=== PATIENT | female | born 1990 | race Caucasian/White ===

== ENCOUNTER 2022-06-26 08:00 | Outpatient (RCR) | payer OTHER, SELFPAY ==
[2022-06-26] MEDS: RHO(D) IMMUNE GLOBULIN 300 MCG/2 ML SYRINGE IM (11:33)
== END 2022-06-26 08:05 | disposition home or self-care (01) ==
LOC: ANHLAB 08:00
PROVIDERS: Visit Provider Advanced Practice Midwife
DX: Z29.13 Encounter for prophylactic Rho(D) immune globulin (principal); O36.0190 Maternal care for anti-D [Rh] antibodies, unspecified trimester, not applicable or unspecified; Z3A.00 Weeks of gestation of pregnancy not specified
CPT/HCPCS: 36415; 85461; 86850; 86900; 86901; 90384; 96372; J2790

== ENCOUNTER 2022-08-16 18:13 | Outpatient (CLI) | payer OTHER, SELFPAY ==
[2022-08-16] VITALS (14 sets, daily range): BP systolic 129–147; BP diastolic 71–91; PULSE 90–126
[2022-08-16 19:11] LABS: Basophils Percent Auto 0.3 % (0.2-1.2); Eosinophils Absolute Auto 0.2 K/mm3 (0-0.3); Eosinophils Percent Auto 1.3 % (0-4.4); Hematocrit 32.8 % (37.0-47.0); Hemoglobin 11.1 g/dL (12.0-15.0); Immature Granulocyte Absolute 0.07 K/mm3 (0.00-0.031); Immature Granulocyte Percent A 0.6 % (0-0.5); Lymphocytes Absolute Auto 2.31 K/mm3 (0.9-3.2); Lymphocytes Percent Auto 19.3 % (18.3-44.2); Mean Corpuscular HGB Conc 33.8 g/dl (32-36); Mean Corpuscular Hemoglobin 29.4 pg (26-34); Mean Platelet Volume 9.5 fl (7.4-10.4); Neutrophils Absolute Auto 8.4 K/mm3 (1.3-6.7); Neutrophils Percent Auto 70.5 % (45.5-73.1); Platelet Count Result 377 k/mm3 (150-375); Red Blood Count 3.77 M/mm3 (4.2-5.4); Red Cell Distribution Width 12.6 % (11.5-14.5); White Blood Count 11.9 K/mm3 (4.5-10.0)
[2022-08-16 19:23] LABS: Alanine Aminotransferase 13 U/L (6-35); Albumin Level 3.6 g/dL (3.5-5.1); Alkaline Phosphatase 177 U/L (38-126); Anion Gap 6 mmol/L (8-16); Aspartate Amino Transferase 18 U/L (14-36); Bilirubin,Total 0.4 mg/dL (0.2-1.3); Blood Urea Nitrogen 9 mg/dL (7-17); Calcium 9.2 mg/dL (8.4-10.2); Carbon Dioxide 24 mmol/L (22-30); Chloride 106 mmol/L (98-107); Estimated Glomerular Filt Rate > 60; Glucose 79 mg/dL (65-110); Potassium 4.2 mmol/L (3.4-5.0); Sodium 136 mmol/L (137-145)
[2022-08-16 19:26] LABS: Creatinine Urine 71.8 mg/dL; Total Protein Urine Random 11 mg/dL; Ur Ttl Prot Creatinine Ratio 0.15 mg/mg (0-0.20)
[2022-08-16 19:38] LABS: Appearance Urine Clear (Clear); Bacteria Urine 1+ /hpf; Bilirubin Urine Negative (Negative); Blood Urine Negative (Negative); Color Urine Yellow (Yellow); Glucose Urine UA Negative (Negative); Ketones Urine Negative (Negative); Leukocyte Esterase Ur 1+ LEU/UL (NEGATIVE); Need Manual Microscopic Reviewed; Nitrate Urine Negative (Negative); Non Pathogenic Casts 0-2; Protein Urine Negative (Negative); RBC Urine 0-2 /hpf (0-2); Specific Grav Ur 1.021 (1.001-1.035); Squamous Epithelial Cell Urine Occasional /hpf (Few); WBC Urine 0-5 /hpf (0-3); pH Urine 6.5 (5.0-9.0)
[2022-08-16 19:39] LABS: Add Urine Microscopic? YES
[2022-08-16] MEDS: ACETAMINOPHEN/BUTALBITAL/CAFFEINE 325-50-40 MG TABLET (FIORICET) 2 TAB PO (20:38)
[2022-08-16] MEDS: TERBUTALINE SULFATE 1 MG/ML VIAL 0.25 MG SUB-Q (21:14)
== END 2022-08-16 22:35 | disposition home or self-care (01) ==
LOC: ANHOBOP 18:20 → ANHOBPP 18:20
PROVIDERS: Visit Provider Advanced Practice Midwife
DX: O13.9 Gestational [pregnancy-induced] hypertension without significant proteinuria, unspecified trimester (principal); Z3A.00 Weeks of gestation of pregnancy not specified
CPT/HCPCS: 36415; 59025; 80053; 81001; 82570; 84156; 84550; 85025; 87086; 99199; A9270; J3105

== ENCOUNTER 2022-08-18 11:03 | Outpatient (NON) | payer OTHER, SELFPAY ==
[2022-08-18 11:46] LABS: Collection Time Urine 24 HOURS
[2022-08-18 11:50] LABS: Total Volume 24 Hour Urine 1100 ml
[2022-08-18 12:00] LABS: Creatinine Urine 101.7 mg/dL; Total Protein Urine 24 Hr 154 mg/24hr (28-141); Total Protein Urine Random 14 mg/dL
[2022-08-18 12:06] LABS: Creatinine Clearance Urine 125.8 ml/min (75-125); Patient Weight 224 Lbs
== END 2022-08-18 11:04 | disposition home or self-care (01) ==
PROVIDERS: Visit Provider Obstetrics & Gynecology
DX: O99.891 Other specified diseases and conditions complicating pregnancy (principal); R03.0 Elevated blood-pressure reading, without diagnosis of hypertension
CPT/HCPCS: 81050; 82575; 84156

== ENCOUNTER 2022-08-26 00:01 | Inpatient (IN) | payer OTHER, SELFPAY ==
[2022-08-26] VITALS (80 sets, daily range): BP systolic 107–154; BP diastolic 16–106; PULSE 76–143; RESP 12–18; TEMP 35.7–36.8; O2SAT 97–100; BMI 33.5
--- NOTE | 2022-08-26 00:33 | LDADM ---
This patient, Shirlene Johnson, was admitted to Labor/Delivery/Recovery 107 on 08/26/22 at 00:01. Plans for labor, pain management and were discussed with patient. Patient/family oriented to hospital policies and general routines including ID bracelet, bed and alarms, visiting hours, pain management, procedures, bathroom and other care routines, personal items, smoking policy, room service/diet and guest tray routines, security routines, and visiting hours. Patient/Family are encouraged to report perceived risks to care and to ask questions if they do not understand what they are told or what they should do. See OBIX for further documentation.
[2022-08-26] MEDS: OXYTOCIN 30 UNITS/NS 500 ML 30 UNITS/500 ML BAG IV CONT (00:49)
[2022-08-26] MEDS: LACTATED RINGERS 1,000 ML 125 ML IV CONT ×2 (00:49→05:50)
[2022-08-26 01:11] LABS: Basophils Percent Auto 0.3 % (0.2-1.2); Eosinophils Absolute Auto 0.2 K/mm3 (0-0.3); Eosinophils Percent Auto 1.6 % (0-4.4); Hematocrit 32.2 % (37.0-47.0); Hemoglobin 10.9 g/dL (12.0-15.0); Immature Granulocyte Absolute 0.07 K/mm3 (0.00-0.031); Immature Granulocyte Percent A 0.6 % (0-0.5); Mean Corpuscular HGB Conc 33.9 g/dl (32-36); Mean Corpuscular Hemoglobin 29.1 pg (26-34); Mean Corpuscular Volume 86.1 fl (80-100); Mean Platelet Volume 9.8 fl (7.4-10.4); Monocytes Percent Auto 8.3 % (2.6-8.5); Neutrophils Absolute Auto 8.7 K/mm3 (1.3-6.7); Neutrophils Percent Auto 71.2 % (45.5-73.1); Platelet Count Result 389 k/mm3 (150-375); Red Blood Count 3.74 M/mm3 (4.2-5.4); Red Cell Distribution Width 12.8 % (11.5-14.5); White Blood Count 12.2 K/mm3 (4.5-10.0)
[2022-08-26 01:38] LABS: Alanine Aminotransferase 15 U/L (6-35); Albumin Level 3.5 g/dL (3.5-5.1); Alkaline Phosphatase 188 U/L (38-126); Anion Gap 8 mmol/L (8-16); Aspartate Amino Transferase 20 U/L (14-36); Bilirubin,Total 0.4 mg/dL (0.2-1.3); Blood Urea Nitrogen 8 mg/dL (7-17); Calcium 8.7 mg/dL (8.4-10.2); Carbon Dioxide 20 mmol/L (22-30); Chloride 105 mmol/L (98-107); Estimated CRCL calculation 168 ml/min; Estimated Glomerular Filt Rate > 60; Glucose 104 mg/dL (65-110); Potassium 3.7 mmol/L (3.4-5.0); Sodium 133 mmol/L (137-145)
[2022-08-26 04:30] LABS: Glucose Point of Care 90 mg/dl (65-105)
[2022-08-26] MEDS: LACTATED RINGERS 1,000 ML 999 ML IV CONT (05:32)
--- NOTE | 2022-08-26 06:15 | WPDANESEPP ---
Anes - Eval Pre Procedure Procedure: labor epidural Date/Time: 08/26/22 06:15 Surgeon: rubén Preop Diagnosis: pain during labor Pre Op Diagnosis: iol Patient Data Age: 32 Gender: F Height: 1.73 m Weight: 100 kg Last Vital Signs Temp 35.8 C L 08/26/22 04:30 Pulse 99 08/26/22 06:13 BP 135/78 08/26/22 06:13 Pulse Ox 100 08/26/22 06:10 O2 Del Method Room Air 08/26/22 00:32 Allergies Allergy/AdvReac Type Severity Reaction Status Date / Time No Known Allergies Allergy Verified 08/26/22 00:37 Home Medications Medication Instructions Recorded Confirmed Type prenat.vits,aamir,srn-jpsw-issqi 1 tablet PO HS 08/17/22 08/26/22 History Laboratory Tests 08/26/22 08/26/22 08/26/22 00:27 00:28 00:28 WBC 12.2 K/mm3 H K/mm3 (4.5-10.0) RBC 3.74 M/mm3 L M/mm3 (4.2-5.4) Hgb 10.9 g/dL L g/dL (12.0-15.0) Hct 32.2 % L % (37.0-47.0) MCV 86.1 fl fl (80-100) MCH 29.1 pg pg (26-34) MCHC 33.9 g/dl g/dl (32-36) RDW 12.8 % % (11.5-14.5) Plt Count 389 k/mm3 H k/mm3 (150-375) MPV 9.8 fl fl (7.4-10.4) Immature Gran % (Auto) 0.6 % H % (0-0.5) Neut % (Auto) 71.2 % % (45.5-73.1) Lymph % (Auto) 18.0 % L % (18.3-44.2) [place] % (Auto) 8.3 % % (2.6-8.5) Eos % (Auto) 1.6 % % (0-4.4) Baso % (Auto) 0.3 % % (0.2-1.2) Lymph # (Auto) 2.20 K/mm3 K/mm3 (0.9-3.2) [place] # (Auto) 1.0 K/mm3 H K/mm3 (0.1-0.6) Eos # (Auto) 0.2 K/mm3 K/mm3 (0-0.3) Baso # (Auto) 0.0 K/mm3 K/mm3 (0.0-0.1) Abs Immat Gran (auto) 0.07 K/mm3 H K/mm3 (0.00-0.031) Absolute Neuts (auto) 8.7 K/mm3 H K/mm3 (1.3-6.7) Absolute Nucleated RBC 0.0 K/mm3 K/mm3 (0.0-0.012) Nucleated RBC % 0.0 % % (0.0-0.2) Sodium Potassium Chloride Carbon Dioxide Anion Gap BUN Creatinine Estim Creat Clear Calc Estimated GFR Glucose POC Capillary Glucose Uric Acid 4.0 mg/dL mg/dL (2.5-7.5) Calcium Total Bilirubin AST ALT Alkaline Phosphatase Total Protein Albumin RPR Blood Type A Negative Antibody Screen Positive Antibody Identification Inconclusive Antigen Identification Not Reportable ELPIDIO, IgG Interpret Neg ELPIDIO, Poly Interpret Pending ELPIDIO, Complement Interp Not Performed 08/26/22 08/26/22 08/26/22 00:28 00:28 04:24 WBC RBC Hgb Hct MCV MCH MCHC RDW Plt Count MPV Immature Gran % (Auto) Neut % (Auto) Lymph % (Auto) [place] % (Auto) Eos % (Auto) Baso % (Auto) Lymph # (Auto) [place] # (Auto) Eos # (Auto) Baso # (Auto) Abs Immat Gran (auto) Absolute Neuts (auto) Absolute Nucleated RBC Nucleated RBC % Sodium 133 mmol/L L mmol/L (137-145) Potassium 3.7 mmol/L mmol/L (3.4-5.0) Chloride 105 mmol/L mmol/L (98-107) Carbon Dioxide 20 mmol/L L mmol/L (22-30) Anion Gap 8 mmol/L mmol/L (8-16) BUN 8 mg/dL mg/dL (7-17) Creatinine 0.50 mg/dL L mg/dL (0.7-1.0) Estim Creat Clear Calc 168 ml/min ml/min Estimated GFR > 60 (59 - ) Glucose 104 mg/dL mg/dL (65-110) POC Capillary Glucose 90 mg/dl mg/dl (65-105) Uric Acid Calcium 8.7 mg/dL mg/dL (8.4-10.2) Bustera
[2022-08-26 06:41] LABS: Glucose Point of Care 97 mg/dl (65-105)
--- NOTE | 2022-08-26 07:38 | WPDOBADMIT ---
Obstetrics - Admit Note Admission Note: record reviewed. No pertinent additions to the history and/or any subsequent changes in the physical findings that are not consistent with the expected course of the were found. IOL, GHTN, 3.5/70/-2, AROM small amount of clear, odorless fluid, anticipate vaginal delivery Additions to the history and/or subsequent changes in the physical findings follow. None.
--- NOTE | 2022-08-26 10:28 | P.PCNOB_ITS ---
OB - Delivery Note Procedure Delivery date: 08/26/22 Procedure: Events: Gestational Hypertension Induction method: AROM and Per Pitocin Protocol Delivery monitor: External FHT and External Uterine Route of delivery: Episiotomy description: None Laceration Description: None Specimen: No Quantitative Blood Loss (ml): 182 [place] Baby Date of : 08/26/22 Time of : 10:19 Weeks of gestation at delivery: 37 Infant gender: Male presentation: vertex position: Left Occiput Anterior Placenta delivery description: Spontaneous Cord Vessel Description: 3 Vessels, Nuchal Cord (x1), Loose and Delayed Cord Clamping score one minute: 9 score five minutes: 9 Narrative: Mother and baby skin to skin in stable condition
[2022-08-26] MEDS: OXYTOCIN 30 UNITS/NS 500 ML 30 UNITS/500 ML BAG 125 UNITS IV CONT (11:44)
--- NOTE | 2022-08-26 12:49 | OBPPTRN ---
Patient transferred to post room # 284 via wheelchair. Support person present. Oriented to unit, room, information board, rooming in, admission packet and security measures. Patient verbalizes understanding.
--- NOTE | 2022-08-26 12:50 | OBPPTRN ---
Patient transferred to post room # 284 via wheelchair accompanied by and spouse. PT oriented to room and surrounding area. Support person present. Oriented to unit, room, information board, rooming in, admission packet and security measures. Pt introductions made and plan of care discussed per post , pain management, breast feeding, daily care activities. PT and spouse both recipients of such instructions and no barriers to learning identified. PT received such instructions per one to one discussion, mom baby care guide and demonstrations this shift. Patient verbalizes understanding.
[2022-08-26] MEDS: IBUPROFEN 600 MG TABLET PO (13:49)
--- NOTE | 2022-08-26 14:11 | PC.NURSE ---
[id number] Introductions were made, then consulted with patient to assess needs related to . Mother led the conversation with her?plans to feed?her infant and the?experience so far. mother does not have any history with her prior infants. Resources provided for inpatient and outpatient services with the bonding brochure, business card and mother states she has a resource [place] through Dr. Alva's office who is a friend and a CNMW successful with her children and helps patients in the office. Mother voiced understanding of information and will call if there is a request for assistance. Reported to the primary RN.
[2022-08-26] MEDS: DOCUSATE SODIUM 100 MG CAPSULE PO (16:42)
[2022-08-26 17:15] LABS: Rapid Plasma Reagin Non-Reactive (NonReactive)
[2022-08-27] MEDS: IBUPROFEN 600 MG TABLET PO ×3 (02:20→15:26)
[2022-08-27 04:01] LABS: Hematocrit 30.3 % (37.0-47.0)
[2022-08-27] MEDS: SIMETHICONE 80 MG TAB.CHEW PO ×2 (08:15→15:26)
[2022-08-27] MEDS: HYDROcodone/acetaminophen (*CRX) 5-325 MG TABLET 1 TAB PO ×2 (08:15→15:25)
[2022-08-27] MEDS: DOCUSATE SODIUM 100 MG CAPSULE PO (08:15)
[2022-08-27 08:30] VITALS: BP 121/81; PULSE 90; PULSE 98; RESP 16; TEMP 36.6; O2SAT 97; O2SAT 98
[2022-08-27] MEDS: MULTIVIT/MIN/PREN/FOL AC/IRON TABLET 1 TAB PO (09:00)
[2022-08-27] MEDS: ACETAMINOPHEN 325 MG TABLET 650 MG PO (12:30)
[2022-08-27] MEDS: RHO(D) IMMUNE GLOBULIN 300 MCG/2 ML SYRINGE IM (15:21)
[2022-08-27 17:00] VITALS: BP 128/72; PULSE 100; PULSE 98; RESP 16; TEMP 36.7; O2SAT 98
[2022-08-27 19:53] VITALS: BP 127/85; PULSE 91; RESP 16; TEMP 36.9
--- NOTE | 2022-08-28 09:07 | PM.OBPNVD ---
OB - PN: Subj Subjective Date/time seen: 08/28/22 09:07 Patient comments: no complaints baby status: doing well OB - PN: Obj Data Labs 08/27/22 02:37 08/26/22 00:28 Labs: Laboratory Results - last 24 hr 08/27/22 02:37 Blood Type A Negative Antibody Screen Negative Screen Negative Baby's Blood Type A pos Baby's ELPIDIO Negative Doses of RhIg Required 1 OB - PN A/P Plan day: 2 Plan: routine care and discharge home (F/U in 4 weeks) Time Spent With Patient Time: Total time spent is greater than 50% in coordination of care (as documented) at patient's floor/unit and/or counseling patient: Time with patient: less than 15 minutes Review of Systems Review of Systems: All systems reviewed & are unremarkable except as noted in HPI and below Exam Narrative: Fundus firm and vaginal flow controlled. No lower ext redness, warmth, or edema. Negative homans. Const: General: comfortable Chest: Breast/axilla inspection: normal inspection of the breasts Resp: Effort & Inspection: normal respiratory effort Cardio: Rate: regular rate GI: GI Palp: Yes Soft to palpation Psych: Appearance: grossly normal Affect: normal affect Attitude: cooperative Thought content: Yes Normal thought content present Judgement: Good judgement present (Psych)
--- NOTE | 2022-08-28 09:09 | P.DS_ITS ---
DS: Admitting Diagnosis Discharge Date 08/28/22 Admitting Diagnosis Labor DS: Discharge Diagnosis Discharge Diagnosis (1) Vaginal delivery: Code(s): O80 - Encounter for full-term uncomplicated delivery Status: Acute OB - DS: Summary OB Procedures : None OB Procedures Intrapartum: Spontaneous Vag Delivery OB Procedures: : None Time Spent with Patient Time attestation: Total time spent providing and/or coordinating discharge services: DS: Data Data Completed and Pending Labs on day of discharge: Labs from last 24 hours 08/27/22 02:37 Blood Type A Negative Antibody Screen Negative Screen Negative Baby's Blood Type A pos Baby's ELPIDIO Negative Doses of RhIg Required 1 Discharge Plan Discharge Attending physician on discharge: Olivia Block Discharging Clinician: Crys Moreland Patient Disposition: Home, Self-Care Activity: pelvic rest Diet: as tolerated Patient Instructions: Antibiotic Form Stand Alone Forms: General Discharge Information Follow-up/Referrals: Olivia Block CNM [Certified Nurse Radio Frequency Technician] - Discharge Medications: Continued #2 Tablet 1 tablet PO HS Date of admission: 08/26/22 00:01 Primary Care Provider: PHYSICIAN,AGRICULTURE EXTENSION SPECIALIST Admitting Provider: Byron Alva Attending physician on admission: Byron Alva Condition: Stable
[2022-08-28] MEDS: TETANUS,DIPHTHERIA,AC PERTUSSIS ADULT (0.5 ML) BOOSTRIX IM (10:00)
[2022-08-28] MEDS: MULTIVIT/MIN/PREN/FOL AC/IRON TABLET 1 TAB PO (10:00)
[2022-08-28] MEDS: IBUPROFEN 600 MG TABLET PO (10:00)
[2022-08-28] MEDS: DOCUSATE SODIUM 100 MG CAPSULE PO (10:00)
[2022-08-28 10:52] VITALS: BP 138/81; PULSE 105; PULSE 91; RESP 16; TEMP 36.4; O2SAT 100; O2SAT 98
[2022-08-29 09:41] VITALS: BP 139/89; PULSE 94; RESP 16; TEMP 37; O2SAT 99
== END 2022-08-28 11:50 | disposition home or self-care (01) | DRG 560 ==
LOC: ANHLDR 00:03 → ANHOB2 12:50
PROVIDERS: Advanced Practice Midwife; Admitting Provider Obstetrics & Gynecology; Visit Provider Obstetrics & Gynecology
DX: O13.4 Gestational [pregnancy-induced] hypertension without significant proteinuria, complicating childbirth (principal); O24.429 Gestational diabetes mellitus in childbirth, unspecified control; O69.81X0 Labor and delivery complicated by cord around neck, without compression, not applicable or unspecified; Z3A.37 37 weeks gestation of pregnancy; Z37.0 Single live birth
CPT/HCPCS: 36415; 80053; 82948; 84550; 85014; 85018; 85025; 85461; 86592; 86850; 86880; 86900; 86901; 86902; 90384; 90715; A9270; J2590; J2790; J2795; J7120

== ENCOUNTER 2023-05-02 16:33 | Outpatient (CLI) | payer OTHER, SELFPAY ==
--- NOTE | ~2023-05-02 | US_ITS ---
EXAMINATION: US thyroid DATE: 05/02/2023 17:42 INDICATION: Thyroid nodule. TECHNIQUE: Multiple ultrasound images of the thyroid were obtained. COMPARISON: None. FINDINGS: The right thyroid lobe measures 6.1 x 2.1 x 2.1 cm. The left thyroid lobe measures 5.3 x 1.6 x 2.1 c m. In the thyroid isthmus, there is a 2.0 cm solid, hypoechoic, wider than tall nodule with lobulate d margin without echogenic foci (TI-RADS TR4). In the right thyroid lobe, there is a 2.0 cm mixed cys tic and solid, hypoechoic, wider than tall nodule with ill-defined margin and punctate echogenic foci (TR4). In the right thyroid lobe, there is a 1.6 cm predominantly solid, hypoechoic, wider than tall nodule with ill-defined margin without echogenic foci (TR4). IMPRESSION: 1. Multinodular goiter. Ultrasound-guided fine-needle aspiration of 2 nodules is recommended. Reviewed, dictated and finalized at location E. HBONE BREAKER IMPRESSION: 1. Multinodular goiter. Ultrasound-guided fine-needle aspiration of 2 nodules i s recommended.
== END 2023-05-02 16:34 | disposition home or self-care (01) ==
DX: E04.2 Nontoxic multinodular goiter (principal)
CPT/HCPCS: 76536

== ENCOUNTER 2023-07-07 12:30 | Outpatient (CLI) | payer OTHER, SELFPAY ==
--- NOTE | ~2023-07-07 | US_ITS ---
EXAMINATION: US FNA w image guidance DATE: 07/07/2023 13:55 INDICATION: Thyroid nodules TECHNIQUE: A time-out was performed to verify the patient's name, date of , and procedure to be performed . The procedure and its benefits and risks were discussed with the patient. Risks specifically discus sed included bleeding and infection. The patient understood the risks and agreed to proceed. Manager ul trasound imaging of the thyroid demonstrated significant interval decrease in size of the previous no rell right thyroid nodule appears to result from resolution of a prior cephalad cystic component to th e nodule which no longer meets criteria for biopsy. The larger TI RADS 4 nodule at the thyroid isthmu s is identified in the left sided approach was chosen for the biopsy of this nodule. The neck was pre pped and draped in the usual sterile manner. 3 mL 1% lidocaine was used for local anesthesia. 6 pas ses were made with a 25G needle into the lesion. Appropriate needle location was documented with con tinuous sonographic guidance. A sterile bandage was applied. There were no immediate complications. FINDINGS: Grayscale ultrasound images demonstrate biopsy needles advanced into the previous noted TI RADS 4 nod ule at the thyroid isthmus which measures 1.8 cm in the current study. The second . The previous note d 2.0 cm TI RADS 4 mixed solid and cystic nodule at the inferior right thyroid has decreased to 9 mm in length now appearing solid, very hypoechoic and with echogenic foci with prominent comet tail amy fact, still TI RADS 4. Given the decrease in size below the threshold for biopsy, biopsy of this nodu le was deferred. A couple additional mixed solid and cystic and solid hypoechoic nodules in the mid r ight thyroid each measure 10 mm both of which remain below threshold for biopsy. IMPRESSION: 1. Successful ultrasound-guided fine needle aspiration of a 1.8 cm TI RADS 4 nodule at the thyroid i sthmus. 2. The second nodule in the right thyroid lobe previously meeting criteria for biopsy has significant ly decreased in size, no longer meeting criteria for biopsy which was deferred. Reviewed, dictated and finalized at location A. CTOR LOSS PREVENTION IMPRESSION: 1. Successful ultrasound-guided fine needle aspiration of a 1.8 cm TI RADS 4 n odule at the thyroid isthmus. 2. The second nodule in the right thyroid lobe previously meeting criteria for biopsy has significantly decreased in size, no longer meeting criteria for biop sy which was deferred.
== END 2023-07-07 12:31 | disposition home or self-care (01) ==
LOC: ANHIMG 12:32
PROVIDERS: Visit Provider Otolaryngology
DX: E07.9 Disorder of thyroid, unspecified (principal)
CPT/HCPCS: 10005; 88172; 88173; 88305

== ENCOUNTER 2023-07-08 12:29 | Outpatient (CLI) | payer OTHER, SELFPAY ==
--- NOTE | ~2023-07-08 | MR_ITS ---
EXAMINATION: MR brain/brain stem wo con DATE: 07/08/2023 13:02 INDICATION: DIZZINESS TECHNIQUE: Magnetic resonance imaging (MRI) of the brain and brainstem was performed without intraven ous contrast. Sequences included sagittal and axial T1-weighted SE, axial diffusion-weighted FS EPI A SSET, axial T2*-weighted GRE, axial T2-weighted FLAIR Propeller, and axial T2-weighted Propeller. Yvon arent diffusion coefficient (ADC) maps were created. COMPARISON: None. FINDINGS: No abnormal restricted diffusion to suggest acute ischemic infarct. No MRI evidence of hemorrhage or extra-axial collection. No suspicious foci of susceptibility to suggest prior intraparenchymal hemorr triston. Normal white matter signal. No evidence of advanced or lobar predominant parenchymal volume los s. The basilar cisterns are patent. Flow voids are preserved. Small right maxillary retention cysts/p olyps. Paranasal sinuses are otherwise within normal limits. Globes and orbital contents are within n ormal limits. IMPRESSION: Normal MR brain findings. Reviewed, dictated and finalized at location K. D CONTROLLER IMPRESSION: Normal MR brain findings.
== END 2023-07-08 12:30 | disposition home or self-care (01) ==
LOC: ANHIMG 12:31
DX: G43.109 Migraine with aura, not intractable, without status migrainosus (principal)
CPT/HCPCS: 70551

== ENCOUNTER 2023-10-06 09:37 | Outpatient (CLI) | payer OTHER, SELFPAY ==
--- NOTE | ~2023-10-06 | US_ITS ---
EXAMINATION: US thyroid, US soft tissue head and neck DATE: 10/06/2023 10:27 INDICATION: Thyroid nodule and neck swelling TECHNIQUE: Multiple ultrasound images of the thyroid were obtained. Additional ultrasound images imag es more laterally at the left and right neck in the region of swallowing were obtained. COMPARISON: 08/31/2022 FINDINGS: The right thyroid lobe measures 6.1 x 1.9 x 1.5 cm. The left thyroid lobe measures 5.5 x 2.0 x 1.6 c m. Thyroid isthmus measures 6 mm in thickness. Again seen are multiple thyroid nodules. The TI RADS 4 solid wider than tall hypoechoic nodule with lobular ill-defined margins at the isthmus is decreased slightly in size from 2.0 cm on the prior study to 1.7 cm the current study with interval benign bio psy consistent with a benign follicular nodule . There is a 1.1 cm nearly entirely cystic TI RADS 1 nodule at the inferior left thyroid. There are 2 nodules in the right thyroid measuring 1 cm and 9 mm which are wider than tall, solid hypoechoic with smooth margins and without echogenic foci TI RADS 4 . Finally there is the previously 2.0 cm TI RADS 4 nodule which has significantly decreased in size, in particular the cystic component and which now measures 1 cm in maximal diameter. (TI-RADS 5, highl y suspicious , FNA if >=1.0 cm, annual followup is >0.5 cm). There is normal echotexture, echogenicit y and vascular flow throughout the thyroid gland. Imaging of the left and right neck demonstrates multiple normal sized and normal-appearing elongated ovoid lymph nodes, the largest in the level 3 right neck measuring 8 mm in maximal short axis diamete r with central echogenic fatty hilum. No abnormally enlarged cervical lymph nodes or other abnormal m asses or fluid collections identified. IMPRESSION: 1. Multinodular goiter with recent benign biopsy of the single nodule meeting criteria for biopsy. Re commend annual ultrasound follow-up. 2. Normal right and left-sided cervical lymph nodes. No pathologically enlarged lymphadenopathy or ot her abnormal masses or fluid collections identified. Reviewed, dictated and finalized at location A. IMPRESSION: 1. Multinodular goiter with recent benign biopsy of the single nodule meeting melany schwartz for biopsy. Recommend annual ultrasound follow-up. 2. Normal right and left-sided cervical lymph nodes. No pathologically enlarged lymphadenopathy or other abnormal masses or fluid collections identified.
== END 2023-10-06 09:38 | disposition home or self-care (01) ==
LOC: ANHIMG 09:38
DX: R22.1 Localized swelling, mass and lump, neck (principal); E04.2 Nontoxic multinodular goiter
CPT/HCPCS: 76536

== ENCOUNTER 2023-12-13 09:22 | Outpatient (CLI) | payer OTHER, SELFPAY ==
--- NOTE | ~2023-12-13 | MM_ITS ---
EXAMINATION: MM screening alex BI w todd HISTORY: Screening TECHNIQUE: Craniocaudal and mediolateral oblique 3-D tomosynthesis images were obtained and synthetic 2-D images were generated. CAD analysis was submitted and interpreted. COMPARISON: No prior mammogram is available for comparison at this institution. BREAST PARENCHYMAL COMPOSITION: Not dense: There are scattered areas of fibroglandular density. FINDINGS: There is no evidence of suspicious mass, calcification, or architectural distortion to sugg est malignancy in either breast. There has been no suspicious interval change. IMPRESSION: 1. No mammographic evidence of malignancy. 2. Recommend routine screening mammography in one year. BI-RADS Category 1: Negative Reviewed, dictated and finalized at location B.
== END 2023-12-13 09:23 | disposition home or self-care (01) ==
LOC: ANHIMG 09:23
PROVIDERS: Visit Provider Advanced Practice Midwife
DX: Z12.31 Encounter for screening mammogram for malignant neoplasm of breast (principal)
CPT/HCPCS: 77063; 77067

== ENCOUNTER 2024-07-23 16:27 | Outpatient (CLI) | payer OTHER, SELFPAY ==
--- NOTE | ~2024-07-23 | US_ITS ---
EXAMINATION: US thyroid DATE: 07/23/2024 17:13 INDICATION: Thyroid nodule. TECHNIQUE: Multiple ultrasound images of the thyroid were obtained. COMPARISON: Ultrasound 05/02/2023, 10/06/2023 FINDINGS: The right thyroid lobe measures 5.3 x 2.2 x 1.5 cm. The left thyroid lobe measures 5.0 x 2.2 x 1.8 c m. The thyroid demonstrates coarsened echotexture. In the right thyroid lobe, there is an 8 mm cysti c nodule (TI-RADS TR1). In the right thyroid lobe, there is an 11 mm solid, hypoechoic, wider than ta ll nodule with ill-defined margin without echogenic foci (TR4), decreased in size from 05/02/23, like ly benign. In the left thyroid lobe, there is a 9 mm almost entirely cystic nodule (TR1). In the left thyroid lobe, there is a 10 mm mixed cystic and solid, hypoechoic, wider than tall nodule with ill-d efined margin without echogenic foci (TR3). IMPRESSION: 1. Thyroid nodules, likely not clinically significant. No follow-up is needed. Reviewed, dictated and finalized at location B.
--- OUTSIDE RECORDS SUMMARY | 2024-07-23 18:08 | XMS_ITS | Clinical Summary ---
Author Organization [employer] [facility] Address [id number] [place] [id number] Care Team Providers Care Visual Merchandiser Name Role Phone Miracle Colon MD Primary Care Provider [phone] Allergies No known active allergies Medications rizatriptan (Maxalt) 10 mg TabletIndication s:Periodic headache syndrome, not intractable Take 1 Tablet (10 mg) by mouth 2 times daily as needed for Migraine. may repeat in 2 hours; max dose 30mg in 24 hours 9 Tablet 1 0 Active meclizine (ANTIVERT) 25 mg tablet 0 Active fexofenadine-pse udoephedrine SR 12 hour (BETZAIDA-D) 60-120 mg tablet Take 1 Tablet by mouth. 0 Active ondansetron (ZOFRAN ODT) 4 mg Tablet, Rapid Dissolve 0 Active fluticasone propionate (FLONASE) 50 mcg/spray [place], Suspension nasal inhaler Administer 2 Sprays in each nostril. 0 Active butalbital-aceta minophen-caffein e (FIORICET) 50-325-40 mg tabletIndication s:Migraine with aura and without status migrainosus, not intractable Take 1 Tablet by mouth every 4 hours as needed for Migraine. 30 Tablet 5 0 Active propranoloL (INDERAL) 40 mg tablet Take 1 Tablet (40 mg) by mouth 2 times daily. 60 Tablet 5 0 Active Active Problems Problem Noted Date Diagnosed Date Migraine with aura and witho ut status migrainosus, not intractable 03/03/2020 Chronic diarrhea 05/17/2018 Generalized anxiety disorder 05/17/2018 Resolved Problems Problem Noted Date Diagnosed Date Resolved Date Encounter for routine adult health examination without abnormal findings 05/17/2018 Family History Medical History Relation Name Comments Healthy Brother Cholo Johnson Diabetes Father Orion Johnson Breast Cancer Mother Lety Johnson Healthy Son Mathew Johnson Relation Name Status Comments Brother Cholo Johnson Alive Father Orion Johnson Alive Mother Lety Johnson Alive Son Mathew Johnson Alive Social History Tobacco Use Types Packs/Day Years Used Date Smoking Tobacco: Never Smokeless Tobacco: Never Alcohol Use Standard Drinks/Week Comments Never 0 (1 standard drink = 0.6 oz pur e alcohol) Social Comments No Sex and Gender Information Value Date Recorded Sex Assigned at Not on file Legal Sex Female 11:20 PM CDT Gender Identity Not on file Sexual Orientation Not on file Last Filed Vital Signs Vital Sign Reading Time Taken Comments Blood Pressure 118/76 12/19/2019 1:03 PM CDT Pulse 88 12/19/2019 1:03 PM CDT Temperature 37.1 C (98.7 F) 12/19/2019 1:03 PM CDT Respiratory Rate - - Oxygen Saturation 98% 12/19/2019 1:03 PM CDT Inhaled Oxygen Concentration - - Weight 90.3 kg (199 lb) 03/03/2020 9:06 AM CDT Height 172.7 cm (5' 8 ) 03/03/2020 9:06 AM CDT Body Mass Index 30.26 03/03/2020 9:06 AM CDT Plan of Treatment Health Maintenance Due Date Last Done Comments HEPATITIS B VACCINES (1 of 3 - 19+ 3-dose series) 2010 CERVICAL CANCER SCREENING 05/04/20212016 (Previously completed) INFLUENZA VACCINE (#1) 2023 , 08/09/2018 Preventative Visit- Commercial 05/15/2024 DTAP/TDAP/TD VACCINES (2 - T d or Tdap) 08/31/2030 08/31/2020 HPV VACCINES Aged Out No longer eligi ble based on patient's age to complete this topic Insurance [employer] OPTIONS PPO [id number] CHOICE PLUS Care Teams Visual Merchandiser Relationship Specialty [place] [id number] [phone] PCP - General Internal Medicine 05/14/18
--- OUTSIDE RECORDS SUMMARY | 2024-07-23 18:08 | XMS_ITS | Encounter Summary ---
Author Organization [facility] Address [address] [place] [address] Care Team Providers Care Mechanical Tech Name Role Phone Miracle Colon MD Primary Care Provider [phone] Milan Pierce MD Primary Care Provider [phone] Encounter Details Date Type Department Care Team (Late st Contact Info) Description 06/20/2022 Telephone [facility] Women's Health Maternal & Care [address] [place] [address] [place] Social History Tobacco Use Types Packs/Day Years Used Date Smoking Tobacco: Never Smokeless Tobacco: Never Alcohol Use Standard Drinks/Week Comments Not Currently 0 (1 standard drink = 0.6 oz pur e alcohol) PHQ-2 Answer Date Recorded PHQ2 TOTAL SCORE 0 10/08/2020 [place] Depression Scale Answer Date Recorded Last EPDS Total Score Not on file 12/18/2020 The thought of harming myself has occurred to me . Never 12/18/2020 Comments Yes Sex and Gender Information Value Date Recorded Sex Assigned at Not on file Gender Identity Not on file Sexual Orientation Not on file documented as of this encounter Functional Status Functional Status Response Date of Assess ment Is person deaf or have serious hearing difficult y? No 11/10/2020 Is person blind or have serious difficulty seein g? No 11/10/2020 Does person have serious dif ficulty walking/climbing stairs? No 11/10/2020 Does person have difficulty dressing/bathing? No 11/10/2020 Does person have difficulty doing errands alone? No 11/10/2020 Cognitive Status Response Date of Assessm ent Does person have difficulty concentrating/remembering/making decisions? No 11/10/2020 documented as of this encounter Plan of Treatment Not on file documented as of this encounter Visit Diagnoses Not on filedocumented in this encounter Care Teams Mechanical Tech Relationship Specialty Start Date End Date Miracle Colon MD PCP - General Internal Medicine 03/31/20 04/24/23 Milan Pierce MD [address] [id number] PCP - General Family Medicine 04/25/23 documented as of this encounter
--- OUTSIDE RECORDS SUMMARY | 2024-07-23 18:08 | XMS_ITS | Data Portability ---
Author Organization [facility], [place] Address [address] [place] [address] Assessment Encounter Date Assessment Date Assessment LastModified by Organization Details LastModified Time 07/07/2023 07/07/2023 Annual gynecological exam performed. Patient will come back in a year unless there are new symptoms. Take Calcium with Vitamin D 1200mg daily if not receiving in daily diet. It is strongly advised to have an annual flu shot and up can obtain at most pharmacies. If you have not had a TDap shot in the last 10 years you should obtain one as well. Discussed with patient & provided with information regarding Gardisil vaccine to prevent the 4 strains for HPV that cause cervical cancer if under age 26. Encourage safe sexual practices, to use condoms and limit partners if not already in a monogamous relationship. Do monthly self breast exams. Have mammogram yearly or every other year depending on family history. BRCA testing is now available for patients with strong genetic history of female cancer. If interested contact the office. Engage in daily exercise of low impact aerobic exercise 45-60 minutes 4-5 times weekly. Avoid tobacco and illicit drugs as well as using moderation with alcohol intake less than 1-2 8 oz beverages daily. This lifestyle behavior pattern will lead to less health conditions and longer life span. If BMI greater than 25 weight watchers or dietary consult advised. Patient received above instructions, and questions have been answered. If you have any questions please call or respond to this email. Patient was made aware of the patient portal and may obtain a paper copy of today's plan if desired. mammogram every year starting now Not available 07/07/2023 11:32:18 Plan of Treatment Reminders Order Date Submit Date Provider Last Modified By Organization Details Last Modified Time Details Appointments [facility] 2024 10:00A M Olivia Block, CHARLA Not available Not available Not available Lab test, urine 2023 [email or web address], [address], [place], [address], 02/23/2024 11:32:26 17-hydrox yprogeste barbra, QN, serum 2023 [facility] (Lab), [address], [place], [address], 02/29/2024 17:29:14 dhea-sulf ate, serum 2023 [facility] (Lab), [address], [place], [address], 02/29/2024 17:29:09 estradiol , serum 2023 [facility] (Lab), [address], [place], [address], 02/29/2024 17:29:10 FSH (follicle -stimulat ing hormone), serum 2023 [facility] (Lab), [address], [place], [address], 02/29/2024 17:29:10 HbA1c (hemoglob in A1c), blood 2023 [facility] (Lab), [address], [place], [address], 02/29/2024 17:29:13 lh (luteiniz ing hormone), serum 2023 [facility] (Lab), [address] [place], [address], 02/29/2024 17:29:09 progester one, serum 2023 [facility] (Lab), [address], [place], [address], 02/29/2024 17:29:10 prolactin , serum 2023 [facility] (Lab), [address], [place], [address], 02/29/2024 17:29:11 shbg (sex hormone-b inding globulin) , serum 2023 [facility] (Lab), [address], [place], [address], 02/29/2024 17:29:12 TSH, serum or plasma 2023 [facility] (Lab), [address], [place], [address], 02/29/2024 17:29:12 testoster one free/test osterone total, ratio, serum 2023 [facility] (Lab), [address], [place], [address], 02/29/2024 17:29:14 T4, free, serum 2023 [facility] (Lab), [address], [place], [address], 02/29/2024 17:29:12 free T3, quantitat jean carlos, dialysis serum or plasma 2023 [facility] (Lab), [address], [place], [address], 02/29/2024 17:29:11 thyroglob ulin Ab, serum 2023 [facility] (Lab), [address], [place], [address], 02/29/2024 17:29:13 Referral None recorded. Procedures None recorded. Surgeries None recorded. Imaging US, pelvis 2023 [address], [address], [place], [address], 03/06/2024 20:57:08 US, transvagi nal [address]23 [address], [address], [place], [address], 03/06/2024 20:57:08 US, obstetric , biophysic al profile + non-stres s test 2022 [address], [address], [place], [address], 08/17/2022 22:51:45 Medication Orders Diflucan 150 mg tablet 2022 023 [id number], [address], [place], [id number], 07/07/2023 11:14:38 nystatin- triamcino lone 100,000 unit/gram -0.1 % topical ointment 2022 024 MASSIMO [facility] #[id number], [address], [place], [id number], 07/07/2023 11:14:57 Patient TargetsNo targets recorded. Patient InstructionsNo instructions recorded. Reason for Referral None Reported. Results Created Date Observation Date Name Description Value Unit Range Abnormal Flag Note LastModifiedBy Organization Detail LastModifiedTime 08/18/1908/17/2022 CULTU RE: GROUP B STREP SCREE N, REFLE X SUSCE PTIBI LITY result report SEE RESULT S BELOW Test: Cultu re: Group B Strep , Refle x Susce ptibi lity ([facility]/ [facility] ) Speci men Sourc e: Vagin a/Rec reinaldo Speci men Type: Vagin al/Re ctal Speci men Date: 023 5:34 PM Resul t Date: 023 2:44 PM Resul t Statu s: Final resul t Abnor mal: No Resul ting Lab: [facility] [address] [facility] [address] Tel: CULTU RE ----- ----- ----- --- No Group B strep isola rell at 2 days (theron ctive broth enhan cemen t) Not Available [facility] (Lab) [address], [place], [address], 08/20/2022 15:46:34 07/07/19 24 07/07/2023 IMAGE GUIDE D PAP AND HPV REGAR DLESS image guided Pap, HPV regardless of Pap result SEE RESULT S BELOW CASE REPOR T: Cytol ogy Gynec ologi lena Repor t Case: [id number] Autho micheal stevenson Provi jose: Olivia Loomis, POWER Colle cted: 07/07 1557 Order ing Locat ion: [place] Patho logy Recei laine: 07/08 0227 First Scree n: Javier Whitehead, CT Speci men: Scree darleen Pap - Image d, Cervi x STATE MENT OF ADEQU ACY: Satis facto ry for evalu ation Trans forma tion zone compo nent prese nt FINAL DIAGN OSIS: Negat jean carlos for Intra epith elial Olaf ornelas or Jojo shirley (NIL) . Elect franco escobar yaa d by Javier Whitehead, CT on 2023 at 3:33 PM ----- ----- ----- ----- ----- ----- ----- ----- ----- ----- ----- ----- ----- ----- ----- ----- ----- ---- HPV RESUL TS: HPV mRNA E6/E7 : No HPV mRNA Detec rell NOTE: This high risk HPV mRNA assay detec ts fourt een high- risk HPV types (16, 18, 31, 33, 35, 39, 45, 51, 52, 56, 58, 59, 66, 68) witho ut diffe renti ation . COMME NT: This speci men was revie wed by a Cytot echno logis t and/o r Patho logis t (as indic ated in this repor t) after evalu ation using the Thinp rep Imagi ng Syste m. CLINI ELNA INFOR MATIO N: Menst rual Statu s: LMP (if appli cable ): 06/15 Clini lena Histo ry/Pr eviou s Pap: Type of Neopl rebekah (if appli cable ): Signi fican t Clini lena Findi ngs: Other Histo ry: Hormo ant (if appli cable ): PAP EDUCA AMELIA L NOTE: The Pap Test is a scree darleen test with an inher ent false negat jean carlos rate. Liqui d-bas ed sampl ing may decre ase, but will not elimi sendy, false negat jean carlos resul ts. A negat jean carlos resul t does not precl ude the prese nce and/o r devel opmen t of disea se, since the prese nce of abnor mal cells in the sampl e depen ds on the locat ion of the lesio n and sampl ing techn ique. Eli nued regul ar scree darleen is the best metho d of cance r preve ntion . If repor rell cytol ogic findi ng do not corre late with physi lena and/o r histo rical findi ngs, furth er inves tigat ion is recom yue d, as clini héctor mclaughlin nted. Not Available [facility] (Lab) [address], [place], [address], 07/12/2023 16:36:37 02/23/20 24 02/23/2024 DHEA SULFA TE DHEA-sulfate 214 ug/dL Femal e Range s Age(y ) Range (ug/d L) 10-15 34-28 0 15-20 65-36 8 20-25 148-4 07 25-35 99-34 0 35-45 61-33 7 45-55 35-25 6 55-65 19-20 5 65-75 9-246 > 75 12-15 4 Not Available [facility] (Lab) [address], [place], [address], 02/29/2024 17:29:09 02/23/20 24 02/23/2024 LH (LUTE NIZIN G HORMO NE) LH 6.5 mIU/m L This assay was perfo rmed using [employer] ratio n reage nts and test kits. Value s obtai elvin with other assay metho ds or kits canno t be used inter parker eably . Femal es Mid-F ollic ular: 2.4-1 2.6 mIU/m L Mid-C ycle: 14.0- 95.6 mIU/m L Mid-L uteal : 1.0-1 1.4 mIU/m L Postm enopa use: 7.7-5 8.5 mIU/m L Not Available [facility] (Lab) [address], [place], [address], 02/29/2024 17:29:09 02/23/20 24 02/23/2024 ESTRA DIOL estradiol 87.6 pg/mL This assay was perfo rmed using [employer] reage nts and test kits. Value s obtai elvin with other assay metho ds or kits canno t be used inter parker eably . Femal e Estra diol Range s: Folli cular phase 12.4- 233 pg/mL Ovula tion phase 41.0- 398 pg/mL Lutea l phase 22.3- 341 pg/mL Postm enopa usal <5-13 8 pg/mL Healt hy Pregn ant Women 1st Trime ster 154-3 243 pg/mL 2nd Trime ster 1561- 40679 pg/mL 3rd Trime ster 8525- >3000 0 pg/mL Not Available [facility] (Lab) [address] [place], [address], 02/29/2024 17:29:10 02/23/20 24 02/23/2024 FSH FSH 3.9 mIU/m L This assay was perfo rmed using [employer] reage nts and test kits. Value s obtai elvin with other assay metho ds or kits canno t be used inter [facility] . Femal es Folli cular : 3.5-1 2.5 mIU/m L Ovula tion: 4.7-2 1.5 mIU/m L Lutea l: 1.7-7 .7 mIU/m L Postm enopa use: 25.8- 134.8 mIU/m L Not Available [facility] (Lab) [address], [place], [address], 02/29/2024 17:29:10 02/23/20 24 02/23/2024 PROGE STERO NE progesterone 13.50 NG/mL This assay was perfo rmed using [employer] reage nts and test kits. Value s obtai elvin with other assay metho ds or kits canno t be used inter [facility] . Femal e Proge stero ne Range s: Folli cular phase 0.06- 0.89 ng/mL Ovula tion phase 0.12- 12.00 ng/mL Lutea l phase 1.83- 23.90 ng/mL Postm enopa usal <0.05 -0.13 ng/mL Healt hy Pregn ant Women 1st Trime ster 11.0- 44.30 2nd Trime ster 25.40 -83.3 0 3rd Trime ster 58.70 -214. 00 Not Available [facility] (Lab) [address], [place], [address], 02/29/2024 17:29:10 02/23/20 24 02/23/2024 FREE T3 T3, free 3.38 pg/mL 2.00-4 .40 This assay is susce ptibl e to inter feren ce from high level s of bioti n which may false ly eleva te resul ts. Pleas e corre late with clini lena findi ngs inclu ding TSH and FT4 resul ts. If clini héctor indic ated, Free T3 by Equil alban Wallace sis LC/MS may be perfo rmed. Not Available [facility] (Lab) [address], [place], [address], 02/29/2024 17:29:11 02/23/20 24 02/23/2024 PROLA CTIN prolactin, total 14.20 NG/mL 4.79-2 3.30 This assay was perfo rmed using [employer] n reage nts and test kits. Value s obtai elvin with other assay metho ds or kits canno t be used inter parker eably . Not Available [facility] (Lab) [address], [place], [address], 02/29/2024 17:29:11 02/23/20 24 02/23/2024 TSH, REFLE X FREE T4 TSH 1.24 uIU/m L 0.30-5 .33 Not Available [facility] (Lab) [address], [place], [address], 02/29/2024 17:29:12 02/23/20 24 02/23/2024 T4 FREE T4, free 0.75 NG/dL 0.60-1 .40 This assay is susce ptibl e to inter feren ce from high level s of bioti n which may false ly eleva te resul ts. Pleas e corre late with clini lena findi ngs. Not Available [facility] (Lab) [address], [place], [address], 02/29/2024 17:29:12 02/23/20 24 02/23/2024 HUMAN SEX HORMO NE NATIVIDAD NG GLOBU VEGA sex hormone binding globulin 49.5 nmole s/L 18.2-1 35.5 Not Available [facility] (Lab) [address], [place], [address], 02/29/2024 17:29:12 02/23/20 24 02/23/2024 HEMOG LOBIN A1C hemoglobin A1C 5.7 % 0-5.6 high The Ameri can Diabe itz Assoc iatio n recom mends that a prima ry goal of thera py guillermo d be a HBA1C of < 7% and that physi cians shoul d reeva luate the treat ment regim en in patie nts with HBA1C value s consi stent ly > 8%. <5.7% Arleen l 5.7 - 6.4% Incre ased risk for diabe itz >=6.5 % Diagn ostic of diabe itz <7.0% Goal of thera py >8.0% Actio n sugge sted Not Available [facility] (Lab) [address], [place], [address], 02/29/2024 17:29:13 02/23/20 24 02/23/2024 THYRO ID ANTIB BENEDICTO PANEL thyroglobuli n antibody <1.0 IU/mL <=3.9 Not Available [facility] (Lab) [address], [place], [address], 02/29/2024 17:29:13 02/23/20 24 02/23/2024 THYRO ID ANTIB BENEDICTO PANEL thyroperoxid ase antibodies 0.5 IU/mL 0.0-9. 0 This assay was perfo rmed using [employer] an [employer] reage nts and test kits. Value s obtai elvin with other assay metho ds or kits canno t be used inter parker eably . Not Available [facility] (Lab) [address], [place], [address], 02/29/2024 17:29:13 02/23/20 24 02/23/2024 TESTO STERO NE, FREE( DIALY SIS) AND TOTAL (LC/M S/MS) testosterone , total 25 NG/dL 2-45 For addit ional infor chris ruiz e refer to http: //selvin pierreque stdia gnost ics.c om/fa q/ Total Testo stero neLCM SMSFA Q165 (This link is being provi ded for infor manfred goisn/ educa amelia l purpo ses only. ) This test was devel oped and its bry tical perfo rmanc e marce cteri stics have been deter mined by [employer] [place], [place]. It has not been clear ed or appro laine by the U.S. Food and Drug Admin istra tion. This assay has been valid ated pursu ant to the CLIA regul ation s and is used for clini lena purpo ses. Not Available [facility] (Lab) [address], [place], [address], 02/29/2024 17:29:14 02/23/2002/23/2024 TESTO STERO NE, FREE( DIALY SIS) AND TOTAL (LC/M S/MS) testosterone , free 3.0 pg/mL 0.1-6. 4 This test was devel oped and its bry tical perfo rmanc e marce cteri stics have been deter mined by [employer] [place], [place]. It has not been clear ed or appro laine by the U.S. Food and Drug Admin istra tion. This assay has been valid ated pursu ant to the CLIA regul ation s and is used for clini lena purpo ses. Perfo rming Organ izati on Infor matio n: Site ID: [id number] Name: Brandon gilliland Tiller kaushikbogdan Addre ss: [id number] [place], [place] Direc tor: Christa Carmona MD PhD Not Available [facility] (Lab) [address] [place], [address], 02/29/2024 17:29:14 02/23/20 24 02/23/2024 17-OH PROGE STERO NE 17-hydroxypr ogesterone, lc/MS/MS 177 NG/dL Adult Femal e Refer ence Range s for 17-Hy droxy proge stero ne: Pre-M enopa usal Mid Folli cular : 23-10 2 ng/dL Pre-M enopa usal Surge : 67-34 9 ng/dL Pre-M enopa usal Mid Lutea l: 139-4 31 ng/dL Postm enopa usal Phase : < or = 45 ng/dL Pregn bernard: First Trime ster: 78-45 7 ng/dL Secon d Trime ster: 90-35 7 ng/dL Third Trime ster: 144-5 78 ng/dL This test was devel oped and its bry tical perfo rmanc e marce cteri stics have been deter mined by [employer]. It has not been clear ed or appro laine by FDA. This assay has been valid ated pursu ant to the CLIA regul ation s and is used for clini lena purpo ses. Perfo rming Organ izati on Infor matio n: Site ID: [id number] Name: [employer]/George dayo [facility] Darrell Turk transirena , Addre ss: [id number] [place] [phone] Direc tor: Judi estrella MD,Ph D,JOSE EDUARDO Not Available [facility] (Lab) [address], [place], [address], 02/29/2024 17:29:14 02/23/20 24 02/23/2024 pregn bernard test, urine HCG negati ve Not Available [facility] [address], [place], [address], 02/23/2024 11:32:09 07/21/19 23 07/20/2022 US, obste tric, bioph ysica l profi le + non-s tress test No observ ation record ed. [email or web address] [place] [facility] [address], [place], [address], 07/20/2022 14:46:44 07/21/19 23 07/20/2022 US, obste tric, bioph ysica l profi le + non-s tress test No observ ation record ed. MASSIMO [address], [place], [address], 07/28/2022 09:42:05 07/21/19 23 07/20/2022 non-s tress test No observ ation record ed. [email or web address] [place] [address], [place], [address], 07/20/2022 15:30:37 07/30/19 23 07/29/2022 non-s tress test No observ ation record ed. [email or web address] [facility] [address], [place], [address], 07/29/2022 11:06:50 07/30/19 23 07/29/2022 US, obste tric, bioph ysica l profi le No observ ation record ed. [email or web address] [place] [address], [place], [address], 07/29/2022 20:06:55 07/30/19 23 07/29/2022 US, obste tric, bioph ysica l profi le No observ ation record ed. [email or web address] [address], [place], [address], 07/29/2022 20:06:56 08/06/19 23 08/05/2022 non-s tress test No observ ation record ed. [email or web address] [place] [address], [place], [address], 08/05/2022 11:43:07 08/06/19 23 08/05/2022 US, obste tric, follo w-up No observ ation record ed. [email or web address] [address], [place], [address], 08/05/2022 11:51:05 08/06/19 23 08/05/2022 US, obste tric, bioph ysica l profi le + non-s tress test No observ ation record ed. [email or web address] [facility] [address], [place], [address], 08/05/2022 13:34:43 08/06/19 23 08/05/2022 US, obste tric, trans vagin al No observ ation record ed. [email or web address] [place] [address], [place], [address], 08/05/2022 13:34:34 08/13/19 23 08/12/2022 US, obste tric, follo w-up No observ ation record ed. [email or web address] [place] [address], [place], [address], 08/15/2022 10:48:18 08/13/1908/12/2022 US, cordelia gonzalez, bioph ysica l profi le + non-s tress test No observ ation record ed. [email or web address] [place] [address], [place], [address], 08/12/2022 11:17:35 08/13/19 23 08/12/2022 non-s tress test No observ ation record ed. [email or web address] [place] [address], [place], [address], 08/12/2022 11:38:55 08/13/19 23 08/12/2022 US, obste tric, follo w-up No observ ation record ed. MASSIMOAUDRA [address], [place], [address], 08/22/2022 08:58:53 08/18/1908/17/2022 US, cordelia tric, bioph ysica l profi le + non-s tress test No observ ation record ed. [email or web address] [place] [address], [place], [address], 08/17/2022 12:08:11 08/18/1908/17/2022 non-s tress test No observ ation record ed. [email or web address] [place] [address], [place], [address], 08/17/2022 12:11:50 08/18/19 23 08/17/2022 US, obste tric, bioph ysica l profi le + non-s tress test No observ ation record ed. [email or web address] [address], [place], [address], 08/18/2022 09:47:22 12/13/1912/13/2023 MAMMO , scree darleen, bilat eral No observ ation record ed. [facility] [address], [place], [address], 12/13/2023 12:30:28 03/06/20 24 03/06/2024 US, pelvi s No observ ation record ed. [facility] [address], [place], [address], 03/06/2024 17:29:50 03/06/2003/06/2024 US, trans vagin al No observ ation record ed. [facility] [address], [place], [address], 03/06/2024 17:30:03 03/06/20 24 03/06/2024 US, pelvi s No observ ation record ed. MASSIMO [address], [place], [address], 03/06/2024 11:35:41 Result Notes None recorded. Problems Name Problem SNOMED Code Status Onset Date Resolution Date Notes Provider Name and Address Organization Details Recorded Time Pregnanc y 99763808 Completed 202208/29/2022 Emi Malin [facility] [place] - [facility] 04/17/202 3 17:51:39 Cystic fibrosis 807145333 Completed +CARRIER - informed, FOB not tested [facility] 17:51:33 Low lying placenta 765030175 Completed Marginal previa - RESOLVED Emi alvarez, [facility] 3 17:51:33 Migraine 14010714 Completed history of Emi alvarez, [facility] 3 17:51:33 Past pregnanc y history of gestatio nal hyperten umm 346755971 Completed delivered last baby @ 37wks, did not start ASA Emi Malin [facility] 3 17:51:33 RhD negative 968177852 Completed Rhogam received 06/26/22 Emi Malin [facility] 3 17:51:33 Gestatio nal diabetes mellitus 30695802 Completed bs QID , testing 32wks Emi Malin [facility] 3 17:51:33 Pregnanc y-induce d hyperten umm 31120387 Completed waiting on 24 hr urine plan 37 week IOL Emi Malin [facility] 3 17:51:33 Problem Notes None recorded. Procedures Surgical History Date Name Laterality Status Provider Name and Address Organization Details Recorded Time 07/07/2023 Date of Last Pap Smear completed Rozina Nguyen [facility] 07/07/2023 11:15:41 Imaging Results Imaging Date Name Status LastModified by Organization Details LastModified Time 07/20/2022 US, obstetric, biophysical profile + non-stress test completed [email or web address] [facility] [address], [place], [address], 07/20/2022 14:46:44 07/20/2022 US, obstetric, biophysical profile + non-stress test completed MASSIMO [address], [place], [address], 07/28/2022 09:42:05 07/20/2022 non-stress test completed todd Yu [address], [place], [address], 07/20/2022 15:30:37 07/29/2022 non-stress test completed royal [facility] [address], [place], [address], 07/29/2022 11:06:50 07/29/2022 US, obstetric, biophysical profile completed [email or web address] [facility] [address], [place], [address], 07/29/2022 20:06:55 07/29/2022 US, obstetric, biophysical profile completed [email or web address] [address] [address], [place], [address], 07/29/2022 20:06:56 08/05/2022 [facility]-stress test [facility], [place], [address], 08/05/2022 11:43:07 08/05/2022 US, obstetric, follow-up completed [email or web address] [address] [address], [place], [address], 08/05/2022 11:51:05 08/05/2022 US, obstetric, biophysical profile + non-stress test [facility] [address], [place], [address], 08/05/2022 13:34:43 08/05/2022 US, obstetric, transvaginal completed [email or web address] [facility] [address], [place], [address], 08/05/2022 13:34:34 08/12/2022 US, obstetric, follow-up completed [email or web address], [place], [address], 08/15/2022 10:48:18 08/12/2022 US, obstetric, biophysical profile + non-stress test [facility] [place] [address] [address], [place], [address], 08/12/2022 11:17:35 08/12/2022 non-stress test [facility] [address], [place], [address], 08/12/2022 11:38:55 08/12/2022 US, obstetric, follow-up completed MASSIMO [address], [place], [address], 08/22/2022 08:58:53 08/17/2022 US, obstetric, biophysical profile + non-stress test completed [address], [place], [address], 08/17/2022 12:08:11 08/17/2022 non-stress test [email or web address] [place] [address] [address], [place], [address], 08/17/2022 12:11:50 08/17/2022 US, obstetric, biophysical profile + non-stress test completed [email or web address] [address] [address], [place], [address], 08/18/2022 09:47:22 12/13/2023 MAMMO, screening, bilateral completed [facility] [address], [place], [address], 12/13/2023 12:30:28 03/06/2024 [facility], [place], [address], 03/06/2024 17:29:50 03/06/2024 US, transvaginal completed coy [email or web address] [address], [place], [address], 03/06/2024 17:30:03 03/06/2024 US, pelvis completed MASSIMO Chioma [address], [place], [address], 03/06/2024 11:35:41 Procedure Notes None recorded. Medical Equipment None Reported. Allergies No known drug allergies Medications Name Sig Start Date Stop Date Status Note LastModified by Organization Details LastModified Time amoxicillin 500 mg capsule TAKE 2 CAPSULES BY MOUTH TWICE DAILY FOR 10 DAYS 07/07 completed Not Available Not Available Not Available clindamycin HCl 300 mg capsule TAKE 1 CAPSULE BY MOUTH TWICE DAILY 07/07 completed Not Available Not Available Not Available nystatin 100,000 unit/gram topical ointment APPLY TOPICALLY TO THE AFFECTED AREA TWICE DAILY 07/07 completed Not Available Not Available Not Available fluconazole 150 mg tablet TAKE 1 TABLET BY MOUTH NOW AND 1 TABLET IN 48 HOURS 07/07 completed Not Available Not Available Not Available nystatin-tr iamcinolone 100,000 unit/gram-0 .1 % topical ointment APPLY TO THE AFFECTED AREA(S) BY TOPICAL ROUTE 2 TIMES PER DAY 07/07 completed Not Available Not Available Not Available amoxicillin 875 mg tablet TAKE 1 TABLET BY MOUTH TWICE DAILY FOR 10 DAYS 07/07 completed Not Available Not Available Not Available meclizine 25 mg tablet TAKE 1 TABLET BY MOUTH TWICE DAILY 07/07 completed Not Available Not Available Not Available triamcinolo ne acetonide 0.1 % topical ointment 07/07 completed Not Available Not Available Not Available metformin ER 500 mg tablet,exte nded release 24 hr Take 1 tablet every day by oral route. active Not Available Not Available No t Available naproxen 500 mg tablet 07/07 completed Not Available Not Available Not Available escitalopra m 10 mg tablet TAKE 1 TABLET BY MOUTH DAILY 02/22 completed Not Available Not Available Not Available cyclobenzap rine 5 mg tablet TAKE 1 TABLET BY MOUTH EVERY 8 HOURS NEEDED FOR PAIN 01/25 completed Not Available Not Available Not Available butalbital- acetaminoph en-caffeine 50 mg-300 mg-40 mg capsule Take 2 capsules every 8 hours by oral route. 01/25 completed Not Available Not Available Not Available OneTouch Verio test strips 01/25 completed Not Available Not Available Not Available OneTouch Verio Flex Meter 01/25 completed Not Available Not Available Not Available OneTouch Delica Plus Lancet 33 gauge 01/25 completed Not Available Not Available Not Available Vitals Date Recorded Body height Body mass index (BMI) Body weight Systolic blood pressure Diastolic blood pressure Provider Name and Address Organization Details Last Updated DateTime 08/17/2022 170.18 cm 35.1 kg/m2 812906.6 9088 g 141 mm[Hg] 82 mm[Hg] Rozina Nguyen [facility] 3 12:14:04 Date Recorded Body height Body mass index (BMI) Body weight Systolic blood pressure Diastolic blood pressure Provider Name and Address Organization Details Last Updated DateTime 01/25/2023 170.18 cm 31.6 kg/m2 66551.66 g 131 mm[Hg] 89 mm[Hg] Rozina Nguyen [facility] 3 18:25:49 Date Recorded Body height Body mass index (BMI) Body weight Systolic blood pressure Diastolic blood pressure Provider Name and Address Organization Details Last Updated DateTime 07/07/2023 170.18 cm 31.3 kg/m2 36072.47 g 115 mm[Hg] 79 mm[Hg] Rozina Nguyen [facility] 4 11:14:27 Date Recorded Body height Body mass index (BMI) Body weight Systolic blood pressure Diastolic blood pressure Provider Name and Address Organization Details Last Updated DateTime 02/23/2024 170.18 cm 32 kg/m2 64409.84 g 110 mm[Hg] 76 mm[Hg] Rozina Nguyen [facility] 4 11:26:16 Social History Question Answer Notes LastModified by Organizat ion Details LastModified Time Tobacco Smoking Status Never Smoker Juliet Díaz [facility] 08/17/2022 11:13:58 What Is Your Level Of Alcohol Consumption? None [email or web address] Information not available 06/10/2022 If You Are , What Was Your Level Of Alcohol Consumption Prior To ? Occasional Information not available 08/17/2022 Are You Blind Or Do You Have Difficulty Seeing? No [email or web address] Information not available 06/10/2022 What Is Your Level Of Caffeine Consumption? Occasional [email or web address] Information not available 06/10/2022 How Much Tobacco Do You Chew? None [email or web address] Information not available 06/10/2022 In The 14 Days Before Symptom Onset, Have You Had Close Contact With A Laboratory-confir med COVID-19 While That Case Was Ill? No [email or web address] Information not available 06/10/2022 In The 14 Days Before Symptom Onset, Have You Had Close Contact With A Person Who Is Under Investigation For COVID-19 While That Person Was Ill? No [email or web address] Information not available 06/10/2022 Have You Been To An Area Known To Be High Risk For COVID-19? No [email or web address] Information not available 06/10/2022 Are You Deaf Or Do You Have Serious Difficulty Hearing? No [email or web address] Information not available 06/10/2022 What Type Of Diet Are You Following? REGULAR [email or web address] Information not available 06/10/2022 What Is The Highest Grade Or Level Of School You Have Completed Or The Highest Degree You Have Received? [id number] [email or web address] Information not available 06/10/2022 What Is Your Occupation? Stay At Home Mom [email or web address] Information not available 06/10/2022 Are There Any Guns Present In Your Home? No Information not available 06/10/2022 Do You Use Protection During Sex? No [email or web address] Information not available 06/10/2022 Do You Use Your Seat Belt Or Car Seat Routinely? Yes [email or web address] Information not available 06/10/2022 Do You Have Smoke And Carbon Monoxide Detectors In Your Home? Yes Information not available 06/10/2022 How Much Tobacco Do You Smoke? No [email or web address] Information not available 06/10/2022 Do You Feel Stressed (tense, Restless, Nervous, Or Anxious, Or Unable To Sleep At Night)? [id number] [email or web address] Information not available 06/10/2022 Do You Use Any Illicit Or Recreational Drugs? No [email or web address] Information not available 06/10/2022 Do You Use Sunscreen Routinely? No Information not available 06/10/2022 Has Tobacco Cessation Counseling Been Provided? No [email or web address] Information not available 08/17/2022 Have You Used IV Drugs? No [email or web address] Information not available 06/10/2022 Do You Or Have You Ever Used Any Other Forms Of Tobacco Or Nicotine? No [email or web address] Information not available 08/17/2022 Sex: Unknown Functional Status Question Answer Note LastModified by Organizat ion Details LastModified Time Do you have difficulty walking or climbing stairs? No [email or web address] Information not available 08/17/2022 Are you able to walk? YESWOREST [email or web address] Information not available 06/10/2022 Are you able to care for yourself? Yes [email or web address] Information not available 08/17/2022 Do you have difficulty dressing or bathing? No [email or web address] Information not available 08/17/2022 What is your exercise level? Occasional [email or web address] Information not available 06/10/2022 Mental Status None recorded. Family History Relationship Description Onset Age of this Age Resolved Age Notes LastModified by Organization Details LastModified Time Father No current problems or disability [email or web address] Not available 09/2022 12:14:14 Father Malignant tumor of pancreas [email or web address] Not available 08/17 12:14:14 Mother No current problems or disability [email or web address] Not available 09/2022 12:14:14 Mother Malignant tumor of breast [email or web address] Not available 08/17 12:14:14 Medical History Condition Response Allergies (Food, seasonal, environmental ) N Other N Drug/Latex Allergies/Reactions N Blood Transfusion N Breast Cancer N Dermatologic Disorders N Lung Disease N Defects or Inherited Disease N Breast Problem N Gestational Diabetes N Hematologic disorders N Anesthesia Complications N History of STI N Deep Vein Thrombosis N Polycystic ovary syndrome N Anxiety Disorder Y Autoimmune disease N Arthritis N Polyps N Infertility N Acid Reflux (GERD) N History of abnormal pap N Cancer N Varicosities N Stroke N Neurologic/Epilepsy N Endometriosis N High Cholesterol N Fibromyalgia N Headaches Y Kidney Disease N Heart Problems N Thyroid Problems N Kidney or Bladder Problems N GI Problems N Eating Disorder N Anemia N Art (IVF or FET) N Psychiatric Illness N Ovarian Cancer N Diabetes N Pulmonary (TB, Asthma) N Hepatitis/Liver Disease N No Past Medical History Y Eczema N Urinary Tract Infection N Abuse/Domestic Violence N Asthma N Trauma/Violence N Depression/ depression Y Heart Disease N Pre-Eclampsia N Hypertension Y Osteoporosis N Thrombophilias N Gynecological History Statement/Question Response Date of Last Mammogram Date of LMP 02/02/2024 On BCP's at Conception? N N Was last menstrual period normal Y STIs/STDs N HPV Vaccine Y Current Control Method None Age at First Child 24 Sexually Active? Y Date of DEXA bone scan Date of Last Pap Smear 07/07/2023 Sexual Problems? N LMP Approximate N Obstetrics History GPAL:G 3 P 3 0 0 3 Type Value Full Term 3 Living 3 Total 3 Past Encounters Encounter ID Performer Location Encounter Start Date Encounter Closed Date Diagnosis/Indication Diagnosis SNOMED-CT Code Diagnosis ICD10 Code Diagnosis Note [id number] Olivia Block [facility] [address],[facility] [place] [address] 06/10/2022 11:59:12 06/10/2022 14:18:34 Routine care 337951700 Z34.92 Venereal d isease screening 070599055 Z11.3 [id number] Radha Arvizu [facility] [address],[facility] [place] [address] 06/17/2022 12:19:38 06/17/2022 13:25:00 Placental condition affecting management of mother 145575846 O43.92 Z3A.27 [id number] [facility] [address],[facility] [place] [address] 06/24/2022 10:32:42 06/24/2022 11:54:39 Routine care 061246338 Z34.92 [id number] [facility] [address],[place] [address] 07/08/2022 14:15:11 07/08/2022 15:52:47 Low lying placenta 579768638 O44.43 Z3A.30 [id number] [facility] [address],[place] [address] 07/08/2022 14:15:24 07/08/2022 16:52:28 Routine care 006818391 Z34.92 [id number] Emi Kimo [facility] [address],[place] [address] 07/19/2022 11:57:08 07/19/2022 15:09:56 Gestational diabetes mellitus class A1 57172900 O24.410 Called pt to complete diet teaching via phone per pts request. Went over ideal ranges for FBS and pp BS. Went over carb counting and carb ranges for each meal/snack . Gave ideas for foods to eat for meals/snac ks. Discussed drink options and to avoid soda and juice as pt likes to drink coca-cola. Told pt she can go online to ADA for meal options or to look up low carb meal recipes online for ideas as well. Pt states she like edible cookie dough right now. Told pt to look into keto ice cream for an alternativ e to this. Pt picked up glucometer last night and fasting level and breakfast were both normal. Told pt to continue checking BS QID and adjusting diet to follow low carb diet to try to keep BS within normal range. Pt aware if sugars aren't controlled by diet we would discuss starting insulin. Went over NST schedule with pt and importance of keeping these appts and checking BS for her and baby's health. Pts questions were answered and pt verbalized understand ing. KIRSTY hernandez [id number] Ambar Mccoy [facility] [address],[place] [address] 07/20/2022 11:30:01 07/20/2022 15:28:40 Gestational diabetes mellitus class A1 37016948 O24.410 Z3A.31 [id number] [facility] [address],[place] [address] 07/20/2022 11:30:19 07/20/2022 13:12:16 Gestational diabetes mellitus 94246219 O24.410 Z3A.31 [id number] Olivia Block [facility] [address],[place] [address] 07/20/2022 11:30:36 07/20/2022 13:41:19 Routine care 168296247 Z34.92 [id number] [facility] [address],[place] [address] 07/29/2022 10:23:43 07/29/2022 11:12:36 Gestational diabetes mellitus 21901583 O24.[id number] [facility] [address],[place] [address] 07/29/2022 10:24:04 07/29/2022 11:43:13 Gestational diabetes mellitus class A1 57021580 O24.410 Z3A.31 [id number] Olivia Block [facility] [address],[place] [address] 07/29/2022 10:24:18 07/29/2022 12:47:17 Routine care 375437704 Z34.92 [id number] Radha [facility] [address],[place] [address] 08/05/2022 10:27:30 08/05/2022 13:35:42 Gestational diabetes mellitus class A1 68234232 O24.410 O44.40 Z3A.34 [id number] [facility] [address],[place] [address] 08/05/2022 10:31:17 08/05/2022 11:50:28 Gestational diabetes mellitus 19639277 O24.410 Z3A.31 [id number] Olivia Block [facility] [address],[place] [address] 08/05/2022 10:31:47 08/05/2022 12:30:07 Routine care 116184366 Z34.92 [id number] [facility] [address],[place] [address] 08/12/2022 10:31:17 08/12/2022 11:04:57 Gestational diabetes mellitus complicating 4698984536 9106 O24.419 Z3A.35 [id number] [facility] [address],[place] [address] 08/12/2022 10:31:46 08/12/2022 12:01:15 Gestational diabetes mellitus 66892640 O24.410 Z3A.31 [id number] Eliot Montana MD [facility] [address],[place] [address] 08/12/2022 10:32:01 08/15/2022 12:13:01 Routine care 999164463 Z34.03 [id number] Merle Montero [facility] [address],[place] [address] 08/17/2022 11:12:28 08/17/2022 11:50:35 Gestational diabetes mellitus class A1 52416168 O24.410 Z3A.35 [id number] [facility] [address],[place] [address] 08/17/2022 11:13:24 08/17/2022 12:12:11 Gestational diabetes mellitus 87667527 O24.410 Z3A.31 [id number] Olivia Block CNM [facility] [address],[place] [address] 08/17/2022 11:13:50 08/17/2022 12:42:39 Routine care 370183040 Z34.92 [id number] Olivia Block CNM [facility] [address],[place] [address] 01/25/2023 17:51:42 01/26/2023 10:29:04 Yeast detected 857844447 R89.5 vulvar guidelines , culture sent f/u wwe [id number] Olivia Block CNM [facility] [address],[facility] [place] [address] 07/07/2023 10:58:56 07/07/2023 11:32:57 Gynecologic examination 86174590 Z01.419 [id number] Olivia Block [facility] [address],[place] [address] 02/23/2024 11:10:07 02/23/2024 11:47:21 Irregular periods 88023336 N92.6 await blood work, consider US, will call pt with results [id number] [facility] [address],[place] [address] 03/06/2024 09:51:35 03/06/2024 10:20:07 Irregular periods 48782191 N92.6 Health Concerns Section Related Observation LastModified by Organization Detai ls LastModified Time None Recorded Concern Status LastModified by Organization Details LastModified Time None Recorded Advance Directives Directive None Recorded Payers Encounter Date Sequence Insurance Name Policy Number Policy Laureano Covered Member ID Laureano Member ID Guarantor Name 08/17/2022 1 [facility] ON OR AFTER 11/12/20 (MEDICAID REPLACEMENT - HMO) Shirlene Johnson [id number] Shirlene Johnson 01/25/2023 1 [facility] ON OR AFTER 11/12/20 (MEDICAID REPLACEMENT - HMO) Shirlene Johnson [id number] Shirlene Johnson 07/07/2023 1 [facility] ON OR AFTER 11/12/20 (MEDICAID REPLACEMENT - HMO) Shirlene Johnson [id number] Shirlene Johnson 02/23/2024 1 [facility] ON OR AFTER 11/12/20 (MEDICAID REPLACEMENT - HMO) Shirlene Johnson [id number] Shirlene Johnson 03/06/2024 1 [facility] ON OR AFTER 11/12/20 (MEDICAID REPLACEMENT - HMO) Shirlene Johnson [id number] Shirlene oJhnson Notes Date Note Type Note Provider Name and Address Organization Details Recorded Time 01/25/2023 text/html Vaginal/Vulvar ProblemReported bypatient.Notes:itch ing burning inside and outside, some odor, increase in yellow d/c, leaving on vacation tomorrow Olivia Block CNM [address], [place], [address], [facility] 01/25/2023 20:14:12 07/07/2023 text/html Annual GYNReport ed bypatient.History:no gynecologic complaints Menstrual cycle:Normal menses Urinary symptoms:No hematuria; No incontinence Vulva:No genital lesion Vagina:Normal vaginal discharge Breast:No breast pain; No breast lump; No nipple discharge Sexual complaints:No sexual complaints; No pain during intercourse; Normal libido Menopausal Symptoms:No menopausal symptoms; Normal vaginal lubrication Psychological symptoms:No depression; No anxiety; No PMDD Preventive measures:Encourage self breast examination; Encourage regular exercise; Encourage no tobacco useNotes:pts mom breast ca age 42 will start yearly screening now, declines bcm Olivia Block CNM [address], [place], [address], [facility] 07/07/2023 11:32:50 02/23/2024 text/html cycles normally very regular, on time, last couple dayslast couple months 8-9 days early, bleeding lasting longer, no increase in crampingno bcm currently, neg UPT today Olivia Block CNM [address], [place], [address], [facility] 02/23/2024 11:40:28 OBGyn Episode Ob Episode Information Episode Created Date Number of Fetuses Patient Bloodtype Patient rh Status Prepregnancy Weight lbs Domestic Partner Domestic Partner Phone Father Name Chemistry Associate Status 06/10/19 23 1 A Negative Bang CLOSED Fetus Data First Name Last Name Admitted to NICU Weight (g) Sex Living Outcome Pediatric Complications Fetus ID Race Codes Race Delivery Type 3203.49 35 M [id number] Vaginal Delivery Problems Problem Notes STD WNL/UC WNL/FAILED 1 HRaw ait records for review Problem Name Start Date End Date Resolution Snomed Code Not e Gestational diabetes mellitus 34124943 bs QID , vaishali jose luis testing 32wks -induced hypertension 52107834 waiting on 24 h r urine plan 37 week IOL RhD negative 572208187 Rhogam received 06/26/22 Low lying placenta 957448705 M arginal previa - RESOLVED Migraine 11765710 history of Past history of gestational hypertension 025193997 delivered last baby @ 37wks, did not start ASA Cystic fibrosis 131959237 +CAR RIER - informed, FOB not tested Maldonado Calculation Initial Maldonado Date Initial Exam Date Initial Exam Provider Initial Ultrasound Date Last Menstrual Period Date Ultra Sound Weeks Gestation 09/15/2022 06/10/2022 12/09/2021 0 Eighteen To Twenty Week Maldonado Update Ultra Sound Date Fundal Height At Umbil Quickening Date Ultra Sound Latest Weeks Gestation Final Maldonado Confirmed By Final Maldonado Confirmed Date Final Maldonado Date Ultra Sound Latest Days Gestation 0 09/16/19 23 0 Pre- Flowsheet Flowsheet Date 06/10/2022 Alvarez Score Blood Edema Fundus Height Fundus Units Glucose Ketones Leukocytes Nitrite Labor Signs Protein Cervic Dilation Cervic Effacement Cervic Station neg none none trace Type Weight in lbs Pre/Post Dialysis Refused Weight 215.345182229246 BP Diastolic BP Location Tested BP Systolic BP Type 81 132 Fetus Heart Rate Present Fetus Movement A Yes Comments patient states that having s ome BH contractions. reviewed precautionsreviewed office, precautions and folder, 28 week lab order for GCT and rhogam givenLLP- rpt us next visitreviewed history, awaiting labs Flowsheet Date 06/17/2022 Alvarez Score Blood Edema Fundus Height Fundus Units Glucose Ketones Leukocytes Nitrite Labor Signs Protein Cervic Dilation Cervic Effacement Cervic Station Type Weight in lbs Pre/Post Dialysis Refused BP Diastolic BP Location Tested BP Systolic BP Type Fetus Heart Rate Present Fetus Movement Comments Flowsheet Date 06/24/2022 Alvarez Score Blood Edema Fundus Height Fundus Units Glucose Ketones Leukocytes Nitrite Labor Signs Protein Cervic Dilation Cervic Effacement Cervic Station neg none 29 none trace Type Weight in lbs Pre/Post Dialysis Refused Weight 218.773334290162 BP Diastolic BP Location Tested BP Systolic BP Type 76 116 Fetus Heart Rate Present A 145 Fetus Movement A Yes Comments back pain, rec support belt, ok for flexeril, pt to get TDAP, reviewed precautions, pelvic rest, f/u us in 2 weeks to check placental location Flowsheet Date 07/08/2022 Alvarez Score Blood Edema Fundus Height Fundus Units Glucose Ketones Leukocytes Nitrite Labor Signs Protein Cervic Dilation Cervic Effacement Cervic Station Type Weight in lbs Pre/Post Dialysis Refused BP Diastolic BP Location Tested BP Systolic BP Type Fetus Heart Rate Present Fetus Movement Comments Flowsheet Date 07/08/2022 Alvarez Score Blood Edema Fundus Height Fundus Units Glucose Ketones Leukocytes Nitrite Labor Signs Protein Cervic Dilation Cervic Effacement Cervic Station neg none none trace Type Weight in lbs Pre/Post Dialysis Refused Weight 218.444685610130 BP Diastolic BP Location Tested BP Systolic BP Type 80 130 Fetus Heart Rate Present Fetus Movement A Yes Comments patient states that having s ome contractions. LLP 13.8mm, will recheck in 2 weeks, EFw 52%, planning tdap, precautions reviewed f/u 2 weeks Flowsheet Date 07/19/2022 Alvarez Score Blood Edema Fundus Height Fundus Units Glucose Ketones Leukocytes Nitrite Labor Signs Protein Cervic Dilation Cervic Effacement Cervic Station Type Weight in lbs Pre/Post Dialysis Refused BP Diastolic BP Location Tested BP Systolic BP Type Fetus Heart Rate Present Fetus Movement Comments Flowsheet Date 07/20/2022 Alvarez Score Blood Edema Fundus Height Fundus Units Glucose Ketones Leukocytes Nitrite Labor Signs Protein Cervic Dilation Cervic Effacement Cervic Station Type Weight in lbs Pre/Post Dialysis Refused BP Diastolic BP Location Tested BP Systolic BP Type Fetus Heart Rate Present Fetus Movement Comments Flowsheet Date 07/20/2022 Alvarez Score Blood Edema Fundus Height Fundus Units Glucose Ketones Leukocytes Nitrite Labor Signs Protein Cervic Dilation Cervic Effacement Cervic Station Type Weight in lbs Pre/Post Dialysis Refused BP Diastolic BP Location Tested BP Systolic BP Type Fetus Heart Rate Present Fetus Movement Comments Flowsheet Date 07/20/2022 Alvarez Score Blood Edema Fundus Height Fundus Units Glucose Ketones Leukocytes Nitrite Labor Signs Protein Cervic Dilation Cervic Effacement Cervic Station neg none none trace Type Weight in lbs Pre/Post Dialysis Refused Weight 222.82453605325 BP Diastolic BP Location Tested BP Systolic BP Type 84 130 Fetus Heart Rate Present Fetus Movement A Yes Comments discussed risks, diet vs ins ulin, reviewed 2 days of bs log, wnl, precautions reviewed nst and bpp today check low lying placenta at next us Flowsheet Date 07/29/2022 Alvarez Score Blood Edema Fundus Height Fundus Units Glucose Ketones Leukocytes Nitrite Labor Signs Protein Cervic Dilation Cervic Effacement Cervic Station Type Weight in lbs Pre/Post Dialysis Refused BP Diastolic BP Location Tested BP Systolic BP Type Fetus Heart Rate Present Fetus Movement Comments Flowsheet Date 07/29/2022 Alvarez Score Blood Edema Fundus Height Fundus Units Glucose Ketones Leukocytes Nitrite Labor Signs Protein Cervic Dilation Cervic Effacement Cervic Station Type Weight in lbs Pre/Post Dialysis Refused BP Diastolic BP Location Tested BP Systolic BP Type Fetus Heart Rate Present Fetus Movement Comments Flowsheet Date 07/29/2022 Alvarez Score Blood Edema Fundus Height Fundus Units Glucose Ketones Leukocytes Nitrite Labor Signs Protein Cervic Dilation Cervic Effacement Cervic Station neg none none trace Type Weight in lbs Pre/Post Dialysis Refused Weight 224.031260022095 BP Diastolic BP Location Tested BP Systolic BP Type 78 118 Fetus Heart Rate Present Fetus Movement A Yes Comments bpp 8/8, doing well all bloo d sugars wnl, plan to meet dr. [place], precautions reviewed. schedule preadmit appt Flowsheet Date 08/05/2022 Alvarez Score Blood Edema Fundus Height Fundus Units Glucose Ketones Leukocytes Nitrite Labor Signs Protein Cervic Dilation Cervic Effacement Cervic Station Type Weight in lbs Pre/Post Dialysis Refused BP Diastolic BP Location Tested BP Systolic BP Type Fetus Heart Rate Present Fetus Movement Comments Flowsheet Date 08/05/2022 Alvarez Score Blood Edema Fundus Height Fundus Units Glucose Ketones Leukocytes Nitrite Labor Signs Protein Cervic Dilation Cervic Effacement Cervic Station Type Weight in lbs Pre/Post Dialysis Refused BP Diastolic BP Location Tested BP Systolic BP Type Fetus Heart Rate Present Fetus Movement Comments Flowsheet Date 08/05/2022 Alvarez Score Blood Edema Fundus Height Fundus Units Glucose Ketones Leukocytes Nitrite Labor Signs Protein Cervic Dilation Cervic Effacement Cervic Station Type Weight in lbs Pre/Post Dialysis Refused Weight 224.821985156106 BP Diastolic BP Location Tested BP Systolic BP Type 85 139 Fetus Heart Rate Present Fetus Movement Comments will talk to dr. [place] next w [place] about external version if still breech, [place] breech today, posterior placenta, no longer low lying, BPP 8/8, call for preadmission, precautions reviewed, review blood sugar log with RN, forgot log Flowsheet Date 08/12/2022 Alvarez Score Blood Edema Fundus Height Fundus Units Glucose Ketones Leukocytes Nitrite Labor Signs Protein Cervic Dilation Cervic Effacement Cervic Station Type Weight in lbs Pre/Post Dialysis Refused BP Diastolic BP Location Tested BP Systolic BP Type Fetus Heart Rate Present Fetus Movement Comments Flowsheet Date 08/12/2022 Alvarez Score Blood Edema Fundus Height Fundus Units Glucose Ketones Leukocytes Nitrite Labor Signs Protein Cervic Dilation Cervic Effacement Cervic Station Type Weight in lbs Pre/Post Dialysis Refused BP Diastolic BP Location Tested BP Systolic BP Type Fetus Heart Rate Present Fetus Movement Comments Flowsheet Date 08/12/2022 Alvarez Score Blood Edema Fundus Height Fundus Units Glucose Ketones Leukocytes Nitrite Labor Signs Protein Cervic Dilation Cervic Effacement Cervic Station 35 Type Weight in lbs Pre/Post Dialysis Refused Weight 226.405411268737 BP Diastolic BP Location Tested BP Systolic BP Type 76 R arm 124 sitting Fetus Heart Rate Present A 145 Fetus Movement Comments No complaints, no problems, routine care, good blood sugar control, no headaches Flowsheet Date 08/17/2022 Alvarez Score Blood Edema Fundus Height Fundus Units Glucose Ketones Leukocytes Nitrite Labor Signs Protein Cervic Dilation Cervic Effacement Cervic Station Type Weight in lbs Pre/Post Dialysis Refused BP Diastolic BP Location Tested BP Systolic BP Type Fetus Heart Rate Present Fetus Movement Comments Flowsheet Date 08/17/2022 Alvarez Score Blood Edema Fundus Height Fundus Units Glucose Ketones Leukocytes Nitrite Labor Signs Protein Cervic Dilation Cervic Effacement Cervic Station Type Weight in lbs Pre/Post Dialysis Refused BP Diastolic BP Location Tested BP Systolic BP Type Fetus Heart Rate Present Fetus Movement Comments Flowsheet Date 08/17/2022 Alvarez Score Blood Edema Fundus Height Fundus Units Glucose Ketones Leukocytes Nitrite Labor Signs Protein Cervic Dilation Cervic Effacement Cervic Station neg trace none trace 2cm 60% -2 Type Weight in lbs Pre/Post Dialysis Refused Weight 224.299359976150 BP Diastolic BP Location Tested BP Systolic BP Type 82 141 Fetus Heart Rate Present Fetus Movement A Yes Comments patient states that having s ome contractions, discharge, swelling, nausea and vomiting. bpp 8/8 mild fields, resolved last night with fioricet, doing 24 hr urine, ok to take tylenol, iol scheduled, any changes to LD for observation. gdm- diet sugars wnl Menstrual History Last Menstrual Date Menses Monthly On Bcp Conception Prior Menses Frequency Hcg Plus Date Menarche Onset Age 0712/09/2021 Genetic Screening And Infection History Question Response Note Mental Retardation/Autism false Patient's Age Will Be 35 Years Or Older At Estim ated Date of Delivery false Thalassemia (Romansh, Salvadorean, Mediterranean, Or Background): MCV < 80 false Neural Tube Defect (Meningomyelocele, Spina Bifi da, Or Anencephaly) false Congenital Heart Defect false Down Syndrome false Shaan-Sachs (eg, Church, Cajun, Indonesian-[place]) f alse Riana Disease false Sickle Cell Disease Or Trait () false Hemophilia Or Other Blood Disorders false Muscular Dystrophy false Cystic Fibrosis false [place] false Intellectual Disability/Autism false If Yes, Was Person Tested For Fragile X? false Other Inherited Genetic Or Chromosomal Disorder false Maternal Metabolic Disorder (eg, Type 1 Diabetes , PKU) false Patient Or Baby's Father Had A Child With Defects Not Listed Above false Recurrent Loss, Or A Stillbirth false Medications (including Suppl ements, Vitamins, Herbs, OTC Drugs), Illicit/Recreational Drugs, Alcohol true PNV If Yes, Agent(s) And Strength/Dosage false Any Other Genetic History false Live With Someone With TB Or Exposed To TB false Patient Or Partner Has History Of Genital Herpes false Rash Or Viral Illness Since Last Menstrual Perio d false History Of STD, Gonorrhea, Chlamydia, HPV, Syphi lis false Other Infection History false History of HIV false History of Hepatitis false Prior GBS-infected child false Hemoglobinopathy Or Carrier false Other Structural Defect false Recent Travel History Outside of Country false Delivery Information Delivery Date Delivery Type Labor Anesthesia Weeks Gestation Incision Type Labor Labor Length Hrs Delivered By Post Complications Tubal Sterilization Discharge Date Comments 3 Induce d 37.1 false Olivia Block CHARLA GDM & GHTN Discharge Information Feeding Method Contraceptive Method Maternal HG B and HCT Levels Ob Episode Information Episode Created Date Number of Fetuses Patient Bloodtype Patient rh Status Prepregnancy Weight lbs Domestic Partner Domestic Partner Phone Father Name Chemistry Associate Status 06/10/19 23 1 CLOSED Fetus Data First Name Last Name Admitted to NICU Weight (g) Sex Living Outcome Pediatric Complications Fetus ID Race Codes Race Delivery Type 3543.46 [id number] M Full Term [id number] Vaginal Delivery Maldonado Calculation Initial Maldonado Date Initial Exam Date Initial Exam Provider Initial Ultrasound Date Last Menstrual Period Date Ultra Sound Weeks Gestation 0 Eighteen To Twenty Week Maldonado Update Ultra Sound Date Fundal Height At Umbil Quickening Date Ultra Sound Latest Weeks Gestation Final Maldon[place] Confirmed By Final Maldonado Confirmed Date Final Maldonado Date Ultra Sound Latest Days Gestation 0 0 Menstrual History Last Menstrual Date Menses Monthly On Bcp Conception Prior Menses Frequency Hcg Plus Date Menarche Onset Age Delivery Information Delivery Date Delivery Type Labor Anesthesia Weeks Gestation Incision Type Labor Labor Length Hrs Delivered By Post Complications Tubal Sterilization Discharge Date Comments 5 40 Discharge Information Feeding Method Contraceptive Method Maternal HG B and HCT Levels Ob Episode Information Episode Created Date Number of Fetuses Patient Bloodtype Patient rh Status Prepregnancy Weight lbs Domestic Partner Domestic Partner Phone Father Name Chemistry Associate Status 06/10/19 23 1 CLOSED Fetus Data First Name Last Name Admitted to NICU Weight (g) Sex Living Outcome Pediatric Complications Fetus ID Race Codes Race Delivery Type [id number] F Full Term [id number] Vaginal Delivery Maldonado Calculation Initial Maldonado Date Initial Exam Date Initial Exam Provider Initial Ultrasound Date Last Menstrual Period Date Ultra Sound Weeks Gestation 0 Eighteen To Twenty Week Maldonado Update Ultra Sound Date Fundal Height At Umbil Quickening Date Ultra Sound Latest Weeks Gestation Final Maldonado Confirmed By Final Maldonado Confirmed Date Final Maldonado Date Ultra Sound Latest Days Gestation 0 0 Menstrual History Last Menstrual Date Menses Monthly On Bcp Conception Prior Menses Frequency Hcg Plus Date Menarche Onset Age Delivery Information Delivery Date Delivery Type Labor Anesthesia Weeks Gestation Incision Type Labor Labor Length Hrs Delivered By Post Complications Tubal Sterilization Discharge Date Comments 1 37 GHTN Discharge Information Feeding Method Contraceptive Method Maternal HG B and HCT Levels
--- OUTSIDE RECORDS SUMMARY | 2024-07-23 18:08 | XMS_ITS | Data Portability ---
Author Organization [email or web address] , [facility] Address [address] [place] [address] Assessment No assessment recorded. Plan of Treatment Reminders Order Date Submit Date Provider Last Modified By Organization Details Last Modified Time Details Appointments None recorded. Lab genetic screen, unspecifi ed specimen 2021 [email or web address] Viv, [address] [facility], [place], [address], 3 02:09:21 aneuploid y risk, chromosom e specific circulati ng cell free (ccf) DNA, maternal serum 2021 [employer]ennifer, [address], [place], [address], 3 01:30:56 afp (alpha-fe toprotein ) panel, maternal screen, serum 2021 [employer] [facility], [address], [place], [address], 3 22:36:21 unlisted lab - hemoglobi n A1C 2021 [email or web address] Charlotte Popeye, [address] [place], [address], 3 15:38:15 culture, urine 2021 [employer] [facility], [address], [facility] [address], [place], [address], 3 22:36:23 varicella -zoster igg Ab screen, serum 2021 [employer] [facility], [address], [address], [place], [address], 3 22:36:20 hemoglobi nopathy profile, blood 2021 [employer] [facility], [address], [address], [place], [address], 3 22:36:21 antibody screen, serum or plasma 2021 [employer] [facility], [address] [place], [address], 3 22:36:22 abo group + rh type, blood 2021 [employer] [facility], [address] [place], [address], 3 22:36:22 CBC w/ auto diff 2021 [facility] Popeye, [address] [place], [address], 3 12:36:37 CT + NG DNA, PCR, unspecifi ed specimen 2021 [facility] Popeye, [address] [place], [address], 2 15:31:44 obstetric screen + HIV, serum or blood 2021 D[employer]PATCH_[email or web address] [id number] Charlotte Popeye, [address] [place], [address], 3 03:39:13 test, urine 2021 layla Zavala_juan, [address] [place], [address], 2 10:20:33 unlisted lab - hemoglobi n A1C 2021 [employer] Charlotte Pol, [address] [place], [address], 14:21:24 culture, urine 2021 [employer] [facility], [address], [address], [place], [address], 14:21:24 varicella -zoster igg Ab screen, serum 2021 [employer] [facility], [address], [address], [place], [address], 14:21:24 hemoglobi nopathy profile, blood 2021 [employer] [facility], [address], [address], [place], [address], 14:21:24 antibody screen, serum or plasma 2021 [employer] [facility], [address] [place], [address], 14:21:24 abo group + rh type, blood 2021 [employer] [facility], [address] [place], [address], 14:21:25 CBC w/ auto diff 2021 [employer] [place] [facility], [address] [place] [address], [address], 14:21:25 CT + NG DNA, PCR, unspecifi ed specimen 2021 [employer] Charlotte Pol, [address] [place] [address], [address], 14:21:25 drug of abuse panel, urine 2021 DBA[employer]PATCH_[email or web address] [id number] [facility], [address] [place] [address], [address], 3 03:39:11 obstetric screen + HIV, serum or blood 2021 [employer]PATCH_2 [id number] [facility], [address] [place], [address], 3 03:39:11 Referral None recorded. Procedures None recorded. Surgeries None recorded. Imaging US, obstetric , maternal evaluatio n + anatomy 2021 MASSIMO [facility], [address] [place], [address], 23:26:24 US, transvagi nal 2021 huber Not available 18:13:49 Medication Orders None recorded. Patient TargetsNo targets recorded. Patient InstructionsNo instructions recorded. Reason for Referral None Reported. Results Created Date Observation Date Name Description Value Unit Range Abnormal Flag Note LastModifiedBy Organization Detail LastModifiedTime 05/24/1905/24/2022 [UNIT Y] ANEUP LOIDY NIPT fraction 6.4% normal Not Available [employer] [address] [facility], [place], [address], 05/24/2022 01:30:56 05/24/19 23 05/24/2022 [UNIT Y] ANEUP LOIDY NIPT sex chromosome aneuploidy NOT DETECT ED normal Not Available [facility] [address] [facility], [place], [address], 05/24/2022 01:30:56 05/24/19 23 05/24/2022 [UNIT Y] ANEUP LOIDY NIPT monosomy X LOW RISK <1 in 10,000 normal Not Available [employer] [address] , [place], [address], 05/24/2022 01:30:56 05/24/19 23 05/24/2022 [UNIT Y] ANEUP LOIDY NIPT trisomy 13 LOW RISK <1 in 10,000 normal Not Available [employer] [address] [facility], [place], [address], 05/24/2022 01:30:56 05/24/19 23 05/24/2022 [UNIT Y] ANEUP LOIDY NIPT trisomy 18 LOW RISK <1 in 10,000 normal Not Available [employer] [address] [facility], [place], [address], 05/24/2022 01:30:56 05/24/19 23 05/24/2022 [UNIT Y] ANEUP LOIDY NIPT trisomy 21 LOW RISK <1 in 10,000 normal Not Available [facility] [facility], [place], [address], 05/24/2022 01:30:56 05/24/19 23 05/24/2022 [UNIT Y] ANEUP LOIDY NIPT gestation SINGLE TON normal Not Available [employer] [facility], [place], [address], 05/24/2022 01:30:56 05/24/19 23 05/24/2022 [UNIT Y] ANEUP LOIDY NIPT for detailed report, see pdf See PDF normal Not Available [employer] Clive [facility], [place], [address], 05/24/2022 01:30:56 06/02/19 23 06/02/2022 [UNIT Y] SHREE ER SCREE N fraction 4.7% normal Not Available [facility] [employer] [address] [facility], [place], [address], 06/02/2022 02:09:21 06/02/19 23 06/02/2022 [UNIT Y] SHREE ER SCREE N cystic fibrosis nipt result note abnormal sgNIP T concl uded the fetus is at incre ased risk to be homoz ygous for the c.152 1_152 3delC TT (p.Ph e508d el) patho genic varia nt in the CFTR gene. Not Available [employer] [address], [place], [address], 06/02/2022 02:09:21 06/02/19 23 06/02/2022 [UNIT Y] SHREE Ornelas cystic fibrosis nipt result INCREA SED RISK 1 in 19 abnormal Not Available [employer] [address], [place], [address], 06/02/2022 02:09:21 06/02/19 23 06/02/2022 [UNIT Y] SHREE Ornelas sickle cell disease/beta -thalassemia /hemoglobino pathies carrier screen NEGATI VE normal Not Available [employer] [address], [place], [address], 06/02/2022 02:09:21 06/02/19 23 06/02/2022 [UNIT Y] SHERE Ornelas alpha-thalas semia carrier screen NEGATI VE normal Not Available [facility] [address], [place], [address], 06/02/2022 02:09:21 06/02/19 23 06/02/2022 [UNIT Y] SHREE Ornelas cystic fibrosis carrier screen POSITI VE 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 Not Available [facility] [address], [place], [address], 06/02/2022 02:09:21 06/02/19 23 06/02/2022 [UNIT Y] SHREE Ornelas spinal muscular atrophy carrier screen NEGATI VE 2 SMN1 copies , SNP not presen t normal Not Available [employer] [address], [place], [address], 06/02/2022 02:09:21 06/02/19 23 06/02/2022 [UNIT Y] SHREE MARCANO Lyric for detailed report, see pdf See PDF normal Not Available Venessa mcfadden [address], [place], [address], 06/02/2022 02:09:21 04/12/20 22 04/12/2022 pregn bernard test, urine HCG positi ve Not Available [facility] [address] [place], [address], 04/12/2022 12:27:52 05/11/2005/12/2022 CT/NG chlamydia trachomatis CT neg negati ve normal This repor t is inten ded for us in clini aamir monit oring and manag ement of patie nts. It is not inten ded for use in medic al-le gal appli catio n. Not Available [address], [address], 05/12/2022 15:31:44 05/11/20 22 05/12/2022 CT/NG neisseria gonorrhoeae GC neg negati ve normal This repor t is inten ded for us in clini aamir monit oring and manag ement of patie nts. It is not inten ded for use in medic al-le gal appli catio n. Not Available [address], [address], 05/12/2022 15:31:44 05/11/20 22 05/20/2022 VARIC SUMMER ZOSTE R VIRUS ANTIB BENEDICTO (IGG) varicella zoster virus antibody (IgG) 179.00 index normal Index Inter preta tion ----- ---- ----- ----- ----- ----- -- <135. 00 Negat jean carlos - Antib benedicto not detec rell 135.0 0 - 164.9 9 Equiv ocal > or = 165.0 0 Posit jean carlos - Antib benedicto detec rell A posit jean carlos resul t indic ates that the patie nt has antib benedicto to VZV but does not diffe renti ate betwe en an activ e or past infec tion. The clini aamir diagn osis must be inter prete d in conju nctio n with the clini aamir signs and sympt oms of the patie nt. This assay relia emeterio measu res immun ity due to previ ous infec tion but may not be sensi tive enoug h to detec t antib odies induc ed by vacci natio n. Thus, a negat jean carlos resul t in a vacci nated indiv idual does not neces saril y indic ate susce ptibi lity to VZV infec tion. A more sensi tive test for vacci natio n-ind uced immun ity is Varic summer Zoste r Virus Antib benedicto Immun ity Jennifer ornelas, ACIF. Not Available [facility] [address] [address] [place], [address], 05/20/2022 22:36:20 05/11/20 22 05/20/2022 HEMOG LOBIN OPATH Y EVALU ATION red blood cell count TNP TEST NOT PERFO RMED The addit ional test reque sted canno t be perfo rmed due to eithe r the age or quant ity of speci men. Not Available [facility] [address] [address] [place], [address], 05/20/2022 22:36:21 05/11/20 22 05/20/2022 HEMOG LOBIN OPATH Y EVALU ATION hemoglobin A TNP TEST NOT PERFO RMED The addit ional test reque sted canno t be perfo rmed due to eithe r the age or quant ity of speci men. Not Available [facility] [address] [address] [place], [address], 05/20/2022 22:36:21 05/11/20 22 05/20/2022 MATER NAL SERUM AFP interpretati on: Jennifer ornelas negat jean carlos for open NTD. Not Available [facility] [address] [address] [place], [address], 05/20/2022 22:36:21 05/11/20 22 05/20/2022 MATER NAL SERUM AFP risk for ontd 1 [place] [address] Not Available [facility] [address], [address], 05/20/2022 22:36:21 05/11/20 22 05/20/2022 MATER NAL SERUM AFP AFP, serum 65.9 NG/mL Not Available [facility] [address], [address], 05/20/2022 22:36:21 05/11/20 22 05/20/2022 MATER NAL SERUM AFP AFP MOM 1.09 Not Available [employer] [address], [address], 05/20/2022 22:36:21 05/11/20 22 05/20/2022 MATER NAL SERUM AFP comments: This patie nt's SCOTT (prasanna mated date of ozzie riggins) was used to calcu late the gesta juan l age. The AFP test resul t indic ates that this patie nt is scree n negat jean carlos for open NTD. It shoul d be noted that agustín l test resul ts can never guara ntee the of a agustín l baby and that 2-3% of [facility] rns have some type of physi aamir or menta l defec t, many of which are undet ectab le throu gh any known prena jose luis diagn ostic techn ique. Not Available [facility] [address] [place] [address], [address], 05/20/2022 22:36:21 05/11/20 22 05/20/2022 MATER NAL SERUM AFP comment This is a scree darleen test, not a diagn ostic test. This risk asses sment repor t is based in part on demog raphi c data provi ded by the order ing physi matt. Pleas e notif y the labor atory promp tly if any data are incor rect. For arpit tance with recal culat ions, pleas e call your local [facility] . For arpit tance with inter preta tion of these resul ts, pleas e conta ct your Local [facility] elmira ic couns elor or call [phone]( [phone]). Inter preti ve Cutof fs Scree n Posit jean carlos for Open NTD: > or = 2.50 adjus rell MOM > or = 1.90 adjus rell MOM for insul in-de pende nt diabe tics > or = 4.00 adjus rell MOM for twins > or = 3.50 adjus rell MOM for twins insul in-de pende nt diabe tics > or = 4.50 adjus rell MOM for tripl ets For addit ional infor chris ruiz e refer to http: //[facility] yoel ornelas.que stdia gnost ics.c om/fa q/FAQ 74v1 (This link is being provi ded for infor manfred goins/ educodell montanezjuan l purpo ses only. ) Not Available [employer] [address] [place], [address], 05/20/2022 22:36:21 05/11/20 22 05/20/2022 MATER NAL SERUM AFP calc'd gestational age 21.9 weeks Not Available [employer] [address], [address], 05/20/2022 22:36:21 05/11/20 22 05/20/2022 MATER NAL SERUM AFP maternal weight 212 lbs Not Available [employer] [address] [place], [address], 05/20/2022 22:36:21 05/11/20 22 05/20/2022 MATER NAL SERUM AFP est'd date of delivery 2022 Not Available [employer] [address] [place], [address], 05/20/2022 22:36:21 05/11/20 22 05/20/2022 MATER NAL SERUM AFP scott determined by LMP Not Available [employer] [address] [place], [address], 05/20/2022 22:36:21 05/11/20 22 05/20/2022 MATER NAL SERUM AFP mother's ethnic origin CAUCAS LEWIS Not Available [address], [address], 05/20/2022 22:36:21 05/11/20 22 05/20/2022 MATER NAL SERUM AFP number of fetuses 1 Not Available [address], [address], 05/20/2022 22:36:21 05/11/20 22 05/20/2022 MATER NAL SERUM AFP insulin depend diabetic NO Not Available [address], [address], 05/20/2022 22:36:21 05/11/20 22 05/20/2022 MATER NAL SERUM AFP repeat specimen NO Not Available [address], [address], 05/20/2022 22:36:21 05/11/20 22 05/20/2022 MATER NAL SERUM AFP Hx of neural tube defects NO Not Available [address], [address], 05/20/2022 22:36:21 05/11/20 22 05/20/2022 MATER NAL SERUM AFP prev down synd NO Not Available [address], [address], 05/20/2022 22:36:21 05/11/20 22 05/20/2022 MATER NAL SERUM AFP donor egg NOT GIVEN Not Available [address], [address], 05/20/2022 22:36:21 05/11/20 22 05/20/2022 MATER NAL SERUM AFP donor age: egg retrieval NOT GIVEN Not Available [address] [address] [place], [address], 05/20/2022 22:36:21 05/11/20 22 05/20/2022 ANTIB BENEDICTO SCREE N, RBC W/REF L ID, TITER AND AG antibody screen, RBC w/refl id, titer and Ag NO ANTIBO DIES DETECT ED normal Refer ence range No antib odies detec rell This assay is a scree darleen test for the detec tion of red blood cell antib odies . The test is not to be used for pretr ansfu umm scree darleen or for the medic al manag ement of an alloi mmuni zed pregn bernard. Not Available [address], [address], 05/20/2022 22:36:22 05/11/20 22 05/20/2022 ABO GROUP AND RH TYPE ABO group A Not Available [address] [place], [address], 05/20/2022 22:36:22 05/11/20 22 05/20/2022 ABO GROUP AND RH TYPE Rh type RH(D) NEGATI VE For addit ional infor chris ruiz e refer to http: //[facility] yoel ornelas.Que stDia gnost ics.c om/fa q/FAQ 111 (This link is being provi ded for infor manfred goins/ hayde matthews purpo ses only. ) Not Available [address] [place], [address], 05/20/2022 22:36:22 05/11/20 22 05/20/2022 CULTU RE, URINE , ROUTI NE culture, urine, routine SEE NOTE CULTU RE, URINE , ROUTI NE Micro Numbe r: [id number] Test Statu s: Final Speci men Sourc e: Urine Speci men Quali ty: Adequ ate Resul t: Mixed genit al tramaine isola rell. These super ficia l bacte paulino are not indic ative of a urina ry tract infec tion. No furth er organ ism ident ifica tion is elizabethodell nted on this speci men. If clini héctor indic ated, recol lect clean -catc h, mid-s tream urine and trans damon immed iatel y to Urine Cultu re Trans port Tube. Not Available [facility] , [place], [address], 05/20/2022 22:36:23 05/17/19 23 05/18/2022 CBC (INCL UDES DIFF/ PLT) WBC 12.2 thous and/u L 4.0 - 9.8 high Not Available [place], [address], 05/18/2022 12:36:37 05/17/19 23 05/18/2022 CBC (INCL UDES DIFF/ PLT) RBC 4.0 jai on/uL 3.9 - 4.9 normal Not Available [employer] [address] [place] [address], [address], 05/18/2022 12:36:37 05/17/19 23 05/18/2022 CBC (INCL UDES DIFF/ PLT) hemoglobin 12.0 g/dL 11.8 - 14.8 normal Not Available [employer] [address] [place] [address], [address], 05/18/2022 12:36:37 05/17/19 23 05/18/2022 CBC (INCL UDES DIFF/ PLT) hematocrit 36.7 % 35.5 - 44.0 normal Not Available [place] [place], [address], 05/18/2022 12:36:37 05/17/19 23 05/18/2022 CBC (INCL UDES DIFF/ PLT) MCV 91.5 fL 82.0 - 99.0 normal Not Available [place] [place], [address], 05/18/2022 12:36:37 05/17/19 23 05/18/2022 CBC (INCL UDES DIFF/ PLT) MCH 29.9 pg 27.2 - 32.6 normal Not Available [address], [address], 05/18/2022 12:36:37 05/17/19 23 05/18/2022 CBC (INCL UDES DIFF/ PLT) MCHC 32.7 g/dL 31.5 - 35.5 normal Not Available [address], [address], 05/18/2022 12:36:37 05/17/19 23 05/18/2022 CBC (INCL UDES DIFF/ PLT) RDW-CV 13.4 % 11.5 - 14.5 normal Not Available [address], [address], 05/18/2022 12:36:37 05/17/19 23 05/18/2022 CBC (INCL UDES DIFF/ PLT) platelet 421 thous and/u L 140 - 350 high Not Available [address], [address], 05/18/2022 12:36:37 05/17/19 23 05/18/2022 CBC (INCL UDES DIFF/ PLT) MPV 9.6 fL 9.3 - 12.4 normal Not Available [address], [address], 05/18/2022 12:36:37 05/17/19 23 05/18/2022 CBC (INCL UDES DIFF/ PLT) absolute neutrophil 9.44 thous and/u L 1.90 - 7.00 high Not Available [address], [address], 05/18/2022 12:36:37 05/17/19 23 05/18/2022 CBC (INCL UDES DIFF/ PLT) absolute lymphocyte 1.76 thous and/u L 0.70 - 4.50 normal Not Available [address], [address], 05/18/2022 12:36:37 05/17/19 23 05/18/2022 CBC (INCL UDES DIFF/ PLT) absolute monocyte 0.63 thous and/u L 0.10 - 1.30 normal Not Available [address], [address], 05/18/2022 12:36:37 05/17/19 23 05/18/2022 CBC (INCL UDES DIFF/ PLT) absolute eosinophil 0.25 thous and/u L <0.70 normal Not Available [address], [address], 05/18/2022 12:36:37 05/17/19 23 05/18/2022 CBC (INCL UDES DIFF/ PLT) absolute basophil 0.04 thous and/u L <0.20 normal Not Available [address], [address], 05/18/2022 12:36:37 05/17/19 23 05/18/2022 CBC (INCL UDES DIFF/ PLT) absolute immature granulocyte 0.08 thous and/u L <0.03 high Not Available [address], [address], 05/18/2022 12:36:37 05/17/19 23 05/18/2022 HEMOG LOBIN A1C hemoglobin A1C 5.2 % <5.7 normal The refer ence range for HbA1c is indic ated in the table below . Sugge sted Diagn osis =6.5% Consi stent with diabe itz 5.7 6.4% Consi stent with incre ased risk for diabe itz (pred iabet ic) <5.7% Consi stent with the absen ce of diabe itz Not Available [address], [address], 05/18/2022 15:38:15 05/17/19 23 05/18/2022 OB PANEL - STD BLOOD WORK hep B sag Nonrea ctive nonrea ctive normal Not Available [address], [address], 05/18/2022 16:09:36 05/17/19 23 05/18/2022 OB PANEL - STD BLOOD WORK hep C Ab Nonrea ctive nonrea ctive normal Not Available [address], [address], 05/18/2022 16:09:36 05/17/19 23 05/18/2022 OB PANEL - STD BLOOD WORK HIV 1/2 Ag/Ab Nonrea ctive nonrea ctive normal Not Available [address], [address], 05/18/2022 16:09:36 05/17/19 23 05/18/2022 OB PANEL - STD BLOOD WORK syphilis Ab Nonrea ctive nonrea ctive normal Not Available [address], [address], 05/18/2022 16:09:36 05/17/19 23 05/18/2022 OB PANEL - STD BLOOD WORK rubella Ab IgG 22.90 IU/mL normal INTER PRETI VE INFOR MATIO N: Rubel la Antib benedicto, IgG. < 5.0 IU/mL ..... ..... . Not consi stent with immun ity 5.0 - 9.9 IU/mL ..... . Equiv ocal: Indet ermin ate-R epeat testi ng in 10-14 days may be helpf ul. > or = 10.0 IU/mL ... Consi stent with immun ity The prese nce of Rubel la IgG antib benedicto sugge st respo nse to immun izati on or prior /curr ent expos ure to the Rubel la virus . Not Available [address], [address], 05/18/2022 16:09:36 04/12/20 22 04/12/2022 US, trans vagin al No observ ation record ed. roninski Chioma [address], [place], [address], 04/14/2022 22:41:10 05/13/20 22 05/11/2022 US, obste tric, mater nal evalu ation + anato my No observ ation record ed. [email or web address] Chi[address], [place], [address], 05/17/2022 13:00:48 Result Notes None recorded. Problems Name Problem SNOMED Code Status Onset Date Resolution Date Notes Provider Name and Address Organization Details Recorded Time Pregnanc y 76113549 Completed 202111/09/2022 Zuleima alvarez, [facility] 3 15:28:19 Low lying placenta [id number] Completed followup after 28 weeks. Zuleima alvarez, [employer] [facility] 3 15:28:16 Problem Notes None recorded. Procedures Surgical History None recorded. Imaging Results Imaging Date Name Status LastModified by Organization Details LastModified Time 04/12/2022 US, transvaginal completed [email or web address] [address], [place], [address], 04/14/2022 22:41:10 05/11/2022 US, obstetric, maternal evaluation + anatomy completed [email or web address] [address], [place], [address], 05/17/2022 13:00:48 Procedure Notes None recorded. Medical Equipment None Reported. Allergies No known drug allergies Medications Not known to be on any medication Vitals Date Recorded Body weight Provider Name an d Address Organization Details Last Updated DateTime 04/12/2022 40342.74162 g Anita Garcia, CHARLA [address] [facility], [place], [address], [facility] [facility] 04/18/2022 10:13:50 Date Recorded Body temperature Body mass index (BMI) Body height Systolic blood pressure Diastolic blood pressure Provider Name and Address Organization Details Last Updated DateTime 2 98 [degF] 31.6 kg/m2 172.72 cm 112 mm[Hg] 72 mm[Hg] Zuleima Bradleylister [facility] [facility] 2 13:08:23 Date Recorded Body height Body temperature Body mass index (BMI) Systolic blood pressure Diastolic blood pressure Provider Name and Address Organization Details Last Updated DateTime 2 172.72 cm 98.2 [degF] 32.3 kg/m2 128 mm[Hg] 82 mm[Hg] Raj [place] [facility] [facility] 2 12:46:16 Date Recorded Body weight Provider Name an d Address Organization Details Last Updated DateTime 05/11/2022 79218.309309 g Anita Garcia, [facility] [address] [place], [address], [employer] [facility] 05/11/2022 13:02:45 Social History Question Answer Notes LastModified by Organizat ion Details LastModified Time Tobacco Smoking Status Never Smoker Zuleima Durant null, [facility] 04/12/2022 12:21:34 What Is Your Level Of Alcohol Consumption? None Information not available 04/12/2022 If You Are , What Was Your Level Of Alcohol Consumption Prior To ? None Information not available 05/11/2022 Are You Blind Or Do You Have Difficulty Seeing? No Information not available 04/12/2022 Are You Deaf Or Do You Have Serious Difficulty Hearing? No Information not available 04/12/2022 What Type Of Diet Are You Following? REGULAR Information not available 04/12/2022 Do You Or Have You Ever Used E-cigarettes Or Vape? Never Used Electronic Cigarettes Information not available 04/12/2022 How Many Children Do You Have? 2 Information not available 05/11/2022 What Is Your Relationship Status? Domestic Partner Information not available 04/12/2022 Are You Sexually Active? Yes Information not available 04/12/2022 Do You Use Any Illicit Or Recreational Drugs? No Information not available 04/12/2022 Do You Or Have You Ever Used Any Other Forms Of Tobacco Or Nicotine? No Information not available 05/11/2022 Sex: Female Functional Status Question Answer Note LastModified by Organization D etails LastModified Time What is your exercise level? None Information not available 04/12/2022 Mental Status None recorded. Family History Relationship Description Onset Age of this Age Resolved Age Notes LastModified by Organization Details LastModified Time Mother Malignant tumor of breast Not available 03/16 12:21:34 Medical History No medical history recorded. Gynecological History Statement/Question Response Flow Heavy Date of LMP 12/09/2021 Frequency of Cycle (Q days) 30 days Date of Last Pap Smear Duration of Flow (days) 4 Current Control Method Age at Menarche 14 Obstetrics History GPAL:G 3 P 2 0 0 2 Type Value Full Term 2 Living 2 Total 3 Past Encounters Encounter ID Performer Location Encounter Start Date Encounter Closed Date Diagnosis/Indication Diagnosis SNOMED-CT Code Diagnosis ICD10 Code Diagnosis Note [id number] Anita Garcia CNM [facility] [address] [place] [address] 04/12/2022 12:01:13 04/12/2022 14:05:22 test positive [id number] Z32.01 Routine an tenatal care [id number] Z34.01 Z34.81 O09.511 O09.527 [id number] Anita Garcia CNM [facility] [address] [place] [address] 05/11/2022 11:56:49 05/11/2022 13:07:17 Gestation period, 21 weeks [id number] Z3A.21 screening for malformation 976887804 Z36.3 Routine an tenatal care [id number] Z34.01 Z34.81 O09.511 O09.521 screening 2437 98671 Z36.0 Carrier de tection, molecular genetics 2498405 Z14.8 Health Concerns Section Related Observation LastModified by Organization Detai ls LastModified Time None Recorded Concern Status LastModified by Organization Details LastModified Time None Recorded Advance Directives Directive None Recorded Payers Encounter Date Sequence Insurance Name Policy Number Policy Laureano Covered Member ID Laureano Member ID Guarantor Name 04/12/2022 1 [facility] ON OR AFTER 11/12/20 (MEDICAID REPLACEMENT - HMO) Shirlene Johnson [id number] Shirlene Johnson 05/11/2022 1 [facility] - DOS ON OR AFTER 20 (MEDICAID REPLACEMENT - HMO) Shirlene Johnson [id number] Shirlene Johnson Notes Date Note Type Note Provider Name and Address Organization Details Recorded Time 04/12/2022 text/html Confirmation VisitReported bypatient.obstetric s and gynecologyno bleeding between periods Anita Garcia, [employer] [address] [place], [address], [facility] [employer] 04/18/2022 10:20:43 05/11/2022 text/html Patient is here for a routine ob visit. She is 21.6 weeks gestation and is doing well at this time. She is getting her anatomy scan done today and also still needs to complete her NOB labs today. Anita Garcia CNM [address] [place], [address], [facility] [employer] 05/11/2022 13:13:40 OBGyn Episode Ob Episode Information Episode Created Date Number of Fetuses Patient Bloodtype Patient rh Status Prepregnancy Weight lbs Domestic Partner Domestic Partner Phone Father Name Pattern Scratcher Status 04/12/20 22 1 CLOSED Fetus Data First Name Last Name Admitted to NICU Weight (g) Sex Living Outcome Pediatric Complications Fetus ID Race Codes Race Delivery Type [id number] Problems Problem Notes Problem Name Start Date End Date Resolution Snomed Code Not e Low lying placenta [id number] f ollowup after 28 weeks. Scott Calculation Initial Scott Date Initial Exam Date Initial Exam Provider Initial Ultrasound Date Last Menstrual Period Date Ultra Sound Weeks Gestation 09/15/2022 04/12/2022 04/12/2022 12/09/2021 17 Eighteen To Twenty Week Scott Update Ultra Sound Date Fundal Height At Umbil Quickening Date Ultra Sound Latest Weeks Gestation Final Scott Confirmed By Final Scott Confirmed Date Final Scott Date Ultra Sound Latest Days Gestation 0 layla 04/18/2022 023 0 Pre-sona Flowsheet Flowsheet Date 04/12/2022 Alvarez Score Blood Edema Fundus Height Fundus Units Glucose Ketones Leukocytes Nitrite Labor Signs Protein Cervic Dilation Cervic Effacement Cervic Station Type Weight in lbs Pre/Post Dialysis Refused Weight 208.221499126712 BP Diastolic BP Location Tested BP Systolic BP Type 72 112 Fetus Heart Rate Present A 157 Fetus Movement A Yes Comments Late to care. Ultrasound tod ay consistent with LMP. NOB labs done. Precautions reviewed. Denies questions or concerns. Flowsheet Date 05/11/2022 Alvarez Score Blood Edema Fundus Height Fundus Units Glucose Ketones Leukocytes Nitrite Labor Signs Protein Cervic Dilation Cervic Effacement Cervic Station Type Weight in lbs Pre/Post Dialysis Refused With clothes 212.359091192746 BP Diastolic BP Location Tested BP Systolic BP Type 82 R arm 128 sitting Fetus Heart Rate Present A 146 Fetus Movement A Yes Comments NOB labs today with kari anderson [facility] at patient request. Anatomy complete. LLP discussed strict precautions. Menstrual History Last Menstrual Date Menses Monthly On Bcp Conception Prior Menses Frequency Hcg Plus Date Menarche Onset Age 0712/09/2021 Delivery Information Delivery Date Delivery Type Labor Anesthesia Weeks Gestation Incision Type Labor Labor Length Hrs Delivered By Post Complications Tubal Sterilization Discharge Date Comments Discharge Information Feeding Method Contraceptive Method Maternal HG B and HCT Levels
--- OUTSIDE RECORDS SUMMARY | 2024-07-23 18:09 | XMS_ITS | Clinical Summary ---
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 Gender Identity Not on file Sexual Orientation Not on file Plan of Treatment Health Maintenance Due Date Last Done Comments Hepatitis C Virus (HCV) Screening 1991 TdaP Immunization 1991 Hepatitis B Immunization (1 of 3 - 19+ 3-dose series) 2010 Pap Smear 2012 Cervical Cancer Screening (CCS) 2021 HPV/Cotest 2021 Influenza Immunization (#1) 2024 SARS-COV-2 Immunization ( season) 2024 Respiratory Syncytial Virus (RSV) Immunization (Adult) (1 - 1-dose 75+ series) 2066 DTaP/Tdap/Td Immunization Discontinued 1996, 12/26/1994, 01/22/1993, Additional history exists Meningococcal Immunization (ACWY) Aged Out No longer eligible based on patient's age to complete this topic Pneumococcal Immunization Combined Aged Out No longer eligible based on patient's age to complete this topic Rotavirus Immunization Aged Out No lo nger eligible based on patient's age to complete this topic Insurance [employer] on file
--- OUTSIDE RECORDS SUMMARY | 2024-07-23 18:09 | XMS_ITS | Referral Summary ---
Author Organization [facility] Address [address] [address] Care Team Providers Care Direct Mail Coordinator Name Role Phone Milan Pierce MD Primary Care Provider [phone] Source Comments [facility],non-owned Affiliates and Associated Physician Practices is amultiple site organization consisting of ambulatory clinics and hospital sitesin [place], [place], [place] and [place]. This disclosure is being madepursuant to the Care Everywhere program and may not contain all information available regarding this patient. Last updated 18.[facility] Encounters Date Type Department Care Team Description 07/05/2024 Orders Only [facility] [address] [phone] Milan Pierce MD Thyroid nodule ; Class 1 obesity due to excess calories without serious comorbidity with body mass index (BMI) of 30.0 to 30.9 in adult; Neck swelling 07/04/2024 1:15 PM METAL MOVER Clinical Support [facility] [address] [phone] 05/28/2024 Orders Only [facility] [address] [address] Milan Pierce MD Class 1 obesity due to excess calories without serious comorbidity with body mass index (BMI) of 30.0 to 30.9 in adult 05/28/2024 1:15 PM METAL MOVER Clinical Support [facility] 1000 [facility], [address] [address] Class 1 obesity due to excess calories without serious comorbidity with body mass index (BMI) of 30.0 to 30.9 in adult 04/26/2024 Orders Only [facility] 1000 [facility], [address] [address] Milan Pierce MD Class 1 obesity due to excess calories without serious comorbidity with body mass index (BMI) of 30.0 to 30.9 in adult 04/26/2024 1:15 PM METAL MOVER Clinical Support [facility] 1000 [facility], [address] [address] Class 1 obesity due to excess calories without serious comorbidity with body mass index (BMI) of 30.0 to 30.9 in adult from Last 3 Months Allergies No known active allergies Medications * Be aware that medications may not be up to date on this document. Alwaysverify current medications with the patient. Medication Sig Dispensed Refills Start Date End Date Status escitalopram (Lexapro) 10 MG tabletIndications :Anxiety and depression Take 1 (one) tablet by mouth once daily 30 tablet 2 09/11/2023 Active phentermine (Ionamine) 15 MG capsuleIndication s:Class 1 obesity due to excess calories without serious comorbidity with body mass index (BMI) of 30.0 to 30.9 in adult Take 1 (one) capsule by mouth daily before breakfast 30 capsule 07/05/2024 Active phentermine (Ionamine) 15 MG capsuleIndication s:Class 1 obesity due to excess calories without serious comorbidity with body mass index (BMI) of 30.0 to 30.9 in adult Take 1 (one) capsule by mouth daily before breakfast 30 capsule 05/28/2024 07/05/2024 Discontinue d(Reorder) Active Problems Problem Noted Date Diagnosed Date -induced hypertension 04/24/2023 1 06/25/2022 Overview (04/24/2023): waiting on 24 hr urine plan 37 week IOL Low-lying placenta 04/24/2023 04/24/2023 Overview (04/24/2023): Marginal previa - RESOLVED History of gestational hypertension 04/24/2023 04/24/2023 Overview (04/24/2023): delivered last baby @ 37wks, did not start ASA Gestational diabetes mellitus 04/24/2023 Overview (04/24/2023): bs QID , testing 32wks state, incidental 11/09/2020 with one fetus, antepartum 07/31/2020 Rh negative state in antepartum period Migraine with aura and witho ut status migrainosus, not intractable 03/03/2020 04/24/2023 Generalized anxiety disorder 05/17/201803/2023 Chronic diarrhea 05/17/2018 04/24/2023 Resolved Problems Problem Noted Date Diagnosed Date Resolved Date Cystic fibrosis 04/24/2023 04/24/2023 06/27/2023 Overview (04/24/2023): +CARRIER - informed, FOB not tested Immunizations Name Administration Dates Next Due DTP, HISTORIC VACCINE 01/17/1997, 995,01/22/1993,01/02/1992, 2 HIB VACCINE 01/22/1993,01/02/1992,1991 MMR VACCINE 01/17/1997,01/22/1993 POLIO OPV 01/17/1997,01/22/1993,01/02/1992 ,1991 Rho D Immune Globulin 11/11/2020,08/31/2020 TDAP (7yrs+) 08/31/2020 TDAP, HISTORIC VACCINE 08/28/2022 Social History Tobacco Use Types Packs/Day Years Used Date Smoking Tobacco: Never Smokeless Tobacco: Never Tobacco Cessation:Counseling Given: Not Answered Alcohol Use Standard Drinks/Week Comments Yes 0 (1 standard drink = 0.6 oz pur e alcohol) occasionally PHQ-2 Answer Date Recorded Patient Health Questionnaire-2 Score 4 09/11/2023 [place] Depression Scale Answer Date Recorded Last EPDS Total Score Not on file 12/18/2020 The thought of harming myself has occurred to me . Never 12/18/2020 Sex and Gender Information Value Date Recorded Sex Assigned at Not on file Gender Identity Not on file Sexual Orientation Not on file Last Filed Vital Signs Vital Sign Reading Time Taken Comments Blood Pressure 110/70 07/04/2024 1:35 PM METAL MOVER Pulse 100 07/04/2024 1:35 PM METAL MOVER Temperature 36.4 C (97.5 F) 02/29/2024 1:31 PM CDT Respiratory Rate 20 05/11/2023 2:23 PM METAL MOVER Oxygen Saturation 97% 07/04/2024 1:35 PM METAL MOVER Inhaled Oxygen Concentration - - Weight 84.2 kg (185 lb 9.6 oz) 07/04/2024 1:35 P M METAL MOVER Height 172.7 cm (5' 8 ) 07/04/2024 1:35 PM METAL MOVER Body Mass Index 28.22 07/04/2024 1:35 PM METAL MOVER Functional Status Functional Status Response Date of [...] person have difficulty concentrating/remembering/making decisions? No 11/10/2020 Plan of Treatment Not on file Procedures Procedure Name Priority Date/Time Associated Diagnosis Comments PAP IG LB CT+GC+TV RFLX HPV HR ASCU Routine 03/31/2020 12:09 PM METAL MOVER Amenorrhea HIV-1 HIV-2 ANTIBODY + HIV P24 AG PANEL Routine 03/31/2020 11:55 AM METAL MOVER Amenorrhea from Last 3 Months or Most Recently Relevant to Health Maintenance Results * PAP IG LB CT+GC+TV RFLX HPV HR ASCU (03/31/2020 12:09 PM METAL MOVER) Diagnosis [facility] ACCOUNT BILL Comment:NEGATIVE FOR INTRAEP ITHELIAL LESION OR MALIGNANCY. Specimen Adequacy [facility] ACCOUNT BILL Comment:Satisfactory for addy luation. No endocervical component is identified. Clinician Provided ICD10 [facility] ACCOUNT BILL Comment:N91.2 Performed by [facility] ACCOUNT BILL Comment:Paulina Cote, Cytote chnologist (ASCP) Comment . [facility] ACCOUNT BILL Note [facility] ACCOUNT BILL Comment: The Pap smear is a screening test designed to aid in the detection of premalignant and malignant conditions of the uterine cervix. It is not a diagnostic procedure and should not be used as the sole means of detecting cervical cancer. Both false-positive and false-negative reports do occur. . IGLBP CPT Code Automation [facility] ACCOUNT BILL Comment: This liquid based ThinPrep(R) pap test was screened with the use of an image guided system. Note [facility] ACCOUNT BILL Comment: The HPV DNA reflex criteria were not met with this specimen result therefore, no HPV testing was performed. . Chlamydia trachomatis JAMSHID Negative Negative [facility] ACCOUNT BILL GC JAMSHID Negative Negative [facility] ACCOUNT BILL Trichomonas vaginalis by JAMSHID Negative Negative [facility] ACCOUNT BILL PART OF UTERINE CERVIX / Unknown 03/31/2020 12:09 PM METAL MOVER 03/31/2020 Narrative [facility] ACCOUNT BILL - 04/02/2020 3:08 PM METAL MOVER Source.............Cervix;Endocervix No. of containers..01 ThinPrep Vial Resulting Agency Comment Lab Testing performed at: [address] [id number] Donny Braden MD LAB - PATHOLOGY/CYT OLOGY ORDERABLES Performing Organization Address City/[facility] Co de Phone Number [facility] ACCOUNT BILL [address] [place] [address] * HIV-1 HIV-2 ANTIBODY + HIV P24 AG PANEL (03/31/2020 11:55 AM METAL MOVER) HIV Screen 4th Generation w Reflex Non Reactive Non Reactive [facility] ACCOUNT BILL Blood BLOOD SPECIMEN / Unknown 03/31/2020 11:55 AM METAL MOVER 03/31/2020 Narrative Resulting Agency Comment [facility] [address] [place] [id number] Donny Braden MD LAB - CHEMISTRY ORD ERABLES Performing Organization Address City/[facility]/ZIP Co de Phone Number [facility] ACCOUNT BILL [address] [place] [address] from Last 3 Months or Most Recently Relevant to Health Maintenance Advance Directives * Full Code (Latest Code Status on File) Date Activated Date Inactivated Comments 11/09/2020 11:18 PM 11/12/2020 1:30 PM Care Teams Direct Mail Coordinator Relationship Specialty Start Date End Date Milan Pierce MD [address] [phone] PCP - General Family Medicine 04/25/23
--- OUTSIDE RECORDS SUMMARY | 2024-07-23 18:09 | XMS_ITS | Clinical Summary ---
Author Organization [facility] Address [address] [place] [address] Care Team Providers Care Global Compensation Analyst Name Role Phone Milan Pierce MD Primary Care Provider [phone] Source Comments [facility],non-owned Affiliates and Associated Physician Practices is amultiple site organization consisting of ambulatory clinics and hospital sitesin [place], [place], [place] and [place]. This disclosure is being madepursuant to the Care Everywhere program and may not contain all information available regarding this patient. Last updated 18.[facility] Allergies No known active allergies Medications * [...] (04/24/2023): +CARRIER - informed, FOB not tested Encounters Date Type Department Care Team Description 07/05/2024 Orders Only [address] [phone] Milan Pierce MD Thyroid nodule ; Class 1 obesity due to excess calories without serious comorbidity with body mass index (BMI) of 30.0 to 30.9 in adult; Neck swelling 07/04/2024 1:15 PM AFTER SCHOOL COUNSELOR Clinical Support [address] [phone] 05/28/2024 1:15 PM AFTER SCHOOL COUNSELOR Clinical Support [address], [address] [phone] Class 1 obesity due to excess calories without serious comorbidity with body mass index (BMI) of 30.0 to 30.9 in adult 05/28/2024 Orders Only [facility] 1000 [facility], [facility] [address] [place] [address] Milan Pierce MD Class 1 obesity due to excess calories without serious comorbidity with body mass index (BMI) of 30.0 to 30.9 in adult 04/26/2024 1:15 PM AFTER SCHOOL COUNSELOR Clinical Support [facility] 1000 [facility], [facility] [address] [place] [address] Class 1 obesity due to excess calories without serious comorbidity with body mass index (BMI) of 30.0 to 30.9 in adult 04/26/2024 Orders Only [facility] [address] [facility], [facility] [address] [place] [address] Milan Pierce MD Class 1 obesity due to excess calories without serious comorbidity with body mass index (BMI) of 30.0 to 30.9 in adult from Last 3 Months Immunizations Name Administration Dates Next Due DTP, HISTORIC VACCINE 01/17/1997, 995,01/22/1993,01/02/1992, 2 HIB VACCINE 01/22/1993,01/02/1992,1991 MMR VACCINE 01/17/1997,01/22/1993 POLIO OPV 01/17/1997,01/22/1993,01/02/1992 ,1991 Rho D Immune Globulin 11/11/2020,08/31/2020 TDAP (7yrs+) 08/31/2020 TDAP, HISTORIC VACCINE 08/28/2022 Family History Medical History Relation Name Comments Cancer - Pancreatic Father Cancer - Breast Mother 04/2023 curr ently in remission Relation Name Status Comments Brother Alive Father Mother Alive Social History Tobacco Use Types Packs/Day Years Used Date Smoking Tobacco: Never Smokeless Tobacco: Never Tobacco Cessation:Counseling Given: Not Answered Alcohol Use Standard Drinks/Week Comments Yes 0 (1 standard drink = 0.6 oz pur e alcohol) occasionally PHQ-2 Answer Date Recorded Patient Health Questionnaire-2 Score 4 09/11/2023 [place] Depression Scale Answer Date Recorded Last EPDS [...] Comments Blood Pressure 110/70 07/04/2024 1:35 PM AFTER SCHOOL COUNSELOR Pulse 100 07/04/2024 1:35 PM AFTER SCHOOL COUNSELOR Temperature 36.4 C (97.5 F) 02/29/2024 1:31 PM CDT Respiratory Rate 20 05/11/2023 2:23 PM AFTER SCHOOL COUNSELOR Oxygen Saturation 97% 07/04/2024 1:35 PM AFTER SCHOOL COUNSELOR Inhaled Oxygen Concentration - - Weight 84.2 kg (185 lb 9.6 oz) 07/04/2024 1:35 P M AFTER SCHOOL COUNSELOR Height 172.7 cm (5' 8 ) 07/04/2024 1:35 PM AFTER SCHOOL COUNSELOR Body Mass Index 28.22 07/04/2024 1:35 PM AFTER SCHOOL COUNSELOR Plan of Treatment Health Maintenance Due Date Last Done Comments HEPATITIS C SCREENING 04/29/2009 HEPATITIS B VACCINE (1 of 3 - 19+ 3-dose series) 2010 COVID-19 VACCINE (2023- season) 2024 INFLUENZA VACCINE (#1) 2024 DEPRESSION SCREENING 05/15/2024 06/27/2023, 04/24/20 23 PAP SMEAR 07/07/2026 07/07/2023, 06/16 (Done Outside Per Report), 03/31/2020 DTAP/TDAP/TD VACCINES (8 - Td or Tdap) 08/28/2032 08/28/2022, 08/31/2020, 01/17/1997, Additional history exists ZOSTER VACCINE (1 of 2) 2041 HIB VACCINE Completed 01/22/1993, 12/14, 1991 HIV SCREENING Completed 03/31/2020 HPV VACCINE Aged Out No longer eligi ble based on patient's age to complete this topic MENINGOCOCCAL (Group B) VACCINE Aged Out No longer eligible based on patient's age to complete this topic MENINGOCOCCAL VACCINE Aged Out No noe rolando eligible based on patient's age to complete this topic PNEUMOCOCCAL VACCINE Aged Out No long er eligible based on patient's age to complete this topic Procedures Procedure Name Priority Date/Time Associated Diagnosis Comments PAP IG LB CT+GC+TV RFLX HPV HR ASCU Routine 03/31/2020 12:09 PM AFTER SCHOOL COUNSELOR Amenorrhea HIV-1 HIV-2 ANTIBODY + HIV P24 AG PANEL Routine 03/31/2020 11:55 AM AFTER SCHOOL COUNSELOR Amenorrhea from Last 3 Months or Most Recently Relevant to Health Maintenance Results * PAP IG LB CT+GC+TV RFLX HPV HR ASCU (03/31/2020 12:09 PM AFTER SCHOOL COUNSELOR) Diagnosis [facility] ACCOUNT BILL Comment:NEGATIVE FOR INTRAEP [...] UTERINE CERVIX / Unknown 03/31/2020 12:09 PM AFTER SCHOOL COUNSELOR 03/31/2020 Narrative [facility] ACCOUNT BILL - 04/02/2020 3:08 PM AFTER SCHOOL COUNSELOR Source.............Cervix;Endocervix No. of containers..01 ThinPrep Vial Resulting Agency Comment Lab Testing performed at: [address] [id number] Donny Braden MD LAB - PATHOLOGY/CYT OLOGY ORDERABLES [facility] ACCOUNT BILL [address] [place] [address] * HIV-1 HIV-2 ANTIBODY + HIV P24 AG PANEL (03/31/2020 11:55 AM AFTER SCHOOL COUNSELOR) HIV Screen 4th Generation w Reflex Non Reactive Non Reactive [facility] ACCOUNT BILL Blood BLOOD SPECIMEN / Unknown 03/31/2020 11:55 AM AFTER SCHOOL COUNSELOR 03/31/2020 Narrative Resulting Agency Comment Lab Testing performed at: [facility] [address] [facility] [id number] Donny Braden MD LAB - CHEMISTRY ORD ERABLES [facility] ACCOUNT BILL [address] [place] [place] [address] from Last 3 Months or Most Recently Relevant to Health Maintenance Advance Directives * Full Code (Latest Code Status on File) Date Activated Date Inactivated Comments 11/09/2020 11:18 PM 11/12/2020 1:30 PM Care Teams Global Compensation Analyst Relationship Specialty Start Date End Date Milan Pierce MD [address] [phone] PCP - General Family Medicine 04/25/23
--- OUTSIDE RECORDS SUMMARY | 2024-07-23 18:09 | XMS_ITS | Clinical Summary ---
Author Organization [facility] Address Formerly [facility], [facility] [place] [address] Care Team Providers Care Potato Sorter Name Role Phone Susana Brooks PHARMACY CLINICAL COORDINATOR Primary Care Provider [phone] Allergies No known active allergies Medications traMADol (ULTRAM) 50 MG tabletIndications:A cute Pain < 3 Day Supply Take 1 tablet (50 mg total) by mouth every 6 (six) hours as needed for Pain. Indications: Acute Pain < 3 Day Supply 12 tablet 0 Active fexofenadine-pseudo ephedrine ER (BETZAIDA-D ALLERGY CONGESTION) 60-120 MG 12 hr tablet Take 1 tablet by mouth 2 (two) times daily. 20 tablet 0 Active fluticasone propionate (FLONASE) 50 MCG/ACT nasal spray 2 sprays by Each Nostril route daily. 16 g 0 Active ondansetron 4 MG disintegrating tablet Take 1 tablet (4 mg total) by mouth every 8 (eight) hours as needed. 10 tablet 0 Active naproxen (NAPROSYN) 500 MG tablet Take 1 tablet (500 mg total) by mouth 2 (two) times daily with meals. 20 tablet 3 Active Social History Tobacco Use Types Packs/Day Years Used Date Smoking Tobacco: Never Smokeless Tobacco: Never Tobacco Cessation:Counseling Given: Not Answered Alcohol Use Standard Drinks/Week Comments No 0 (1 standard drink = 0.6 oz pur e alcohol) AUDIT-C Answer Date Recorded Frequency of Alcohol Consumption Never 05/16/2019 Average Number of Drinks Not on file 020 Frequency of Binge Drinking Not on file 06/2019 Comments Unknown Sex and Gender Information Value Date Recorded Sex Assigned at Not on file Legal Sex Female 7:50 PM CDT Gender Identity Not on file Sexual Orientation Not on file Last Filed Vital Signs Vital Sign Reading Time Taken Comments Blood Pressure 121/83 04/22/2023 11:08 AM [employer] Pulse 96 04/22/2023 11:08 AM [employer] Temperature 36.1 C (97 F) 04/22/2023 11:08 AM [employer] Respiratory Rate 16 04/22/2023 11:08 AM [employer] Oxygen Saturation 99% 04/22/2023 11:08 AM [employer] Inhaled Oxygen Concentration - - Weight 86.2 kg (190 lb) 04/22/2023 11:08 AM [employer] Height 172.7 cm (5' 8 ) 04/22/2023 11:08 AM [employer] Body Mass Index 28.89 04/22/2023 11:08 AM [employer] Plan of Treatment Health Maintenance Due Date Last Done Comments Cervical Cancer Screening Pap Smear (Age 30 to 64) Every 3 Years 1991 Annual Physical 1994 Hepatitis C 2009 Hepatitis B Vaccines (1 of 3 - 19+ 3-dose series) 2010 Cervical Cancer Screening Pap with HPV Testing (Age 30 to 64) Every 5 Years 2021 Cervical Cancer Screening with HPV 2021 COVID-19 Vaccine (2023- season) 2024 Influenza Adult (#1) 2024 DTaP, Tdap and Td Vaccines (2 - Td or Tdap) 08/31/2030 08/31/2020, 01/17/1997, 12/26/1994, Additional history exists HPV Vaccines Aged Out No longer eligi ble based on patient's age to complete this topic Meningococcal B Vaccine Aged Out No l onger eligible based on patient's age to complete this topic Meningococcal Vaccine Aged Out No noe rolando eligible based on patient's age to complete this topic Pneumococcal Vaccine: Pediatrics (0 to 5 Years) and At-Risk Patients (6 to 64 Years) Aged Out No longer eligible based on patient's age to complete this topic RSV Immunizations Under 20 Months Aged Out No longer eligible based on patient's age to complete this topic Insurance [employer] Care Teams Potato Sorter Relationship Specialty Start Date End Date Susana Brooks NP [address] [id number] PCP - General FAMILY PRACTICE 04/22/23
--- OUTSIDE RECORDS SUMMARY | 2024-07-23 18:09 | XMS_ITS | Patient Health Summary ---
Author Organization [facility] [email or web address] Address [address] [place] [address] Care Team Providers Care Junior Media Buyer Name Role Phone Milan Pierce MD Primary Care Provider Note from [facility],non-owned Affiliates and Associated Physician Practices is amultiple site organization consisting of ambulatory clinics and hospital sitesin [place], [place], [place] and [place]. This disclosure is being madepursuant to the Care Everywhere program and may not contain all information available regarding this patient. Last updated 18.[facility] [email or web address] Allergies No known active allergies Medications * Be aware that medications may not be up to date on this document. Alwaysverify current medications with the patient. * escitalopram (Lexapro) 10 MG tablet(Started 09/11/2023) Take 1 (one) tablet by mouth once daily 2 refills by 09/10/2024 * phentermine (Ionamine) 15 MG capsule(Started 07/05/2024) Take 1 (one) capsule by mouth daily before breakfast Ended Medications* phentermine (Ionamine) 15 MG capsule(Started 05/28/2024) (Discontinued) Take 1 (one) capsule by mouth daily before breakfast Active Problems Problem Noted Date Diagnosed Date -induced hypertension 04/24/2023 1 06/25/2022 Low-lying placenta 04/24/2023 04/24/2023 History of gestational hypertension 04/24/2023 04/24/2023 Gestational diabetes mellitus 04/24/2023 state, incidental 11/09/2020 with one fetus, antepartum 07/31/2020 Rh negative state in antepartum period Migraine with aura and witho ut status migrainosus, not intractable 03/03/2020 04/24/2023 Generalized anxiety disorder 05/17/201803/2023 Chronic diarrhea 05/17/2018 04/24/2023 Resolved Problems Problem Noted Date Diagnosed Date Resolved Date Cystic fibrosis 04/24/2023 04/24/2023 06/27/2023 Immunizations * DTP, HISTORIC VACCINE(Given 01/17/1997, 12/26/1994, 01/22/1993, 01/02/1992, 1991) * HIB VACCINE(Given 01/22/1993, 01/02/1992, 1991) * MMR VACCINE(Given 01/17/1997, 01/22/1993) * POLIO OPV(Given 01/17/1997, 01/22/1993, 01/02/1992, 1991) * Rho D Immune Globulin(Given 11/11/2020, 08/31/2020) * TDAP (7yrs+)(Given 08/31/2020) * TDAP, HISTORIC VACCINE(Given 08/28/2022) Social History Tobacco Use Types Packs/Day Years Used Date Smoking Tobacco: Never Smokeless Tobacco: Never Tobacco Cessation:Counseling Given: Not Answered Alcohol Use Standard Drinks/Week Comments Yes 0 (1 standard drink = 0.6 oz pur e alcohol) occasionally PHQ-2 Answer Date Recorded Patient Health Questionnaire-2 Score 4 09/11/2023 [place] Depression Scale Answer Date Recorded Last EPDS [...] Comments Blood Pressure 110/70 07/04/2024 1:35 PM WRIST LINER Pulse 100 07/04/2024 1:35 PM WRIST LINER Temperature 36.4 C (97.5 F) 02/29/2024 1:31 PM CDT Respiratory Rate 20 05/11/2023 2:23 PM WRIST LINER Oxygen Saturation 97% 07/04/2024 1:35 PM WRIST LINER Inhaled Oxygen Concentration - - Weight 84.2 kg (185 lb 9.6 oz) 07/04/2024 1:35 P M WRIST LINER Height 172.7 cm (5' 8 ) 07/04/2024 1:35 PM WRIST LINER Body Mass Index 28.22 07/04/2024 1:35 PM WRIST LINER Procedures * CBC W AUTO DIFFERENTIAL(Performed 02/29/2024) Performed for Fatigue, unspecified type * IRON + TIBC + FERRITIN(Performed 02/29/2024) Performed for Fatigue, unspecified type * VITAMIN D 25-HYDROXY(Performed 02/29/2024) Performed for Fatigue, unspecified type * VITAMIN B12 FOLATE PANEL(Performed 02/29/2024) Performed for Fatigue, unspecified type * JUAN JOSE BLOOD SCREEN W/REFLEX TITER(Performed 02/29/2024) Performed for Fatigue, unspecified type * C-REACTIVE PROTEIN(Performed 02/29/2024) Performed for Fatigue, unspecified type * RHEUMATOID FACTOR BLOOD QUANTITATIVE(Performed 02/29/2024) Performed for Fatigue, unspecified type * ERYTHROCYTE SEDIMENTATION RATE(Performed 02/29/2024) Performed for Fatigue, unspecified type * MAMMOGRAM(Performed 12/13/2023) * US THYROID(Performed 10/06/2023) Performed for Thyroid nodule * VITAMIN D 25-HYDROXY(Performed 09/11/2023) Performed for Fatigue, unspecified type * VITAMIN B12 FOLATE PANEL(Performed 09/11/2023) Performed for Fatigue, unspecified type, Anxiety and depression * THYROID AB PANEL (TPO AB+THYROGLOB AB)(Performed 09/11/2023) Performed for Fatigue, unspecified type, Anxiety and depression * IRON + TIBC + FERRITIN(Performed 09/11/2023) Performed for Fatigue, unspecified type, Anxiety and depression * TSH REFLEX FREE T4(Performed 09/11/2023) Performed for Fatigue, unspecified type, Anxiety and depression * COMPREHENSIVE METABOLIC PANEL(Performed 09/11/2023) Performed for Gestational diabetes mellitus (GDM), antepartum, gestational diabetes method of control unspecified (HCC), Fatigue, unspecified type * CBC W AUTO DIFFERENTIAL(Performed 09/11/2023) Performed for Fatigue, unspecified type, Anxiety and depression * HEMOGLOBIN A1C - POINT OF CARE (AMB)(Performed 09/11/2023) Performed for Gestational diabetes mellitus (GDM), antepartum, gestational diabetes method of control unspecified (HCC) * IMAGING/RADIOLOGY/XRAY RESULTS ORDER(Performed 07/07/2023) * STREP A SCREEN - POINT OF CARE (AMB)(Performed 06/27/2023) Performed for Strep throat * STREP A SCREEN - POINT OF CARE (AMB)(Performed 05/11/2023) Performed for Sore throat * US THYROID(Performed 05/02/2023) Performed for Thyroid nodule * T4 TOTAL(Performed 04/24/2023) Performed for Thyroid nodule * T4 FREE(Performed 04/24/2023) Performed for Thyroid nodule * T3 FREE(Performed 04/24/2023) Performed for Thyroid nodule * THYROID AB PANEL (TPO AB+THYROGLOB AB)(Performed 04/24/2023) Performed for Thyroid nodule * T3 TOTAL(Performed 04/24/2023) Performed for Thyroid nodule * TSH(Performed 04/24/2023) Performed for Thyroid nodule * SCREEN(Performed 11/11/2020) * CBC W AUTO DIFFERENTIAL(Performed 11/11/2020) * PATHOLOGY TISSUE EXAM (STL)(Performed 11/10/2020) Performed for state, incidental ([facility]) * NEURAXIAL BLOCK(Performed 11/10/2020) * BLOOD TYPE VERIFICATION(Performed 11/10/2020) * TYPE + SCREEN PANEL(Performed 11/10/2020) * CBC W AUTO DIFFERENTIAL(Performed 11/10/2020) * NONSTRESS TEST(Performed 10/30/2020) * CULTURE STREP B(Performed 10/15/2020) Performed for 35 weeks gestation of ([facility]) * URINALYSIS REFLEX MICROSCOPIC REFLEX CULTURE(Performed 09/29/2020) Performed for with one fetus, antepartum ([facility]) * GTT 3 HR (100G) GESTATIONAL DIAGNOSTIC(Performed 08/24/2020) Performed for Encounter for screening ([facility]), 28 weeks gestation of ([facility]) * CBC W AUTO DIFFERENTIAL(Performed 08/18/2020) Performed for 22 weeks gestation of ([facility]) * ANTIBODY SCREEN(Performed 08/18/2020) Performed for 22 weeks gestation of ([facility]) * GLUCOSE CHALLENGE(Performed 08/18/2020) Performed for 22 weeks gestation of ([facility]) * PROTEIN CREATININE RATIO URINE RANDOM PNL(Performed 07/31/2020) Performed for with one fetus, antepartum ([facility]) * URIC ACID BLOOD(Performed 07/31/2020) Performed for with one fetus, antepartum ([facility]) * COMPREHENSIVE METABOLIC PANEL(Performed 07/31/2020) Performed for with one fetus, antepartum ([facility]) * CBC W AUTO DIFFERENTIAL(Performed 07/31/2020) Performed for with one fetus, antepartum ([facility]) * US OB FOLLOWUP(Performed 07/14/2020) Performed for 20 weeks gestation of ([facility]) * US OB ANOMALY(Performed 07/13/2020) Performed for 17 weeks gestation of ([facility]) * ALPHA FETOPROTEIN BLOOD MATERNAL QUAD PANEL(Performed 06/09/2020) Performed for 17 weeks gestation of ([facility]) * US OB TRANSVAGINAL(Performed 04/07/2020) Performed for Amenorrhea * PAP IG LB CT+GC+TV RFLX HPV HR ASCU(Performed 03/31/2020) Performed for Amenorrhea * HIV-1 HIV-2 ANTIBODY + HIV P24 AG PANEL(Performed 03/31/2020) Performed for Amenorrhea * CYSTIC FIBROSIS MUTATION PANEL(Performed 03/31/2020) Performed for Amenorrhea * VITAMIN D 25-HYDROXY(Performed 03/31/2020) Performed for Amenorrhea * TSH(Performed 03/31/2020) Performed for Amenorrhea * T4 FREE(Performed 03/31/2020) Performed for Amenorrhea * RUBELLA ANTIBODY IGG(Performed 03/31/2020) Performed for Amenorrhea * RPR(Performed 03/31/2020) Performed for Amenorrhea * BLOOD TYPE RH ONLY(Performed 03/31/2020) Performed for Amenorrhea * BLOOD TYPE ABO ONLY(Performed 03/31/2020) Performed for Amenorrhea * ANTIBODY SCREEN(Performed 03/31/2020) Performed for Amenorrhea * PROGESTERONE(Performed 03/31/2020) Performed for Amenorrhea * HEPATITIS B SURFACE ANTIGEN W RFLX CONFIRMATION(Performed 03/31/2020) Performed for Amenorrhea * HCG BETA BLOOD QUANTITATIVE(Performed 03/31/2020) Performed for Amenorrhea * CBC W AUTO DIFFERENTIAL(Performed 03/31/2020) Performed for Amenorrhea * CULTURE URINE(Performed 03/31/2020) Performed for Amenorrhea * URINALYSIS AUTO - POINT OF CARE(Performed 03/31/2020) Performed for Amenorrhea Results * (ABNORMAL) IRON + TIBC + FERRITIN (02/29/2024 2:06 PM CDT) Only the most recent of2 resultswithin the time period is included. Iron 47 40 - 190 mcg/dL [facility] TIBC 388 250 - 450 mcg/dL (calc) [facility] % Saturation 12(L) 16 - 45 % (calc) [facility] Ferritin 17 16 - 154 ng/mL [facility] Comment: Test Performed at: [employer] [id number] [facility] [place] [address] ADRIANNE ORTIZ MD Blood BLOOD SPECIMEN / Unknown 02/29/2024 2:06 PM CDT 02/29/2024 2:07 PM CDT Susana Brooks APRN-PRICE CHANGER LAB - CHEMISTR Y ORDERABLES Performing Organization Address [facility] [place] [address] * RHEUMATOID FACTOR BLOOD QUANTITATIVE (RF) (02/29/2024 2:06 PM CDT) Rheumatoid Factor <10 <14 IU/mL [facility] Comment: Test Performed at: [employer] [address] [place] [address] ADRIANNE ORTIZ MD Blood BLOOD SPECIMEN / Unknown 02/29/2024 2:06 PM CDT 02/29/2024 2:07 PM CDT Susana Brooks APRN-PR[facility]ER LAB - CHEMISTR Y ORDERABLES Performing Organization Address [facility] [place] [address] * C-REACTIVE PROTEIN (CRP) (02/29/2024 2:06 PM CDT) C-Reactive Protein 6.7 <8.0 mg/L [facility] Comment: Test Performed at: [employer] [facility] [place] [address] ADRIANNE ORTIZ MD Blood BLOOD SPECIMEN / Unknown 02/29/2024 2:06 PM CDT 02/29/2024 2:07 PM CDT Darcee B Brooks CANDY CATCHER-[facility] LAB - CHEMISTR Y ORDERABLES Performing Organization Address [facility] de Phone Number [facility] [address] [place] [address] * JUAN JOSE BLOOD SCREEN W/REFLEX TITER (02/29/2024 2:06 PM CDT) Pathologist [facility] JUAN JOSE Screen NEGATIVE NEGATIVE [facility] Comment: JUAN JOSE IFA is a first line screen for detecting the presence of up to approximately 150 autoantibodies in various autoimmune diseases. A negative JUAN JOSE IFA result suggests an JUAN JOSE-associated autoimmune disease is not present at this time, but is not definitive. If there is high clinical suspicion for Sjogren's syndrome, testing for anti-SS-A/Ro antibody should be considered. Anti-Padmini-1 antibody should be considered for clinically suspected inflammatory myopathies. AC-0: Negative International Consensus on JUAN JOSE Patterns (https://doi.org/10.1515/aqcl-6142-0253) For additional information, please refer to http://education.[employer]/faq/DDZ084 (This link is being provided for informational/ educational purposes only.) Test Performed at: [employer] [id number] [place] [address] ADRIANNE ORTIZ MD Blood BLOOD SPECIMEN / Unknown 02/29/2024 2:06 PM CDT 02/29/2024 2:07 PM CDT Susana Brooks CANDY CATCHER-[facility] - CHEMISTR Y ORDERABLES Performing Organization Address [facility] Co de Phone Number [facility] [address] [place] [address] * VITAMIN D 25-HYDROXY (02/29/2024 2:06 PM CDT) Only the most recent of3 resultswithin the time period is included. Pathologist [facility] Vitamin D, 25 Hydroxy 37 30 - 100 ng/mL [facility] Comment: Vitamin D Status 25-OH Vitamin D: Deficiency: <20 ng/mL Insufficiency: 20 - 29 ng/mL Optimal: > or = 30 ng/mL For 25-OH Vitamin D testing on patients on D2-supplementation and patients for whom quantitation of D2 and D3 fractions is required, the QuestAssureD() 25-OH VIT D, (D2,D3), LC/MS/MS is recommended: order code 16468 (patients >2yrs). See Note 1 Note 1 For additional information, please refer to http://education.[employer]/faq/SZY403 (This link is being provided for informational/ educational purposes only.) Test Performed at: [employer] [address] [place] [address] ADRIANNE ORTIZ MD Blood BLOOD SPECIMEN / Unknown 02/29/2024 2:06 PM CDT 02/29/2024 2:07 PM CDT Susana Brooks APRN-PR[facility] LAB - CHEMISTR Y ORDERABLES Performing Organization Address [facility] Co de Phone Number [facility] [address] [place] [address] * SED RATE AUTO (ESR) (02/29/2024 2:06 PM CDT) Pathologist [facility] Erythrocyte Sedimentation Rate Westergren 9 < OR = 20 mm/h [facility] Comment: Test Performed at: [employer] [id number] [place] [address] ADRIANNE ORTIZ MD Blood BLOOD SPECIMEN / Unknown 02/29/2024 2:06 PM CDT 02/29/2024 2:07 PM CDT Susana FIERRO LAB - HEMATOLO GY ORDERABLES Performing Organization Address [facility] [place] [address] * (ABNORMAL) CBC WITH DIFFERENTIAL (02/29/2024 2:06 PM CDT) Only the most recent of7 resultswithin the time period is included. Pathologist [facility] White Blood Cell Count 8.7 3.8 - 10.8 Thousand/u L [facility] RBC 4.74 3.80 - 5.10 Million/uL [facility] Hemoglobin 13.6 11.7 - 15.5 g/dL [facility] Hematocrit 42.1 35.0 - 45.0 % [facility] MCV 88.8 80.0 - 100.0 fL [facility] MCH 28.7 27.0 - 33.0 pg [facility] MCHC 32.3 32.0 - 36.0 g/dL [facility] Comment: For adults, a slight decrease in the calculated MCHC value (in the range of 30 to 32 g/dL) is most likely not clinically significant; however, it should be interpreted with caution in correlation with other red cell parameters and the patient's clinical condition. RDW 13.0 11.0 - 15.0 % [facility] Platelet Count 459(H) 140 - 400 Thousand/u L [facility] MPV 9.6 7.5 - 12.5 fL [facility] Neutrophil Absolute 5290 1500 - 7800 cells/uL [facility] Lymphocytes Absolute 2358 850 - 3900 cells/uL [facility] Absolute Monocytes 583 200 - 950 cells/uL [facility] Eosinophils Absolute 418 15 - 500 cells/uL [facility] Basophils Absolute 52 0 - 200 cells/uL [facility] Granulocytes % 60.8 % [facility] Lymphocytes % 27.1 % [facility] Monocytes % 6.7 % [facility] Eosinophils % 4.8 % [facility] Basophils % 0.6 % [facility] Comment: Test Performed at: [place] [address] ADRIANNE ORTIZ MD Blood BLOOD SPECIMEN / Unknown 02/29/2024 2:06 PM CDT 02/29/2024 2:07 PM CDT Susana Brooks CANDY CATCHER-[facility] - HEMATOLO GY ORDERABLES [facility] [address] [place] [address] * VITAMIN B12 FOLATE PANEL (02/29/2024 2:06 PM CDT) Only the most recent of2 resultswithin the time period is included. Vitamin B12 459 200 - 1100 pg/mL [facility] Folate 13.3 ng/mL [facility] Comment: Reference Range Low: <3.4 Borderline: 3.4-5.4 Normal: >5.4 Test Performed at: [employer] [place] [address] ADRIANNE ORTIZ MD Blood BLOOD SPECIMEN / Unknown 02/29/2024 2:06 PM CDT 02/29/2024 2:07 PM CDT Susana Brooks CANDY CATCHER-[facility] LAB - CHEMISTR Y ORDERABLES Performing Organization Address [facility] Co de Phone Number [facility] [address] [place] [phone] * MAMMOGRAM (12/13/2023) Anatomical Region Laterality Modality Other 12/13/2023 Narrative 12/13/2023 Ordered by an unspecified provider. Scanned Document SCANNING ONLY * US THYROID (10/06/2023) Only the most recent of2 resultswithin the time period is included. Anatomical Region Laterality Modality Chest Ultrasound 10/06/2023 Anita Jalloh CANDY CATCHER-PRICE CHANGER US ORDERABLES * TSH REFLEX FREE T4 (09/11/2023 10:12 AM CDT) Pathologist [facility] TSH with Reflex FT4 1.35 mIU/L [facility] Comment: Reference Range > or = 20 Years 0.40-4.50 Ranges First trimester 0.26-2.66 Second trimester 0.55-2.73 Third trimester 0.43-2.91 Test Performed at: [employer] [address] [place] [address] ADRIANNE ORTIZ MD Blood BLOOD SPECIMEN / Unknown 09/11/2023 10:12 AM CDT 09/11/2023 10:13 AM CDT Susana Brooks CANDY CATCHER-[facility] LAB - CHEMISTR Y ORDERABLES Performing Organization Address City/[facility] Co de Phone Number [facility] [address] [place] [address] * THYROID AB PANEL (TPO AB+THYROGLOB AB) (09/11/2023 10:12 AM CDT) Only the most recent of2 resultswithin the time period is included. Thyroglobulin Antibody <1 < or = 1 IU/mL [facility] Thyroid Peroxidase TPO Antibody <1 <9 IU/mL [facility] Comment: Test Performed at: [employer] [address] [place] [address] LORA Chun ISAACS Blood BLOOD SPECIMEN / Unknown 09/11/2023 10:12 AM CDT 09/11/2023 10:13 AM CDT Susana Brooks CANDY CATCHER-[facility] LAB - CHEMISTR Y ORDERABLES [facility] [address] [place] [address] * COMPREHENSIVE METABOLIC PANEL (09/11/2023 10:12 AM CDT) Only the most recent of2 resultswithin the time period is included. Glucose 86 65 - 139 mg/dL [facility] Comment: Non-fasting reference interval BUN 12 7 - 25 mg/dL [facility] Creatinine 0.73 0.50 - 0.97 mg/dL [facility] eGFR by Cystatin C 112 > OR = 60 mL/min/1. 73m2 [facility] BUN/Creatinine Ratio SEE NOTE: 6 - 22 (calc) [facility] Comment: Not Reported: BUN and Creatinine are within reference range. Sodium 138 135 - 146 mmol/L [facility] Potassium 4.8 3.5 - 5.3 mmol/L [facility] Chloride 101 98 - 110 mmol/L [facility] CO2 28 20 - 32 mmol/L [facility] Calcium 9.8 8.6 - 10.2 mg/dL [facility] Protein Total 6.9 6.1 - 8.1 g/dL [facility] Albumin 4.4 3.6 - 5.1 g/dL [facility] Globulin Total 2.5 1.9 - 3.7 g/dL (calc) [facility] Albumin/Globulin Ratio 1.8 1.0 - 2.5 (calc) [facility] Bilirubin Total 0.4 0.2 - 1.2 mg/dL [facility] Alkaline Phosphatase 62 31 - 125 U/L [facility] AST 16 10 - 30 U/L [facility] ALT 16 6 - 29 U/L [facility] Comment: Test Performed at: [employer] [address] [place] [address] ADRIANNE ORTIZ MD Blood BLOOD SPECIMEN / Unknown 09/11/2023 10:12 AM CDT 09/11/2023 10:13 AM CDT Susana Brooks CANDY CATCHER-PRICE CHANGER LAB - CHEMISTR Y ORDERABLES [facility] [address] [place] [address] * HEMOGLOBIN A1C - POINT OF CARE (HgbA1C) (09/11/2023 9:52 AM CDT) Hemoglobin A1c POCT 5.6 % [facility] Expiration Date [id number] [facility] Lot # [id number] [facility] QC Verified Yes Yes [facility] Blood BLOOD SPECIMEN / Unknown 09/11/2023 9:52 AM CDT Susana Brooks CANDY CATCHER-PRICE CHANGER LAB - POINT OF CARE ORDERABLES Performing Organization Address [facility] Co de Phone Number [facility] [address], [place] [address], [facility] [phone] * IMAGING RADIOLOGY XRAY RESULTS ORDER (07/07/2023) Anatomical Region Laterality Modality Other 07/07/2023 Narrative 07/07/2023 Ordered by an unspecified provider. Scanned Document IMAGING * (ABNORMAL) STREP A SCREEN - POINT OF CARE (AMB) (06/27/2023 4:01 PM [facility]) Only the most recent of2 resultswithin the time period is included. Strep A Rapid POCT Positive(A) Negative [facility] Strep A Internal Control Present [facility] Other ENTIRE THROAT (SURFACE REGION OF NECK) / Unknown 06/27/2023 4:01 PM [facility] Susana Brooks APRN-PR[facility]ER LAB - POINT OF CARE ORDERABLES Performing Organization Address City/[facility]/ZIP Co de Phone Number [facility] [address], [address] [place] [address], [facility] [phone] * T3 FREE (04/24/2023 12:23 PM [facility] LINER) Pathologist [facility] T3 Free 3.4 2.3 - 4.2 pg/mL [facility] Comment: Test Performed at: [employer] [facility] [place] [address] ADRIANNE ORTIZ MD Blood BLOOD SPECIMEN / Unknown 04/24/2023 12:23 PM [facility]ER 04/24/2023 12:24 PM [facility] Susana Brooks APRN-PRICE [facility]ER LAB - CHEMISTR Y ORDERABLES Performing Organization Address [facility] Co de Phone Number [facility] [phone] [place] [address] * TSH (04/24/2023 12:23 PM [facility]ER) Only the most recent of2 resultswithin the time period is included. [facility] TSH 1.48 mIU/L [facility] Comment: Reference Range > or = 20 Years 0.40-4.50 Ranges First trimester 0.26-2.66 Second trimester 0.55-2.73 Third trimester 0.43-2.91 Test Performed at: [employer] [facility] [place] [address] ADRIANNE ORTIZ MD Blood BLOOD SPECIMEN / Unknown 04/24/2023 12:23 PM [facility]ER 04/24/2023 12:24 PM [facility] Susana Brooks APRN-PRICE CH[facility]ER LAB - CHEMISTR Y ORDERABLES Performing Organization Address [facility] [place] [address] * T4 FREE (04/24/2023 12:23 PM [facility]RI[facility] LINER) Only the most recent of2 resultswithin the time period is included. Pathologist [facility] T4 Free 1.1 0.8 - 1.8 ng/dL [facility] Comment: Test Performed at: [employer] [address] [place] [address] ADRIANNE ORTIZ MD Blood BLOOD SPECIMEN / Unknown 04/24/2023 12:23 PM [facility]ER 04/24/2023 12:24 PM [facility] Susana Brooks CANDY CATCHER-PRICE CHANGER LAB - CHEMISTR Y ORDERABLES Performing Organization Address [facility] [place] [address] * T4 TOTAL (04/24/2023 12:23 PM [facility] LINER) Pathologist [facility] T4 Total 7.4 5.1 - 11.9 mcg/dL [facility] Comment: Test Performed at: [place] [address] ADRIANNE ORTIZ MD Thyroxine Free Index [facility] Comment: Test Performed at: [employer] [place] [address] ADRIANNE ORTIZ MD Blood BLOOD SPECIMEN / Unknown 04/24/2023 12:23 PM [facility] 04/24/2023 12:24 PM [facility] Susana Brooks APRN-PRICE CHANGER LAB - CHEMISTR Y ORDERABLES Performing Organization Address [facility] Co de Phone Number [facility] [phone] [place] [address] * T3 TOTAL (04/24/2023 12:23 PM [facility]) [facility] T3 Total 130 76 - 181 ng/dL [facility] Comment: Test Performed at: [place] [address] ADRIANNE ORTIZ MD Blood BLOOD SPECIMEN / Unknown 04/24/2023 12:23 PM [facility]ER 04/24/2023 12:24 PM [facility] Susana Brooks CANDY CATCHER-PRICE CHANGER LAB - CHEMISTR Y ORDERABLES Performing Organization Address City/[facility] Co de Phone Number [facility] [phone] [place] [address] * SCREEN (11/11/2020 8:31 AM CDT) [facility] Screen Qualitative NEG 11/11/2020 11:17 AM CDT [facility] BLOOD BANK LAB Blood Bank BLOOD SPECIMEN / Unknown Lab Venipuncture / Unknown 11/11/2020 8:31 AM CDT 11/11/2020 8:34 AM CDT Donny Braden MD LAB - BLOOD BANK OR DERABLES [facility] [address] [place] [address], [facility] [phone] * PATHOLOGY TISSUE EXAM (STL) (11/10/2020 12:59 PM CDT) Case Report Surgical Pathology Report Case: [id number] Authorizing Provider: Donny Braden MD Collected: 11/10/2020 12:59 PM Ordering Location: [facility] Received: 11/11/2020 07:47 AM Pathologist: Perla Mccann MD Specimen: Placenta 11/18/2020 11:49 AM CDT [facility] Final Diagnosis 1. Placenta, delivery: -- Third trimester placenta, 611g -- No evidence of villitis -- Small area of perivillous thrombi (less than 5% of the total placental parenchyma) -- Acute chorioamnionitis, focal mild -- 3-vessel umbilical cord with no evidence of vasculitis or funisitis SSD 11/18/2020 11:49 AM CDT [facility] Gross Description A. Received in formalin labeled [facility], placenta for pathology, is a 22 x 16 x 4 cm placenta with an attached 36 cm in length x 1.3 cm in average diameter white-gallegos, trivascular umbilical cord that inserts centrally approximately 4.5 cm from the nearest disc margin. The umbilical cord has a true knot. The membranes are thin and semi translucent. The surface has the normal arborizing vasculature pattern. The placenta weighs 611 g. The maternal surface is red-brown with well-formed cotyledons and grossly appears complete. The specimen is sectioned to show a 1 cm in greatest dimension pale gallegos, firm, plaque-like area that is abutting the surface, centrally located. There is a 1 x 1 x 0.5 cm area of red-brown, possible hemorrhage that is centrally located and is 0.2 cm from the maternal surface. [employer] Specialist sections are submitted as follows: A1 - umbilical cord and membranes A2 - plaque-like area and area of possible hemorrhage including maternal surface A3 - surface JI/ns 11/18/2020 11:49 AM T [facility] Microscopic Description Placental disc, membrane, and umbilical cord examined. 11/18/2020 11:49 AM T [facility] Disclaimer All histochemical and/or immunohistochemical results are interpreted with controls that demonstrate appropriate staining reactions before reporting results. Note on use of immunocytochemistry reagents: This test was developed and its performance characteristic determined by [facility], Department of Laboratory Medicine. It has not been cleared or approved by the U.S. Food and Drug Administration (FDA). The FDA has determined that such clearance or approval is not necessary. The test is used for clinical purpose. It should not be regarded as investigational or for research. This laboratory is certified to perform high complexity testing. The performance characteristics of the IHC/SCOOTER assays have been validated on formalin-fixed paraffin embedded tissues only. The assays have not been validated on decalcified tissues. Results should be interpreted with caution. 11/18/2020 11:49 AM T [facility] Embedded Images 11/18/2020 11:49 AM T [facility] Pathology/Cytolo gy ENTIRE PLACENTA / Unknown 11/10/2020 12:59 PM CDT 11/11/2020 7:47 AM CDT Donny Braden MD LAB - PATHOLOGY/CYT OLOGY ORDERABLES Performing Organization Address City/State/[facility] Co de Phone Number [facility] [address] [facility] [place] [address] * EPIDURAL BLOCK PERF (11/10/2020 3:31 AM CDT) Narrative Sawyer Norris DO - 11/10/2020 3:31 AM CDT Yenifer Thomas APRN-LIU 11/10/2020 3:33 AM Neuraxial Block Note Pre-Procedure: Procedure Name: Neuraxial Block Patient Location: OB Pre-Anesthetic Checklist: Patient identified, IV Checked, Risks and benefits discussed, Monitors and equipment, Site examined, Pre-op evaluation done, Time-out performed, Informed consent obtained, Questions answered/anesthesia questions answered and Allergies reviewed Anticoagulation/ Anti-thrombosis status confirmed? Yes Monitors: BP and continuous pluse ox Patient Condition: awake Patient Sedated? No Procedure: Block Type: Epidural Prep: Duraprep Sterile Field: mask, cap/hat, sterile established and sterile gloves Approach: midline Skin was localized? Yes Epidural Block: Needle Type: Tuohy Needle gauge: 17 G Needle length: 90 mm Placement Site: L3-L4 Number of Attempts: 1 Loss of Resistance: 5 Catheter length at skin (cm): 9 CSF Aspirated from catheter: No Blood Aspirated: No Test Dose: 3 mL at 11/10/2020 3:22 AM Test Dose Response: No Epidural Infusion Medications: Ropivacaine: 0.2% with Fentanyl 2mcg/mL in NS , 5 cc (mL) at 10 mL/hr Degree of difficulty: none Sensory Level: lower level Position post procedure: head of bed elevated 30 degrees, left uterine displacement Vital Signs: Vital signs monitored and stable throughout. See anesthesia record for details., heart tones monitored and stable throughout., Vital signs moniitored and stable throughout. See nursing vitals flowsheet for details. Staff: Anesthesia Provider: Yenifer Thomas APRN-ARMY RANGER - performed the procedure Sawyer Norris DO GENERAL ANESTHESIA ORDERABLES * BLOOD TYPE VERIFICATION (11/10/2020 1:20 AM CDT) ABO Rh A NEG 11/10/2020 2:0 3 AM CDT [facility] Blood Bank BLOOD SPECIMEN / Unknown Venipuncture / Unknown 11/10/2020 1:20 AM CDT 11/10/2020 1:26 AM CDT Donny Braden MD LAB - BLOOD BANK OR DERABLES [facility] [address] [place] [address], [facility] [phone] * TYPE + SCREEN PANEL (11/10/2020 12:25 AM CDT) ABO Rh A NEG 11/10/2020 1:16 AM CDT [facility] Comment:No history; collect retype. Antibody Screen NEG 1:16 AM CDT [facility] Blood Bank BLOOD SPECIMEN / Unknown Venipuncture / Unknown 11/10/2020 12:25 AM CDT 11/10/2020 12:27 AM CDT Donny Braden MD LAB - BLOOD BANK OR DERABLES [facility] [address]ita Hannah [address] [phone] * NONSTRESS TEST (10/30/2020) Scanned Document OB GYNE ORDERABLES * CULTURE STREP B (10/15/2020 2:33 PM CDT) Strep Group B Culture Negative Negative [facility] ACCOUNT BILL Comment: Centers for Disease Control and Prevention (CDC) and [place] Congress of Obstetricians and Gynecologists (ACOG) guidelines for prevention of group B streptococcal (GBS) disease specify co-collection of a vaginal and rectal swab specimen to maximize sensitivity of GBS detection. Per the CDC and ACOG, swabbing both the lower vagina and rectum substantially increases the yield of detection compared with sampling the vagina alone. . Penicillin G, ampicillin, or cefazolin are indicated for intrapartum prophylaxis of GBS colonization. Reflex susceptibility testing should be performed prior to use of clindamycin only on GBS isolates from penicillin-allergic women who are considered a high risk for anaphylaxis. Treatment with vancomycin without additional testing is warranted if resistance to clindamycin is noted. Microbiology MISCELLANEOUS SAMPLES / Unknown 10/15/2020 2:33 PM CDT 10/15/2020 Narrative Resulting Agency Comment Lab Testing performed at: [facility] [place] [address] [facility] [phone] Donny Braden MD LAB - MICROBIOLOGY ORDERABLES [facility] ACCOUNT BILL [address] [place] [address] * (ABNORMAL) URINALYSIS REFLEX MICROSCOPIC REFLEX CULTURE (09/29/2020 5:19 PM CDT) Color UA Yellow Straw, Yellow 09/29/2020 5:28 PM CDT [facility] Clarity UA Clear Clear 09/29/2020 5:28 PM CDT [facility] Glucose UA Negative Negative 09/29/2020 5:28 PM CDT [facility] Bilirubin UA Negative Negative 09/29/2020 5:28 PM CDT [facility] Ketone UA Trace(A) Negative 09/29/2020 5:28 PM CDT [facility] Specific Dougherty UA 1.017 1.005 - 1.030 09/29/2020 5:28 PM CDT [facility] Blood UA Negative Negative 09/29/2020 5:28 PM CDT [facility] pH UA 6.0 5.0 - 8.0 pH 09/29/2020 5:28 PM CDT [facility] Protein UA Negative Negative 09/29/2020 5:28 PM CDT [facility] Urobilinogen UA Negative Negative mg/dL 09/29/2020 5:28 PM CDT [facility] Nitrite UA Negative Negative 09/29/2020 5:28 PM CDT [facility] Leukocyte UA Negative Negative 09/29/2020 5:28 PM CDT [facility] Urine Microscopy Urine microscopy not indicated 09/29/2020 5:28 PM CDT [facility] Reflex Status Culture not indicated 09/29/2020 5:28 PM T [facility] Urine URINE SPECIMEN OBTAINED BY CLEAN CATCH PROCEDURE / Unknown Collection / Unknown 09/29/2020 5:19 PM CDT 09/29/2020 5:23 PM CDT Narrative [facility] - 09/29/2020 5:28 PM CDT Donny Sharpe MD LAB - URINALYSIS ORD ERABLES [facility] [address] [place] [address] * (ABNORMAL) GTT 3 HR (100G) GESTATIONAL DIAGNOSTIC (08/24/2020 8:29 AM CDT) Glucose Fasting Gest Tolerance 80 65 - 94 mg/dL [facility] ACCOUNT BILL GTT1Hr 196(H) 65 - 179 mg/dL [facility] ACCOUNT BILL Glucose - 2 hour 146 65 - 154 mg/dL [facility] ACCOUNT BILL GTT 3Hr 56(L) 65 - 139 mg/dL [facility] ACCOUNT BILL Note [facility] ACCOUNT BILL Comment: For diagnosis of gestational diabetes, at least two values must meet or exceed normal limits, which is based on 100 gm of oral glucose challenge. FASTING Blood BLOOD SPECIMEN / Unknown 08/24/2020 8:29 AM CDT 08/24/2020 Narrative Resulting Agency Comment Lab Testing performed at: [facility] [place] [address] [facility] [phone] Donny Braden MD LAB - CHEMISTRY ORD ERABLES Performing Organization Address City/[facility]/ZIP Co de Phone Number [facility] ACCOUNT BILL [address] [place] [address] * ANTIBODY SCREEN (08/18/2020 10:27 AM CDT) Only the most recent of2 resultswithin the time period is included. Antibody Screen Negative Negative [facility] ACCOUNT BILL Blood BLOOD SPECIMEN / Unknown 08/18/2020 10:27 AM CDT 08/18/2020 Narrative Resulting Agency Comment Lab Testing performed at: [employer] [address] [place] [address] [phone] Donny Braden MD LAB - BLOOD BANK OR DERABLES Performing Organization Address City/[facility] Co de Phone Number [facility] ACCOUNT BILL [address] [place] [address] * (ABNORMAL) GLUCOSE CHALLENGE (08/18/2020 10:27 AM CDT) GTT 1Hr 146(H) 65 - 139 mg/dL [facility] ACCOUNT BILL Comment: According to ADA, a glucose threshold of >139 mg/dL after 50-gram load identifies approximately 80% of women with gestational diabetes mellitus, while the sensitivity is further increased to approximately 90% by a threshold of >129 mg/dL. Blood BLOOD SPECIMEN / Unknown 08/18/2020 10:27 AM CDT 08/18/2020 Narrative Resulting Agency Comment Lab Testing performed at: [facility] [place] [address] [facility] [phone] Donny Braden MD LAB - CHEMISTRY ORD ERABLES [facility] [place] [address] [place] [address] * URIC ACID BLOOD (07/31/2020 1:19 PM CDT) Uric Acid 4.4 2.6 - 6.0 mg/dL 07/31/2020 2:10 PM CDT [facility] Blood BLOOD SPECIMEN / Unknown Venipuncture / Unknown 07/31/2020 1:19 PM CDT 07/31/2020 1:31 PM CDT Fátima Chambers MD LAB - CHEMISTRY ORD ERABLES Performing Organization Address [facility] Co de Phone Number [facility] [address] [address] * PROTEIN CREATININE RATIO URINE RANDOM PNL (07/31/2020 1:19 PM CDT) Protein Urine <6.8 <11.9 mg/dL 07/31/2020 1:52 PM CDT [facility] Creatinine Urine 46.70 mg/dL 07/31/2020 1:52 PM CDT [facility] Protein/Creatin ine Ratio Urine 07/31/2020 1:52 PM CDT [facility] Comment:Unable to calculate due to limited levels of measurable protein. Urine URINE SPECIMEN OBTAINED BY CLEAN CATCH PROCEDURE / Unknown Collection / Unknown 07/31/2020 1:19 PM CDT 07/31/2020 1:31 PM CDT Fátima Chambers MD LAB - URINE MARINE ERECTOR RY ORDERABLES [facility] [address] [phone] * US OB FOLLOWUP (07/14/2020 2:20 PM WRIST LINER) Anatomical Region Laterality Modality Abdomen, Pelvis Ultrasound Narrative 07/14/2020 2:20 PM WRIST LINER Donny Braden MD 07/24/2020 8:19 AM [facility] [employer] PALL MALL OB ULTRASOUND - Limited Pt. Name: Shirlene Johnson is a 30 year old : 1990 LMP: Patient's last menstrual period was 02/07/2020. BMI: 32.54 kg/m2 Exam Date: 07/14/2020 Latex Allergy: No Referring Physician: Morris Braden MD Reason for Scan: Complete anomaly screen Transabdominal: Yes Transvaginal: No Gestational age: 22 wks 4 days Presentation: cephalic Cardiac Motion: Yes FHR: 140 bpm Placenta location: anterior CPT: 20936 Hand Fur Cleaner comments: RVOT, LVOT, 4ch heart, diaphragm and profile were visualized. Anomaly screen is complete. Physician Interpretation: Completed anomaly screen Hand Fur Cleaner: Wendy Carlos RDMS, RT(R) Images will be scanned into the record. Interpreting Physician: Morris Braden MD Donny Braden MD US ORDERABLES * US OB ANOMALY (07/13/2020 5:19 PM WRIST LINER) Anatomical Region Laterality Modality Pelvis Ultrasound Narrative 07/13/2020 5:19 PM WRIST LINER Wendy Carlos 07/13/2020 5:47 PM [facility] [employer] OB ULTRASOUND - ANOMALY SCREEN Pt. Name: Shirlene Johnson is a 30 year old : 1990 LMP: Patient's last menstrual period was 02/07/2020. BMI: 35.54 kg/m2 Exam Date: 07/02/2020 Referring Physician: Morris Braden MD Reason for Scan: Anomaly screen Transabdominal: Yes Transvaginal: No Gestational age: 20 wks 6 days Gestational age by today's U/S: 20 wks 3 days Presentation: cephalic FHR: 127 bpm Cervical Length: 4.04 cm BPD: 4.40 cm consistent with 19 wks 2 days, 4.2% OFD: 6.21 cm HC: 17.07 cm consistent with 19 wks 5 days, 4.7% AC: 16.28 cm consistent with 21 wks 2 days, 60.1% FL: 3.60 cm consistent with 21 wks 3 days, 60.9% CEREB: 2.02 cm NF: 4.93 mm CI: 71 % WNL HC/AC: 1.05 WNL EFW: 0 lbs 14 oz. 59.0 % Placenta location: anterior Placental grade: 1 AFV: WNL UCI S 3 VC S Cranial Anatomy: S Cerebellum: S Cho Plexus: S CSP: S Profile: N Eyes: S Nose/mouth: S Stomach: S Diaphragm: N Kidneys: S Bladder: S Spine: S Upper Extremeties: S Lower Extremeties: S Situs: S 4 Chamber Heart: N LVOT: N RVOT: N Gender: female (Johnson: S = Seen, N = Not Seen, U = Unsatisfactory) CPT: 90142 Hand Fur Cleaner comments: Incomplete anomaly screen due to position. Physician Interpretation: Incomplete anomaly screen Hand Fur Cleaner: Wendy Carlos RDMS, RT(R) Images will be scanned into the record. Interpreting Physician: Morris Braden MD Donny Braden MD ORDERABLES * ALPHA FETOPROTEIN BLOOD MATERNAL QUAD PANEL (06/09/2020 2:16 PM WRIST LINER) Results Report [facility] ACCOUNT BILL Test Results *Screen Negative* [facility] ACCOUNT BILL Gestational Age Weeks 17.6 WEEKS [facility] ACCOUNT BILL Gestational Age Based On As provided [facility] ACCOUNT BILL [age] [facility] ACCOUNT BILL Race [facility] ACCOUNT BILL Weight 209 lbs [facility] ACCOUNT BILL Insulin Dependent Diabetes No [facility] ACCOUNT BILL Multiple Gestation No [facility] ACCOUNT BILL Alpha-Fetoprotein Value (EIA) 42.6 ng/mL [facility] ACCOUNT BILL AFP MoM Value 1.27 [facility] ACCOUNT BILL hCG Value 20,009 mIU/mL [facility] ACCOUNT BILL hCG Mom 0.83 [facility] ACCOUNT BILL Estriol Value 1.35 ng/mL [facility] ACCOUNT BILL Estriol MoM 1.09 [facility] ACCOUNT BILL CECE Value 120.75 pg/mL [facility] ACCOUNT BILL Cece MoM Value 0.90 [facility] ACCOUNT BILL OSBR Risk 1 IN 5,251 [facility] ACCOUNT BILL DSR (2nd Trimester) 1 IN 9,692 [facility] ACCOUNT BILL DSR (By Age) 1 IN 741 [facility] ACCOUNT BILL T18 Risk Not increased [facility] ACCOUNT BILL T18 (by Age) 1:2885 [facility] ACCOUNT BILL Interpretation [facility] ACCOUNT BILL Comment: Interpretation: Screen Negative This result is screen negative for OSB, Down Syndrome and Trisomy 18. The AFP MoM and patient specific risks calculated are based on the gestational age and the clinical information provided. This test can identify up to 80% of open neural tube defects. Closed neural tube defects and some open defects may not be detected by this test. The combination of maternal age, AFP, hCG, uE3, and CECE identifies 75-80% of Down Syndrome. The combination of maternal age, AFP, hCG and uE3 identifies 60% of Trisomy 18 pregnancies. The [place] [employer] recommends amniocentesis be offered to women age 35 and older. Recalculations are not recommended when gestational dating by LMP and ultrasound are within 10 days. Comments [facility] ACCOUNT BILL Comment: Evita Zazueta, Ph.D., [facility] Director . References: Available Upon Request. . Multiples Of Median Cutoffs Abbreviation Definitions For AFP Elevations IDD- Insulin Dep Diabetes Dowell 2.5 Black 2.8 OSBR- Open Spina Bifida IDD 2.0 Twins 4.5 Risk DSR Cutoff 1:270 DSR- Down Syndrome Risk T18 Cutoff 1:100 T18- Trisomy 18 . Down Syndrome and Trisomy 18 screening are considered Investigational . For further inquiries contact [facility] at [phone]. Blood BLOOD SPECIMEN / Unknown 06/09/2020 2:16 PM WRIST LINER 06/09/2020 Narrative Resulting Agency Comment Lab Testing performed at: [facility] [address] [place] [id number] Donny Braden MD LAB - CHEMISTRY ORD ERABLES [facility] ACCOUNT BILL [address] [place] [address] * US OB TRANSVAGINAL (04/07/2020 10:31 AM WRIST LINER) Anatomical Region Laterality Modality Pelvis, Abdomen Ultrasound Narrative 04/07/2020 10:31 AM WRIST LINER Donny Braden MD 04/07/2020 10:53 AM [facility] [employer] P[employer] MALL OB ULTRASOUND - < 14 WEEKS Pt. Name: Shirlene Johnson is a 29 year old : 1990 LMP: Patient's last menstrual period was 02/07/2020. BMI: 31.02 kg/ m2 Latex Allergy: No Exam Date: 04/07/2020 Referring Physician: Morris Braden Reason for Scan: Dates / viability Transabdominal: No Transvaginal: Yes Gestational age: 8 wks 4 days Gestational age by today's U/S: 8 wks 1 days # Single IUP Yolk Sac: seen CRL: 1.70 cm consistent with 8 wks 1 days FHR: 173 bpm Cervical length: 4.52 cm Left Ovary: Unable to visualize due to bowel gas Right Ovary: Length 2.16 cm. Width 1.89 cm. Height 1.81 cm. Volume 3.869 cc CPT: 04248 Hand Fur Cleaner comments: Right ovarian complex mass, 1.1cm Physician Interpretation: Viable IUP Hand Fur Cleaner: Wendy Carlos [facility], RT(R) Images will be scanned into the record. Interpreting Physician: Morris Braden Procedure Note Wendy Carlos - 04/07/2020 10:31 AM CST [facility] [employer] TARAS OB ULTRASOUND - < 14 WEEKS Pt. Name: Shirlene Johnson is a 29 year old : 1990 LMP: Patient's last menstrual period was 02/07/2020. BMI: 31.02 kg/ m2 Latex Allergy: No Exam Date: 04/07/2020 Referring Physician: Morris Braden Reason for Scan: Dates / viability Transabdominal: No Transvaginal: Yes Gestational age: 8 wks 4 days Gestational age by today's U/S: 8 wks 1 days # Single IUP Yolk Sac: seen CRL: 1.70 cm consistent with 8 wks 1 days FHR: 173 bpm Cervical length: 4.52 cm Left Ovary: Unable to visualize due to bowel gas Right Ovary: Length 2.16 cm. Width 1.89 cm. Height 1.81 cm. Volume 3.869 cc CPT: 86607 Hand Fur Cleaner comments: Right ovarian complex mass, 1.1cm Physician Interpretation: Viable IUP Hand Fur Cleaner: Wendy Carlos RDMS, RT(R) Images will be scanned into the record. Interpreting Physician: Morris Braden Donny Braden MD US ORDERABLES * PAP IG LB CT+GC+TV RFLX HPV HR ASCU (03/31/2020 12:09 PM WRIST LINER) Diagnosis [facility] ACCOUNT BILL Comment:NEGATIVE FOR INTRAEP ITHELIAL LESION OR MALIGNANCY. Specimen Adequacy [facility] ACCOUNT BILL Comment:Satisfactory for addy luation. No endocervical component is identified. Clinician Provided ICD10 [facility] ACCOUNT BILL Comment:N91.2 Performed by [facility] ACCOUNT BILL Comment:Rico Harper chnologist (ASCP) Comment . [facility] ACCOUNT BILL [...] UTERINE CERVIX / Unknown 03/31/2020 12:09 PM WRIST LINER 03/31/2020 Narrative [facility] ACCOUNT BILL - 04/02/2020 3:08 PM WRIST LINER Source.............Cervix;Endocervix No. of containers..01 ThinPrep Vial Resulting Agency Comment Lab Testing performed at: [address] [phone] Donny Braden MD LAB - PATHOLOGY/CYT OLOGY ORDERABLES [facility] ACCOUNT BILL [address] [place] [address] * HIV-1 HIV-2 ANTIBODY + HIV P24 AG PANEL (03/31/2020 11:55 AM WRIST LINER) HIV Screen 4th Generation w Reflex Non Reactive Non Reactive [facility] ACCOUNT BILL Blood BLOOD SPECIMEN / Unknown 03/31/2020 11:55 AM WRIST LINER 03/31/2020 Narrative Resulting Agency Comment Lab Testing performed at: [facility] [place] [address] [facility] [phone] Donny Braden MD LAB - CHEMISTRY ORD ERABLES [facility] ACCOUNT BILL [address] [place] [address] * RPR (03/31/2020 11:54 AM WRIST LINER) RPR Non Reactive Non Reactive [facility] ACCOUNT BILL Blood BLOOD SPECIMEN / Unknown 03/31/2020 11:54 AM WRIST LINER 03/31/2020 Narrative Resulting Agency Comment Lab Testing performed at: [facility] [place] [address] [facility] [phone] Donny Braden MD LAB - CHEMISTRY ORD ERABLES [facility] ACCOUNT BILL [address] [place] [address] * RUBELLA ANTIBODY IGG (03/31/2020 11:54 AM WRIST LINER) Rubella Antibody 1.18 Immune >0.99 index [facility] ACCOUNT BILL Comment: Non-immune <0.90 Equivocal 0.90 - 0.99 Immune >0.99 Blood BLOOD SPECIMEN / Unknown 03/31/2020 11:54 AM WRIST LINER 03/31/2020 Narrative Resulting Agency Comment Lab Testing performed at: [facility] [place] [address] [facility] [phone] Donny Braden MD LAB - SEROLOGY ORDE TRINA [facility] ACCOUNT BILL [address] [address] * (ABNORMAL) CYSTIC FIBROSIS MUTATION PANEL (03/31/2020 11:54 AM WRIST LINER) [facility] Cystic Fibrosis Screen CARRIER(A ) [facility] ACCOUNT BILL Comment: 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 This result should be interpreted in the context of the clinical indication. COMMENTS: Genetic counseling is recommended to discuss the potential clinical and/or reproductive implications of this result, as well as recommendations for testing other family members and, when applicable, this individual's partner. The detection rate varies with ethnicity, and the presence of a second, undetected mutation in the CF gene cannot be ruled out. Mutation Detection Detection rates are based on mutation Rates among Ethnic frequencies in patients affected with Groups cystic fibrosis. Among individuals with an atypical or mild presentation (e.g. congenital absence of the vas deferens, pancreatitis) detection rates may vary from those provided here: Detection Ethnicity Rate Ashkenazi 97% Yarsani 90% (non-) -Salv[place]orean 69% 73% 55% This interpretation is based on the clinical and family relationship information provided and the current understanding of the molecular genetics of this condition. MUTATIONS ANALYZED: G85E V520F [id number] 2183AA to G R117H G542X C4289C 2184delA R334W S549N 394delTT 2789+5G to A R347H S549R 621+1G to T 3120+1G to A R347P G551D 711+1G to T 3659delC A455E R553X 1078delT 3849+10kbC to T WjyzbT450 R560T 1717-1G to A 3876delA JaayxH849 R2112J 1898+1G to A 3905insT METHODS/LIMITATIONS: DNA is isolated from the sample and tested for the 32 CF mutations on the [employer] Array Platform ([employer]). Regions of the CFTR gene are amplified enzymatically and subjected to a solution-phase multiplex allele-specific primer extension with subsequent hybridization to a bead array and fluorescence detection. Polymorphisms F508C, I506V and I507V are included in this panel to rule out false positive [id number] homozygotes. Reflex testing of 5T is included in the panel for R117H interpretation. False positive or negative results may occur for reasons that include genetic variants, blood transfusions, bone marrow transplantation, erroneous representation of family relationships or contamination of a sample with maternal cells. REFERENCES: 1. Updates on Carrier Screening for Cystic Fibrosis. (2011) Am J Ob Gynecol 117(4):1699-5252 2. Jean et al. (2004) Era Med 6:387-91 3. Deion et al. (2002) Era Med 4:379-391 4. Preconception and carrier screening for cystic fibrosis: (2001)ACOG.ACMG publication Results Released By: Vania Morris, Ph.D., Technical Operator Released By: Iris Nathan, MS, [facility], Genetic Counselor Comment [facility] ACCOUNT BILL Comment: The assay provides information intended to be used for carrier screening in adults of reproductive age, as an aid in screening, and as a confirmatory test for another medically established diagnosis in newborns and children. The test is not indicated for use in diagnostic testing, pre-implantation screening, or for any stand-alone diagnostic purposes without confirmation by another medically established diagnostic product or procedure. Blood BLOOD SPECIMEN / Unknown 03/31/2020 11:54 AM WRIST LINER 03/31/2020 Narrative Resulting Agency Comment Lab Testing performed at: [facility] [address] [facility] [id number] Donny Braden MD LAB - HEMATOLOGY OR DERABLES [facility] ACCOUNT BILL [address] [place] [address] * PROGESTERONE (03/31/2020 11:53 AM WRIST LINER) Progesterone 12.6 ng/mL [facility] ACCOUNT BILL Comment: Follicular phase 0.1 - 0.9 Luteal phase 1.8 - 23.9 Ovulation phase 0.1 - 12.0 First trimester 11.0 - 44.3 Second trimester 25.4 - 83.3 Third trimester 58.7 - 214.0 Postmenopausal 0.0 - 0.1 Blood BLOOD SPECIMEN / Unknown 03/31/2020 11:53 AM WRIST LINER 03/31/2020 Narrative Resulting Agency Comment [facility] [address] [facility] [id number] Donny Braden MD LAB - CHEMISTRY ORD ERABLES [facility] ACCOUNT BILL [address] [place] [address] * BLOOD TYPE ABO ONLY (03/31/2020 11:53 AM WRIST LINER) ABO A [facility] AC COUNT BILL Blood BLOOD SPECIMEN / Unknown 03/31/2020 11:53 AM WRIST LINER 03/31/2020 Narrative Resulting Agency Comment Lab Testing performed at: [facility] [place] [address] [facility] [id number] Donny Braedn MD LAB - BLOOD BANK OR DERABLES Performing Organization Address City/[facility] Co de Phone Number [facility] ACCOUNT BILL [address] [place] [address] * BLOOD TYPE RH ONLY (03/31/2020 11:53 AM WRIST LINER) Rh Type Negative [facility] ACCOUNT BILL Comment: Please note: Prior records for this patient's ABO / Rh type are not available for additional verification. Blood BLOOD SPECIMEN / Unknown 03/31/2020 11:53 AM WRIST LINER 03/31/2020 Narrative Resulting Agency Comment Lab Testing performed at: [facility] [address] [facility] [id number] Donny Braden MD LAB - BLOOD BANK OR DERABLES Performing Organization Address City/[facility]/ZIP Co de Phone Number [facility] ACCOUNT BILL [address] [place] [address] * HCG BETA BLOOD QUANTITATIVE (03/31/2020 11:53 AM WRIST LINER) hCG Value 70,799 mIU/mL [facility] ACCOUNT BILL Comment: Female (Non-) 0 - 5 (Postmenopausal) 0 - 8 . Female () Weeks of Gestation 3 6 - 71 4 10 - 750 5 069 - 9864 6 538 - 85413 7 1014 -415147 8 71153 -336643 9 38489 -[phone] 10 65709 -764677 12 35609 -628913 14 22265 - 84181 15 24132 - 53051 16 9637 - 09170 17 6375 - 51340 18 4872 - 21748 Results confirmed on dilution. Tevin ECLIA methodology Blood BLOOD SPECIMEN / Unknown 03/31/2020 11:53 AM WRIST LINER 03/31/2020 Narrative Resulting Agency Comment Lab Testing performed at: [facility] [address] [facility] [id number] Donny Braden MD LAB - CHEMISTRY ORD ERABLES [facility] ACCOUNT BILL [address] [place] [address] * HEPATITIS B SURFACE ANTIGEN W RFLX CONFIRMATION (03/31/2020 11:53 AM WRIST LINER) Hepatitis B Virus Surface Antigen Negative Negative [facility] ACCOUNT BILL Blood BLOOD SPECIMEN / Unknown 03/31/2020 11:53 AM WRIST LINER 03/31/2020 Narrative Resulting Agency Comment Lab Testing performed at: [facility] [place] [address] [facility] [id number] Donny Braden MD LAB - CHEMISTRY ORD ERABLES Performing Organization Address City/[facility] Co de Phone Number [facility] ACCOUNT BILL [address] [place] [address] * CULTURE URINE (03/31/2020 11:33 AM WRIST LINER) Pathologist [facility] Urine Culture Routine Final report [facility] ACCOUNT BILL Result 1 [facility] ACCOUNT BILL Comment: Mixed urogenital tramaine Less than 10,000 colonies/mL Urine MID-STREAM URINE SPECIMEN / Unknown 03/31/2020 11:33 AM WRIST LINER 03/31/2020 Narrative Resulting Agency Comment Lab Testing performed at: [facility] [place] [address] [facility] [id number] Donny Braden MD LAB - MICROBIOLOGY ORDERABLES Performing Organization Address City/[facility] Co de Phone Number [facility] ACCOUNT BILL [address] [address] * URINALYSIS AUTO - POINT OF CARE (03/31/2020) Clarity UA POCT Clear Color UA POCT Yellow Leukocyte UA 1+ Negative Nitrite UA POCT Negative Negative Urobilinogen UA 0.1 0.1 - 1.0 Protein UA POCT Trace Negative pH UA 6.3 5.0 - 8.0 pH units Blood UA Trace Negative Specific Dougherty UA POCT 1.025 1.002 - 1.030 Ketone UA Negative Negative Bilirubin UA POCT Negative Negative Glucose UA Negative Negative Urine URINE / Unknown 03/31/2020 Donny Braden MD LAB - POINT OF CARE ORDERABLES Care Teams Junior Media Buyer Relationship Specialty Start Date End Date Milan Pierce MD [address] [id number] PCP - General Family Medicine 04/25/23
--- OUTSIDE RECORDS SUMMARY | 2024-07-23 18:09 | XMS_ITS | Encounter Summary ---
Author Organization [facility] Address [facility] [place] [address] Care Team Providers Care Sanitation Superintendent Name Role Phone Yariel Gallegos MD Primary Care Provider Unavailable Miracle Colon MD Primary Care Provider None, Provider Primary Care Provider Unavaila Susana Lombardi NP Primary Care Provider [phone] Encounter Details Date Type Department Care Team (Late st Contact Info) Description 03/18/2017 Abstract [place] [address] Yariel Gallegos MD Social History Tobacco Use Types Packs/Day Years Used Date Smoking Tobacco: Never Assessed Comments Unknown Sex and Gender Information Value Date Recorded Sex Assigned at Not on file Legal Sex Female 7:50 PM CDT Gender Identity Not on file Sexual Orientation Not on file documented as of this encounter Plan of Treatment Not on file documented as of this encounter Visit Diagnoses Not on filedocumented in this encounter Care Teams Sanitation Superintendent Relationship Specialty Start Date End Date Yariel Gallegos MD PCP - General 06/02/15 [place] [address] [address] PCP - General INTERNAL MEDICINE 05/16/19 04/19/23 None, ProviderMD PCP - General UNKNOWN PHYSICIAN SPECIALTY 04/20/23 04/21/23 Susana Brooks, POWER [address] [address] PCP - General FAMILY PRACTICE 04/22/23 documented as of this encounter
== END 2024-07-23 16:28 | disposition home or self-care (01) ==
DX: R22.1 Localized swelling, mass and lump, neck (principal); E04.2 Nontoxic multinodular goiter
CPT/HCPCS: 76536

== ENCOUNTER 2025-01-24 08:45 | Outpatient (CLI) | payer OTHER, SELFPAY ==
--- NOTE | ~2025-01-24 | MM_ITS ---
EXAMINATION: MM screening alex BI w todd HISTORY: Screening TECHNIQUE: Craniocaudal and mediolateral oblique 3-D tomosynthesis images were obtained and synthetic 2-D images were generated. CAD analysis was submitted and interpreted. COMPARISON: 12/13/2023 BREAST PARENCHYMAL COMPOSITION: There are scattered areas of fibroglandular density. FINDINGS: There is no evidence of suspicious mass, calcification, or architectural distortion to suggest malignancy in either breast. IMPRESSION: 1. No mammographic evidence of malignancy. 2. Recommend routine screening mammography in one year. BI-RADS Category 1: Negative Reviewed, dictated and finalized at location B.
--- OUTSIDE RECORDS SUMMARY | 2025-01-24 08:56 | XMS_ITS | Clinical Summary ---
Author Organization [facility] Address [address] [place] [address] Care Team Providers Care Loan Interviewer Name Role Phone Milan Pierce MD Primary Care Provider [phone] Source Comments [facility],non-owned Affiliates and Associated Physician Practices is amultiple site organization consisting of ambulatory clinics and hospital sitesin [place], [place], [place] and [place]. This disclosure is being madepursuant to the Care Everywhere program and may not contain all information available regarding this patient. Last updated 18.[facility] Allergies No known active allergies Medications * This document contains information received from the source organization and may not represent a complete record from that organization. * Be aware that medications may not be up to date on this document. Alwaysverify current medications with the patient. escitalopram (Lexapro) 10 MG tabletIndication s:Anxiety and depression Take 1 (one) tablet by mouth once daily 30 tablet 2 4 Active phentermine (Adipex-P) 37.5 MG tabletIndication s:Class 1 obesity due to excess calories without serious comorbidity with body mass index (BMI) of 30.0 to 30.9 in adult Take 1 (one) tablet by mouth once daily 30 tablet 1 5 Active phentermine (Adipex-P) 37.5 MG tabletIndication s:Class 1 obesity due to excess calories without serious comorbidity with body mass index (BMI) of 30.0 to 30.9 in adult Take 1 (one) tablet by mouth once daily 30 tablet 1 5 01/01/20 25 Discontinu ed(Reorder ) Active Problems Problem Noted Date Diagnosed Date [...] Encounters Date Type Department Care Team Description 12/31/2024 9:15 AM CDT Clinical Support [facility] - Family Medicine [address] [place] [address], [address] [place] [address] Blood pressure check from Last 3 Months Immunizations Immunization Administration Dates Next Due DTP, HISTORIC VACCINE [...] Recorded Patient Health Questionnaire-2 Score 4 09/11/2023 Custer Depression Scale Answer Date Recorded Last EPDS Total Score Not on file 12/18/2020 The thought of harming myself has occurred to me . Never 12/18/2020 Comments No Sex and Gender Information Value Date Recorded Sex Assigned at Not on file Legal Sex Female 11:39 AM CDT Gender Identity Not on file Sexual Orientation Not on file Last Filed Vital Signs Vital Sign Reading Time Taken Comments Blood Pressure 114/76 12/31/2024 9:02 AM CDT Pulse 96 09/16/2024 1:29 PM CDT Temperature 36.4 C (97.5 F) 02/29/2024 1:31 PM CDT Respiratory Rate 20 05/11/2023 2:23 PM OPERATIONS LOGISTICS ANALYST Oxygen Saturation 98% 09/16/2024 1:29 PM CDT Inhaled Oxygen Concentration - - Weight 83.5 kg (184 lb) 12/31/2024 9:02 AM CDT Height 172.7 cm (5' 8) 10/22/2024 2:17 PM CDT Body Mass Index 27.98 10/22/2024 2:17 PM CDT Plan of Treatment Health Maintenance Due Date Last Done Comments HEPATITIS C SCREENING 04/29/2009 HEPATITIS B VACCINE (1 of 3 - 19+ 3-dose series) 2010 HPV VACCINE (1 - 3-dose SCDM series) 2018 DEPRESSION SCREENING 05/15/2024 06/27/2023, 04/24/20 23 COVID-19 VACCINE ( season) 2025 INFLUENZA VACCINE (#1) 2025 PAP SMEAR 07/07/2026 07/07/2023, 06/16, 07/07/2023 (Done Outside Per Report), Additional history exists DTAP/TDAP/TD VACCINES (8 - Td or Tdap) 08/28/2032 08/28/2022, 08/31/2020, 01/17/1997, Additional history exists ZOSTER VACCINE (1 of 2) 2041 HIB VACCINE Completed 01/22/1993, 12/14, 1991 HIV SCREENING Completed 03/31/2020 MENINGOCOCCAL (Group B) VACCINE SHARED DECISION-MAKING Aged Out No longer eligible based on patient's age to complete this topic MENINGOCOCCAL GROUPS A/C/Y/W VACCINE Aged Out No longer eligible based on patient's age to complete this topic PNEUMOCOCCAL VACCINE Aged Out No long er eligible based on patient's age to complete this topic Procedures Procedure Name Priority Date/Time Associated Diagnosis Comments PAP IG LB CT+GC+TV RFLX HPV HR ASCU Routine 03/31/2020 12:09 PM OPERATIONS LOGISTICS ANALYST Amenorrhea HIV-1 HIV-2 ANTIBODY + HIV P24 AG PANEL Routine 03/31/2020 11:55 AM OPERATIONS LOGISTICS ANALYST Amenorrhea from Last 3 Months or Most Recently Relevant to Health Maintenance Results * PAP IG LB CT+GC+TV RFLX HPV HR ASCU (03/31/2020 12:09 PM OPERATIONS LOGISTICS ANALYST) Diagnosis [facility] ACCOUNT BILL Comment:NEGATIVE FOR INTRAEP [...] UTERINE CERVIX / Unknown 03/31/2020 12:09 PM OPERATIONS LOGISTICS ANALYST 03/31/2020 Narrative [facility] ACCOUNT BILL - 04/02/2020 3:08 PM OPERATIONS LOGISTICS ANALYST Source.............Cervix;Endocervix No. of containers..01 ThinPrep Vial Resulting Agency Comment Lab Testing performed at: [facility] [id number] Donny Braden MD LAB - PATHOLOGY/CYTOLOGY OR DERABLES Final Result Performing Organization Address City/[facility]/ZIP Co de Phone Number [facility] ACCOUNT BILL [address] [place] [address] * HIV-1 HIV-2 ANTIBODY + HIV P24 AG PANEL (03/31/2020 11:55 AM OPERATIONS LOGISTICS ANALYST) HIV Screen 4th Generation w Reflex Non Reactive Non Reactive [facility] ACCOUNT BILL Blood BLOOD SPECIMEN / Unknown 03/31/2020 11:55 AM OPERATIONS LOGISTICS ANALYST 03/31/2020 Narrative Resulting Agency Comment [facility] [address] [facility] [id number] Donny Braden MD LAB - CHEMISTRY ORDERABLES Final Result [facility] ACCOUNT BILL [address] [place] [address] from Last 3 Months or Most Recently Relevant to Health Maintenance Insurance [facility] Advance Directives * Full Code (Latest Code Status on File) Date Activated Date Inactivated Comments 11/09/2020 11:18 PM 11/12/2020 1:30 PM Care Teams Loan Interviewer Relationship Specialty Start Date End Date Milan Pierce MD [address] [phone] PCP - General Family Medicine 04/25/23
--- OUTSIDE RECORDS SUMMARY | 2025-01-24 08:56 | XMS_ITS | Encounter Summary ---
Author Organization [facility] Address [address] [place] [address] Care Team Providers Care Ferryboat Helper Name Role Phone Miracle Colon MD Primary Care Provider [phone] Milan Pierce MD Primary Care Provider [phone] Encounter Details Date Type Department Care Team (Late st Contact Info) Description 06/20/2022 Telephone [facility] Women's Health Maternal & Care [address] [place] [address] Savannah Gamboa Social History Tobacco Use Types Packs/Day Years Used Date Smoking Tobacco: Never Smokeless Tobacco: Never Alcohol Use Standard Drinks/Week Comments Not Currently 0 (1 standard drink = 0.6 oz pur e alcohol) PHQ-2 Answer Date Recorded PHQ2 TOTAL SCORE 0 10/08/2020 Soldier Depression Scale Answer Date Recorded Last EPDS Total Score Not on file 12/18/2020 The thought of harming myself has occurred to me . Never 12/18/2020 Comments Yes Sex and Gender Information Value Date Recorded Sex Assigned at Not on file Legal Sex Female 11:39 AM CDT Gender Identity Not on file Sexual Orientation Not on file documented as of this encounter Functional Status * Is person deaf or have serious hearing difficulty? Answer Date of Assessment Author No 11/10/2020 12:20 AM CDT Opal Alvarado RN * Is person blind or have serious difficulty seeing? Answer Date of Assessment Author No 11/10/2020 12:20 AM CDT Opal Alvarado RN * Does person have serious difficulty walking/climbing stairs? Answer Date of Assessment Author No 11/10/2020 12:20 AM Opal Olvera RN * Does person have difficulty dressing/bathing? Answer Date of Assessment Author No 11/10/2020 12:20 AM Opal Olvera RN * Does person have difficulty doing errands alone? Answer Date of Assessment Author No 11/10/2020 12:20 AM Opal Olvera RN documented as of this encounter Mental Status * Does person have difficulty concentrating/remembering/making decisions? Answer Entry Date Author No 11/10/2020 12:20 AM Opal Olvera RN documented in this encounter Plan of Treatment Not on file documented as of this encounter Visit Diagnoses Not on filedocumented in this encounter Care Teams Ferryboat Helper Relationship Specialty Start Date End Date Miracle Colon MD PCP - General Internal Medicine 03/31/20 04/24/23 Milan Pierce MD [address] [place] [phone] PCP - General Family Medicine 04/25/23 documented as of this encounter
--- OUTSIDE RECORDS SUMMARY | 2025-01-24 08:56 | XMS_ITS | Clinical Summary ---
Author Organization [facility] Address [address] [place] [phone] Care Team Providers Care Early Childhood Special Educator Name Role Phone Miracle Colon MD Primary Care Provider Allergies No known active allergies Medications rizatriptan [...] 0 Active fluticasone propionate (FLONASE) 50 mcg/spray [place], Suspension nasal inhaler Administer 2 Sprays in [...] 9:06 AM CDT Height 172.7 cm (5' 8) 03/03/2020 9:06 AM CDT Body Mass Index 30.26 03/03/2020 9:06 AM CDT Plan of Treatment Health Maintenance Due Date Last Done Comments HEPATITIS B VACCINES (1 of 3 - 19+ 3-dose series) 2010 HPV/Cotest (21-29) 2012 HPV VACCINES (1 - 3-dose SCDM series) 2018 CERVICAL CANCER SCREENING 2021 HPV/Cotest (30-65) 2021 PAP SMEAR 2021 02/23/2017 (Prev iously completed) Preventative Visit- Commercial 05/15/2024 INFLUENZA VACCINE (#1) 2024 08/09/2018 DTAP/TDAP/TD VACCINES (2 - T d or Tdap) 08/31/2030 08/31/2020 Insurance R [facility] OPTIONS PPO [id number] CHOICE PLUS Care Teams Early Childhood Special Educator Relationship Specialty [place] [address] [address] PCP - General Internal Medicine 05/14/18
--- OUTSIDE RECORDS SUMMARY | 2025-01-24 08:56 | XMS_ITS | Clinical Summary ---
Author Organization [facility] Address [address] [place] [address] Care Team Providers Care Flight Director Name Role Phone Unavailable Primary Care Provider Unavailabl e Social History Tobacco Use Types Packs/Day Years Used Date Smoking Tobacco: Never Assessed Comments Unknown Sex and Gender Information Value Date Recorded Sex Assigned at Not on file Legal Sex Female 1:21 PM DIRECTOR OF INSTITUTIONAL GIVING Gender Identity Not on file Sexual Orientation Not on file Plan of Treatment Health Maintenance Due Date Last Done Comments Hepatitis C Virus (HCV) Screening 1991 TdaP Immunization 1991 Hepatitis B Immunization (1 of 3 - 19+ 3-dose series) 2010 Pap Smear 2012 Human Papillomavirus (HPV) Immunization (1 - 3-dose SCDM series) 2018 Cervical Cancer Screening (CCS) 2021 HPV/Cotest 2021 SARS-COV-2 Immunization ( - season) 2024 Influenza Immunization (#1) 2025 Respiratory Syncytial Virus (RSV) Immunization (Adult) (1 [...]
== END 2025-01-24 08:46 | disposition home or self-care (01) ==
LOC: ANHFOHIMG 08:47
PROVIDERS: Visit Provider Advanced Practice Midwife
DX: Z12.31 Encounter for screening mammogram for malignant neoplasm of breast (principal)
CPT/HCPCS: 77063; 77067

== ENCOUNTER 2025-03-27 08:21 | Outpatient (CLI) | payer OTHER, SELFPAY ==
--- NOTE | ~2025-03-27 | CT_ITS ---
EXAMINATION: CT soft tissue neck w con DATE: 03/27/2025 08:51 INDICATION: Cervicalgia TECHNIQUE: Computed tomography (CT) of the neck was performed with 75 mL Omnipaque-350 intravenous contrast. Automated exposure control and iterative reconstruction technique were employed. The dose-length product was 488.12 mGy-cm. COMPARISON: None FINDINGS: Orbits are normal. Small mucous retention cyst in the right maxillary sinus. Mastoid air cells and middle ear cavities are clear. Submandibular and parotid glands are normal and symmetric. Again seen are multiple likely benign bilateral thyroid nodules the largest measuring up to 1.2 cm in the right thyroid lobe which have been discussed in further detail on ultrasound dated 07/23/2024. There are scattered normal-sized lymph nodes in the neck, no lymphadenopathy. No masses identified. The vasculature is patent and normal in caliber. Airway is unremarkable. Superior mediastinum is unremarkable. Lung apices are normal. Likely positional reversal of the normal cervical lordosis with no significant spondylosis. Bones are otherwise unremarkable. IMPRESSION: 1. Likely benign multinodular goiter. Otherwise unremarkable neck CT. Reviewed, dictated and finalized at location A. RS
--- OUTSIDE RECORDS SUMMARY | 2025-03-27 08:28 | XMS_ITS | Clinical Summary ---
Author Organization [employer] Address [address] [address] Care Team Providers Care Flat Ironer Name Role Phone Milan Pierce MD Primary Care Provider [phone] Source Comments [employer],non-owned Affiliates and Associated Physician Practices is amultiple site organization consisting of ambulatory clinics and hospital sitesin [place], [place], [place] and [place]. This disclosure is being madepursuant to the Care Everywhere program and may not contain all information available regarding this patient. Last updated 18.[employer] Allergies No known active allergies Medications * [...] once daily 30 tablet 1 5 Active topiramate (Topamax) 50 MG tabletIndication s:Class 1 obesity due to excess calories without serious comorbidity with body mass index (BMI) of 30.0 to 30.9 in adult Take 1 (one) tablet by mouth every evening 30 tablet 5 5 Active phentermine (Adipex-P) 37.5 MG tabletIndication s:Class 1 obesity due to excess calories without serious comorbidity with body mass index (BMI) of 30.0 to 30.9 in adult Take 1 (one) tablet by mouth once daily 30 tablet 1 5 03/13/20 25 Discontinu ed(Reorder ) Active Problems Problem [...] Encounters Date Type Department Care Team Description 03/10/2025 Orders Only [facility] Family Medicine [address] [place] [address], [address] [place] [address] Milan Pierce MD Class 1 obesity due to excess calories without serious comorbidity with body mass index (BMI) of 30.0 to 30.9 in adult 02/11/2025 Orders Only [facility] [address], [address] [place] [address] Milan Pierce MD Thyroid nodule 01/27/2025 Results Follow-Up [facility] [address] [place] [address] Shubham Anita Elva, BANK MANAGER-CARRY IN WORKER 12/31/2024 9:15 AM CDT Clinical Support [facility] [address], [address] [place] [address] Blood pressure check from Last 3 Months [...] Recorded Patient Health Questionnaire-2 Score 4 09/11/2023 [place] Depression Scale Answer Date Recorded Last EPDS [...] CDT Respiratory Rate 20 05/11/2023 2:23 PM HOG DROPPER Oxygen Saturation 98% 09/16/2024 1:29 PM CDT [...] VACCINE (1 - 3-dose SCDM series) 2018 PAP with HPV 2021 DEPRESSION SCREENING 05/15/2024 06/27/2023, 04/24/20 COVID-19 VACCINE ( season) 2025 INFLUENZA VACCINE (#1) 2025 Cervical Cancer Screening 07/07/2026 PAP SMEAR 07/07/2026 07/07/2023, 06/16, 07/07/2023 (Done [...] Procedure Name Priority Date/Time Associated Diagnosis Comments MAMMOGRAM 01/24/[address]+GC+TV RFLX HPV HR ASCU Routine 03/31/2020 12:09 PM HOG DROPPER Amenorrhea HIV-1 HIV-2 ANTIBODY + HIV P24 AG PANEL Routine 03/31/2020 11:55 AM HOG DROPPER Amenorrhea from Last 3 Months or Most Recently Relevant to Health Maintenance Results * MAMMOGRAM (01/24/2025) Anatomical Region Laterality Modality Other 01/24/2025 Narrative 01/24/2025 Ordered by an unspecified provider. us Scanned Document SCANNING ONLY Final Result * PAP IG LB CT+GC+TV RFLX HPV HR ASCU (03/31/2020 12:09 PM HOG DROPPER) Diagnosis [facility] ACCOUNT BILL Comment:NEGATIVE FOR INTRAEP [...] UTERINE CERVIX / Unknown 03/31/2020 12:09 PM HOG DROPPER 03/31/2020 Narrative [facility] ACCOUNT BILL - 04/02/2020 3:08 PM HOG DROPPER Source.............Cervix;Endocervix No. of containers..01 ThinPrep Vial Resulting Agency Comment Lab Testing performed at: [facility] [address] [place] [id number] [place] Donny Braden MD LAB - PATHOLOGY/CYTOLOGY OR DERABLES Final Result [facility] ACCOUNT BILL [address] [place] [address] * HIV-1 HIV-2 ANTIBODY + HIV P24 AG PANEL (03/31/2020 11:55 AM HOG DROPPER) HIV Screen 4th Generation w Reflex Non Reactive Non Reactive [facility] ACCOUNT BILL Blood BLOOD SPECIMEN / Unknown 03/31/2020 11:55 AM HOG DROPPER 03/31/2020 Narrative Resulting Agency Comment [facility]: [facility] [address] [id number] Donny Braden MD LAB - CHEMISTRY ORDERABLES Final Result Performing Organization Address City/[facility] Co de Phone Number [facility] ACCOUNT BILL [address] [place] [address] from Last 3 Months or Most Recently Relevant to Health Maintenance Insurance [facility] Advance Directives * Full Code (Latest Code Status on File) Date Activated Date Inactivated Comments 11/09/2020 11:18 PM 11/12/2020 1:30 PM Care Teams Flat Ironer Relationship Specialty Start Date End Date Milan Pierce MD [address] [address] PCP - General Family Medicine 04/25/23
--- OUTSIDE RECORDS SUMMARY | 2025-03-27 08:28 | XMS_ITS | Clinical Summary ---
Author Organization [employer] [facility] Address [id number] [place] [id number] Care Team Providers Care Rn New Grad Name Role Phone Miracle Colon MD Primary Care Provider [phone] Allergies No known active allergies Medications rizatriptan [...] 0 Active fluticasone propionate (FLONASE) 50 mcg/spray Mitchell, Suspension nasal inhaler Administer 2 Sprays in [...] d or Tdap) 08/31/2030 08/31/2020 Insurance R [facility] OPTIONS PPO [id number] CHOICE PLUS Care Teams Rn New Grad Relationship Specialty [place] [id number] [address] PCP - General Internal Medicine 05/14/18
--- OUTSIDE RECORDS SUMMARY | 2025-03-27 08:28 | XMS_ITS | Encounter Summary ---
Author Organization [facility] Address [address] [place] [address] Care Team Providers Care Portrait Consultant Name Role Phone Miracle Colon MD Primary Care Provider [phone] Milan Pierce MD Primary Care Provider [phone] Encounter Details Date Type Department Care Team (Late st Contact Info) Description 06/20/2022 Telephone [facility] Women's Health Maternal & Care [address] [place] [address] Savannah Gamboa Social History Tobacco Use Types Packs/Day Years Used Date Smoking Tobacco: Never Smokeless Tobacco: Never Alcohol Use Standard Drinks/Week Comments Not Currently 0 (1 standard drink = 0.6 oz pur e alcohol) PHQ-2 Answer Date Recorded PHQ2 TOTAL SCORE 0 10/08/2020 [place] Depression Scale Answer Date Recorded Last EPDS [...] on filedocumented in this encounter Care Teams Portrait Consultant Relationship Specialty Start Date End Date Miracle Colon MD PCP - General Internal Medicine 03/31/20 04/24/23 Milan Pierce MD [address] [place] [phone] PCP - General Family Medicine 04/25/23 documented as of this encounter
--- OUTSIDE RECORDS SUMMARY | 2025-03-27 08:28 | XMS_ITS | Clinical Summary ---
Author Organization [facility] Address [address] [place] [phone] Care Team Providers Care Cable Cutter And Swager Name Role Phone Unavailable Primary Care Provider Unavailabl e Social History Tobacco Use Types Packs/Day Years Used Date Smoking Tobacco: Never Assessed Comments Unknown Sex and Gender Information Value Date Recorded Sex Assigned at Not on file Legal Sex Female 1:21 PM [employer] SPECIALIST Gender Identity Not on file Sexual Orientation Not on file Plan of Treatment Health Maintenance Due Date Last Done Comments Hepatitis C Virus (HCV) Screening 1991 TdaP Immunization 1991 Hepatitis B Immunization (1 of 3 - 19+ 3-dose series) 2010 Pap Smear 2012 Human Papillomavirus (HPV) Immunization (1 - 3-dose SCDM series) 2018 Cervical Cancer Screening (CCS) 2021 HPV/Cotest 2021 Influenza Immunization (#1) 2025 SARS-COV-2 Immunization ( season) 2025 Respiratory Syncytial Virus (RSV) Immunization (Adult) [...]
== END 2025-03-27 08:22 | disposition home or self-care (01) ==
PROVIDERS: Visit Provider Otolaryngology
DX: M54.2 Cervicalgia (principal); E04.2 Nontoxic multinodular goiter
CPT/HCPCS: 70491; Q9967